=== PATIENT | female | born 1965 | race American Indian/Alaskan Native ===

== ENCOUNTER → 2018-03-12 12:39 | Outpatient (CLI) | payer MEDICAID, OTHER, SELFPAY | PROVIDERS: Family Provider Family Medicine; PCP Family Medicine; Visit Provider Family Medicine | DX: M79.601 Pain in right arm (principal) | CPT/HCPCS: 95886; 95910 ==

== ENCOUNTER 2018-04-14 19:53 | Emergency (ER) | payer MEDICAID, OTHER, SELFPAY ==
[2018-04-14 19:56] VITALS: BP 153/107; PULSE 95; RESP 18; TEMP 36.3; O2SAT 94
--- NOTE | 2018-04-14 20:50 | DI.US.S_ITS ---
PROCEDURE: US PELVIC COMPLETE INDICATIONS: PAIN TECHNIQUE: Real-time scanning was performed of the pelvic organs, with image documentation. Additional endovaginal scanning was necessary due to incomplete visualization of the adnexal and endometrial structures by transabdominal scanning. COMPARISON: [facility], , PELVIC COMPLETE, 03/16/2012, 12:46. FINDINGS: Transabdominal scanning: Limited scanning through the kidneys shows no hydronephrosis. No pathologic free abdominal or pelvic fluid. Endovaginal scanning: Uterus: Surgically absent Ovaries: Surgically absent. No adnexal mass or cyst sonographically identified. IMPRESSION: Negative examination. Status post hysterectomy and bilateral oophorectomy. No hydronephrosis. Dictated by: Ramos Blue M.D. on 04/15/2018 at 8:20 Approved by: Ramos Blue M.D. on 04/15/2018 at 8:27
--- NOTE | 2018-04-14 20:56 | ED.ABDPAIN ---
HPI - Abdominal Pain General Chief Complaint: Abdominal Pain Stated Complaint: LOWER ABDOMINAL PAINS Time Seen by Provider: 04/14/18 20:28 Source: patient Mode of arrival: ambulatory Limitations: no limitations History of Present Illness HPI narrative: 52-year-old female presents with 2 days of gradually worsening pelvic discomfort and the mention of some mild vaginal discharge. She denies any vaginal bleeding. She has had no fever or chills and denies nausea or vomiting. She is not dizzy nor weak or lightheaded. She mentions that her significant other has been unfaithful MD complaint: abdominal pain Onset (ago): day(s) Pain Consistency: constant Location: suprapubic Severity: moderate Quality: cramping Radiation: none Migration to: no migration Relieving factors: nothing Exacerbating factors: nothing Associated symptoms: denies other symptoms Related Data Previous Rx's Medication Instructions Recorded fluticasone 2 spray INTRANASAL BID #16 gm 06/20/16 sumatriptan succinate [Imitrex] 50 mg PO SEE INSTRUCTIONS #10 tab 09/12/16 ipratropium-albuterol [Combivent 0 INH QID #2 inh 10/17/16 Respimat] promethazine 25 mg PO TIDP PRN #20 tab 03/27/17 venlafaxine 75 mg PO BID #60 tab 05/26/17 dicyclomine 20 mg PO TID #90 tab 06/24/17 levothyroxine 0 PO SEE INSTRUCTIONS #15 tab 07/22/17 levothyroxine [Synthroid] 0 PO SEE INSTRUCTIONS #15 tab 07/22/17 diltiazem HCl 240 mg PO QDAY #30 cap 08/25/17 lansoprazole 30 mg PO BID #60 cap 11/04/17 gabapentin [Neurontin] 900 mg PO QID #360 cap 11/20/17 loratadine 10 mg PO QDAYP PRN #30 tab 12/03/17 propranolol 20 mg PO BID #60 tab 12/03/17 citalopram 0 PO SEE INSTRUCTIONS #60 tab 01/01/18 doxycycline monohydrate 100 mg PO BID 14 Days #28 cap 04/14/18 Allergies Allergy/AdvReac Type Severity Reaction Status Date / Time amoxicillin [AMOXICILLIN] Allergy Unknown Unverified 01/14/18 12:20 clindamycin [CLINDAMYCIN] Allergy Unknown Unverified 01/14/18 12:20 doxycycline [DOXYCYCLINE] Allergy Unknown Unverified 01/14/18 12:20 metronidazole [METRONIDAZOLE] Allergy Unknown rash Unverified 01/14/18 12:20 Penicillins [PENICILLINS] Allergy Unknown Unverified 01/14/18 12:20 trimethoprim [TRIMETHOPRIM] Allergy Unknown Unverified 01/14/18 12:20 erythromycin base AdvReac Unknown Unverified 01/14/18 12:20 [ERYTHROMYCIN BASE] IN CONTRAST Allergy Unknown iv contrast Uncoded 01/14/18 12:20 Review of Systems Review of Systems All systems reviewed & are unremarkable except as noted in HPI and below Constitutional Denies chills, Denies fever(s), Denies lethargy and Denies weakness Eyes Denies change in vision, Denies eye discharge, Denies irritation and Denies loss of vision ENT Ears, Nose, Mouth, and Throat: Denies change in voice, Denies neck pain and Denies sore throat Cardiovascular Denies chest pain, Denies irregular heart rhythm, Denies lightheadedness, Denies palpitations, Denies dyspnea, Denies dyspnea on exertion and Denies orthopnea Respiratory Denies cough, Denies dyspnea, Denies dyspnea on exertion and Denies wheezing Gastrointestinal Gastrointestinal: Denies abdominal pain, Denies change in bowel habits, Denies diarrhea, Denies nausea and Denies vomiting Genitourinary Denies hematuria, Reports pelvic pain, Denies flank pain, Denies urinary incontinence, Denies urinary urgency, Reports vaginal discharge and Reports vaginal odor Musculoskeletal Denies neck pain Integumentary/Breasts Denies pruritus, Denies erythema, Denies rash and Denies wounds Neurologic Denies confusion, Denies loss of vision and Denies weakness Psychiatric Denies anxiety, Denies confusion, Denies depression, Denies homicidal ideation and Denies suicidal ideation Endocrine Denies palpitations Hematologic/Lymphatic Denies easy bruising Allergic/Immunologic Denies wheezing Exam Narrative Exam Narrative: 52-year-old female is upset, tearful and uncomfortable Initial Vital Signs Initial Vital Signs: Vital Signs Temperature 97.4 F L 04/14/18 19:56 Pulse Rate 95 H 04/14/18 19:56 Respiratory Rate 18 04/14/18 19:56 Blood Pressure 153/107 H 04/14/18 19:56 Pulse Oximetry 94 04/14/18 19:56 Const General: cooperative, well developed and in distress Nutritional Appearance: well nourished Orientation: alert, awake, oriented x3 and not confused [facility] Head: normocephalic and atraumatic Ears: external ears normal and TM's normal bilaterally Nose: external nose normal and No nasal discharge Face and sinus: sinuses nontender, face symmetric, no sinus tenderness and No dry mucous membranes Mouth: oral mucosae normal and moist mucous membranes Teeth and gingiva: dentition normal Throat: tonsils normal and uvula midline Resp Effort & Inspection: normal respiratory effort, able to speak in complete sentences, no respiratory distress and no use of accessory muscles Auscultation: clear to auscultation bilaterally, no rales, no rhonchi and no wheezes GI Inspection: non-distended Palpation: soft, no hepatosplenomegaly, No guarding, No pulsatile mass and No tender (Suprapubic tenderness) Auscultation: normal bowel sounds General: bimanual renal exam normal bilaterally External Female Exam: external appearance normal Speculum Exam - Vagina: abnormal vaginal discharge, no foreign bodies, no lacerations, no lesions and No vaginal bleeding Speculum Exam - Cervix: cervical tenderness Bimanual Exam- Vagina & Uterus: cervical tenderness OB/External & Speculum: no foreign bodies and No vaginal bleeding Back/Spine/Pelvis Back: No CVA tenderness Cervical Spine: cervical ROM normal and No pain with cervical ROM Thoracic/Lumbar Spine: thoracic and lumbar spine normal to inspection Extrem General: full ROM, no clubbing, cyanosis or edema, no pedal edema and no calf tenderness Course Orders Ordered: ED Orders 04/14/18 20:20 Complete Blood Count AUTO DIFF Stat Comprehensive Metabolic Panel Stat 04/14/18 20:50 US pelvic complete Stat 04/14/18 21:15 Urine Chlamydia Gonorrhea PCR Stat Urine Culture Stat 04/14/18 22:08 Genital Culture Stat Wet Prep Tric BV Eva Stat Discontinued Medications Doxycycline Hyclate (Vibramycin) 100 mg PO NOW ONE Stop: 04/14/18 20:48 Last Admin: 04/14/18 21:18 Dose: 100 mg Sodium Chloride (Normal Saline 0.9%) 1,000 mls @ 1,000 mls/hr IV BOLUS PRN PRN Reason: Fluid replacement Last Infusion: 04/14/18 22:25 Dose: 0 mls/hr Admin: 07/10/18 21:18 Dose: 1,000 mls/hr Ceftriaxone Sodium 250 mg/ (Sodium Chloride) 100 mls @ 200 mls/hr IV NOW ONE Stop: 04/14/18 21:44 Ceftriaxone Sodium 250 mg/ (Sodium Chloride) 50 mls @ 100 mls/hr IV NOW ONE Stop: 04/14/18 21:44 Last Infusion: 04/14/18 21:52 Dose: 0 mls/hr Admin: 04/14/18 21:18 Dose: 100 mls/hr Ondansetron HCl (Zofran) 4 mg IV NOW ONE Stop: 04/14/18 21:51 Last Admin: 04/14/18 21:51 Dose: 4 mg Reevaluation(s) Reevaluation #1: Went through the with discussion with patient about her long list of antibiotic allergies. She states that most of them are incorrect. Specifically we talked about the penicillins and she states she thinks maybe she used to have an allergy but she has had them in the past and has had no problems such as rash, hives or trouble breathing. Additionally we talked about doxycycline and she states she has had that without any difficulty and is unsure how it and up on her list Time: 20:59 Vital Signs - 8 hr 04/14/18 19:56 04/14/18 21:32 04/14/18 22:58 Temperature 97.4 F L Pulse Rate 95 H 87 90 Respiratory Rate 18 18 Blood Pressure 153/107 H Blood Pressure [Left Arm] 138/74 H 110/65 Pulse Oximetry 94 99 99 MDM - Abdominal Pain Differential Diagnosis Differential diagnosis: Likely abdominal pain, acute appendicitis, endometriosis and other (PID vs. other) Medical Records Attestation: I reviewed the patient's medical records. Lab Data Attestation: I reviewed the patient's lab results. Result diagrams: 04/14/18 20:20 04/14/18 20:20 Lab Results 04/14/18 04/14/18 04/14/18 Range/Units 20:20 20:20 21:15 WBC 8.7 (4.5-11.0) X10^3/uL RBC 4.87 (4.0-5.2) X10^6/uL Hgb 13.4 (12.0-16.0) g/dL Hct 39.9 (36-46) % MCV 82.0 (80-100) fL MCH 27.6 (26-34) PG MCHC 33.6 (30-36) % RDW 15.2 H (11.6-14.8) % Plt Count 384 (150-400) X10^3/uL Neut % (Auto) 55.9 (50-75) % Lymph % (Auto) 37.2 (25-40) % Robertson % (Auto) 5.5 (3-14) % Eos % (Auto) 0.4 L (2-4) % Baso % (Auto) 1.0 (0-2) % Neut # (Auto) 4900 (2422-0046) /uL Sodium 140 (137-145) mmol/L Potassium 4.2 (3.4-5.1) mmol/L Chloride 100 (98-107) mmol/L Carbon Dioxide 30 (22-32) mmol/L BUN 11 (7-17) mg/dL Creatinine 0.70 (0.52-1.04) mg/dL Estimated GFR > 60.0 (>60) mL/min BUN/Creatinine Ratio 15.7 (6-22) Glucose 101 H (70-100) mg/dL Calcium 8.9 (8.4-10.2) mg/dL Total Bilirubin 0.3 (0.2-1.3) mg/dL AST 59 H (14-36) IU/L ALT 17 (9-52) IU/L Alkaline Phosphatase 92 (38-126) U/L Total Protein 7.7 (6.3-8.2) g/dL Albumin 4.4 (3.5-5.0) g/dL Globulin 3.3 (1.7-4.1) g/dL Albumin/Globulin Ratio 1.3 (1.0-2.8) Ur Chlamydia DNA (PCR) Not detected N gonorrhoeae DNA (PCR) Not detected Point of care testing: Point of Care Testing Test Results Negative Urine Dip Bedside Urine Glucose Negative Bedside Urine Bilirubin - Negative Bedside Urine Ketone - Negative Urine Specific [place] 1.010 Bedside Urine Occult Blood - Negative Bedside Urine pH 6.0 Bedside Urine Protein - Negative Bedside Urine Urobilinogen - Negative Bedside Urine Nitrite - Negative Bedside Urine Leukocytes - Negative Esterase Imaging Data US - abdomen: Radiologist's impression: NAP Discharge Plan Departure Patient Disposition: Home, Self-Care Clinical Impression: Acute pelvic inflammatory disease (PID) Discharge Date/Time: 04/14/18 23:02 Interventions: ED Discharge Assessment Last Done: 04/14/18 23:01 Instructions: DI for Pelvic Inflammatory Disease Activity Restrictions/Additional Instructions: *You have been diagnosed with [ acute pelvic inflammatory disease ] *What to do: *Take medications as directed *Follow up with your primary care provider in 2-3 days *Return to ER if you should have any new, worsening or concerning symptoms such as worsening pain, fever over 101 F, persistent vomiting, or other bothersome symptoms Prescriptions: New doxycycline monohydrate 100 mg capsule 100 mg PO BID 14 Days Qty: 28 RF: 0 No Action fluticasone 16 GM spray,suspension 2 spray Intranasal BID Qty: 16 RF: 2 sumatriptan succinate [Imitrex] 50 MG tablet 50 mg PO SEE INSTRUCTIONS Qty: 10 RF: 3 ipratropium-albuterol [Combivent Respimat] 4 GM mist INH QID Qty: 2 RF: 11 promethazine 25 MG tablet 25 mg PO TIDP PRNQty: 20 RF: 2 venlafaxine 75 MG tablet 75 mg PO BID Qty: 60 RF: 11 dicyclomine 20 MG tablet 20 mg PO TID Qty: 90 RF: 11 levothyroxine 25 MCG tablet PO SEE INSTRUCTIONS Qty: 15 RF: 5 levothyroxine [Synthroid] 50 MCG tablet PO SEE INSTRUCTIONS Qty: 15 RF: 5 diltiazem HCl 240 MG capsule,extended release 24hr 240 mg PO QDAY Qty: 30 RF: 11 lansoprazole 30 MG capsule,delayed release(DR/EC) 30 mg PO BID Qty: 60 RF: 2 gabapentin [Neurontin] 300 MG capsule 900 mg PO QID Qty: 360 RF: 5 propranolol 20 MG tablet 20 mg PO BID Qty: 60 RF: 5 loratadine 10 MG tablet 10 mg PO QDAYP PRNQty: 30 RF: 11 citalopram 10 MG tablet PO SEE INSTRUCTIONS Qty: 60 RF: 0
[2018-04-14 21:00] LABS: Add Manual Diff / Slide Review NO; Eosinophils Percent Auto 0.4 % (2-4); Hematocrit 39.9 % (36-46); Hemoglobin 13.4 g/dL (12.0-16.0); Lymphocytes Percent Auto 37.2 % (25-40); Mean Corpuscular HGB Conc 33.6 % (30-36); Mean Corpuscular Hemoglobin 27.6 PG (26-34); Monocytes Percent Auto 5.5 % (3-14); Neutrophils Absolute Auto 4900 /uL (3000-5900); Neutrophils Percent Auto 55.9 % (50-75); Platelet Count 384 X10^3/uL (150-400); Red Blood Cell Count 4.87 X10^6/uL (4.0-5.2); Red Cell Distribution Width 15.2 % (11.6-14.8); White Blood Cell Count 8.7 X10^3/uL (4.5-11.0)
[2018-04-14 21:07] LABS: Alanine Aminotransferase 17 IU/L (9-52); Albumin 4.4 g/dL (3.5-5.0); Albumin Globulin Ratio 1.3 (1.0-2.8); Alkaline Phosphatase 92 U/L (38-126); Aspartate Aminotransferase 59 IU/L (14-36); BUN Creatinine Ratio 15.7 (6-22); Bilirubin Total 0.3 mg/dL (0.2-1.3); Blood Urea Nitrogen 11 mg/dL (7-17); Calcium 8.9 mg/dL (8.4-10.2); Carbon Dioxide 30 mmol/L (22-32); Chloride 100 mmol/L (98-107); Estimated Glomerular Filt Rate > 60.0 mL/min (>60); Globulin 3.3 g/dL (1.7-4.1); Glucose 101 mg/dL (70-100); HEMOLYSIS 37 (0-50); Potassium 4.2 mmol/L (3.4-5.1); Sodium 140 mmol/L (137-145); Total Protein 7.7 g/dL (6.3-8.2)
[2018-04-14] MEDS: SODIUM CHLORIDE 0.9% 1,000 ML 1000 ML IV (21:18)
[2018-04-14] MEDS: DOXYCYCLINE HYCLATE 100 MG TABLET PO (21:18)
[2018-04-14 21:32] VITALS: BP 138/74; PULSE 87; O2SAT 99
[2018-04-14] MEDS: ONDANSETRON 4 MG/2 ML INJ IV (21:51)
[2018-04-14 22:58] VITALS: BP 110/65; PULSE 90; RESP 18; O2SAT 99
[2018-04-14 23:05] LABS: Urine N gonorrhoeae NOT DETECTED
[2018-04-14 23:07] LABS: Urine Chlamydia NOT DETECTED
--- NOTE | 2018-04-15 11:36 | PC.NURSE ---
Pt called stating prescription was not at [facility]. Prescription confirmed in Dr. Navarrete's notes. Doxycycline 100 mg po bid x 14 days called into [facility] per pt request.
== END 2018-04-14 23:02 | disposition home or self-care (01) ==
PROVIDERS: Emergency Provider Emergency Medicine
DX: N73.0 Acute parametritis and pelvic cellulitis (principal)
CPT/HCPCS: 36591; 76830; 76856; 80053; 81003; 81025; 85025; 87070; 87086; 87205; 87210; 87491; 87591; 96361; 96365; 96375; 99283; 99284; J0696; J2405

== ENCOUNTER 2018-04-16 14:56 | Emergency (ER) | payer MEDICAID, OTHER, SELFPAY ==
[2018-04-16 15:18] VITALS: BP 145/92; PULSE 88; RESP 17; TEMP 37.1; O2SAT 99; BMI 36.8
--- NOTE | 2018-04-16 15:27 | ED_ITS ---
HPI - Abdominal Pain General Chief Complaint: Abdominal Pain Stated Complaint: PELIVIS AND ABD PAIN Time Seen by Provider: 04/16/18 14:59 Source: patient Mode of arrival: ambulatory Limitations: no limitations History of Present Illness HPI narrative: 52-year-old female seen here in the emergency department a couple days ago for lower abdominal/ pelvic pain. Was diagnosed with PID. Was sent home with antibiotics. She states she started his antibiotics yesterday. She states that since being discharged here she has had continued lower abdominal pain. Describing it as bilateral but left greater than right. Does have some vaginal discharge. No urinary symptoms. No bowel changes. Related Data Previous Rx's Medication Instructions Recorded fluticasone 2 spray INTRANASAL BID #16 gm 06/20/16 sumatriptan succinate [Imitrex] 50 mg PO SEE INSTRUCTIONS #10 tab 09/12/16 ipratropium-albuterol [Combivent 0 INH QID #2 inh 10/17/16 Respimat] promethazine 25 mg PO TIDP PRN #20 tab 03/27/17 venlafaxine 75 mg PO BID #60 tab 05/26/17 dicyclomine 20 mg PO TID #90 tab 06/24/17 levothyroxine 0 PO SEE INSTRUCTIONS #15 tab 07/22/17 levothyroxine [Synthroid] 0 PO SEE INSTRUCTIONS #15 tab 07/22/17 diltiazem HCl 240 mg PO QDAY #30 cap 08/25/17 lansoprazole 30 mg PO BID #60 cap 11/04/17 gabapentin [Neurontin] 900 mg PO QID #360 cap 11/20/17 loratadine 10 mg PO QDAYP PRN #30 tab 12/03/17 propranolol 20 mg PO BID #60 tab 12/03/17 citalopram 0 PO SEE INSTRUCTIONS #60 tab 01/01/18 doxycycline monohydrate 100 mg PO BID 14 Days #28 cap 04/14/18 Allergies Allergy/AdvReac Type Severity Reaction Status Date / Time amoxicillin [AMOXICILLIN] Allergy Unknown Verified 04/16/18 15:17 clindamycin [CLINDAMYCIN] Allergy Unknown Verified 04/16/18 15:17 doxycycline [DOXYCYCLINE] Allergy Unknown Verified 04/16/18 15:17 metronidazole [METRONIDAZOLE] Allergy Unknown rash Verified 04/16/18 15:17 Penicillins [PENICILLINS] Allergy Unknown Verified 04/16/18 15:17 trimethoprim [TRIMETHOPRIM] Allergy Unknown Verified 04/16/18 15:17 erythromycin base AdvReac Unknown Verified 04/16/18 15:17 [ERYTHROMYCIN BASE] IN CONTRAST Allergy Unknown iv contrast Uncoded 01/14/18 12:20 Review of Systems Constitutional Denies chills, Denies fatigue and Denies fever(s) Cardiovascular Denies chest pain and Denies dyspnea Respiratory Denies dyspnea Gastrointestinal Gastrointestinal: Reports abdominal pain, Denies cramping, Denies diarrhea, Reports nausea and Denies vomiting Genitourinary Denies genital lesions, Denies dysuria, Reports pelvic pain, Denies flank pain, Denies urinary hesitancy, Denies urinary urgency and Reports vaginal discharge Musculoskeletal Denies back pain, Denies myalgias and Denies arthralgias Integumentary/Breasts Denies lesions and Denies rash Endocrine Denies fatigue Hematologic/Lymphatic Denies easy bleeding and Denies easy bruising PFSH Social History Smoking Status: Former smoker Exam Initial Vital Signs Initial Vital Signs: Vital Signs Temperature 98.7 F 04/16/18 15:18 Pulse Rate 88 04/16/18 15:18 Respiratory Rate 17 04/16/18 15:18 Blood Pressure 145/92 H 04/16/18 15:18 Pulse Oximetry 99 04/16/18 15:18 Const General: cooperative, healthy appearing, well developed, well groomed and No acute distress Orientation: alert, awake and oriented x3 HENMT Head: normal to inspection Resp Effort & Inspection: normal respiratory effort Auscultation: clear to auscultation bilaterally Cardio Rate: regular rate Pulses: radial pulses present GI Inspection: non-distended Palpation: soft, No firm and tender ( Bilateral left greater than right lower abdominal pain without rebound or guarding) Skin Lesions: no lesions Rashes: no rashes Neuro General: alert, awake and oriented x3 Cognition: normal cognition Speech: speech normal Extrem General: normal to inspection and capillary refill normal Course Orders Ordered: ED Orders 04/16/18 15:29 pelvic complete Stat 04/16/18 16:00 Complete Blood Count AUTO DIFF Stat Comprehensive Metabolic Panel Stat Lipase Stat 04/16/18 16:07 CT abdomen pelvis w con Stat 04/16/18 17:13 Urinalysis and Microscopic Stat Urine Culture Stat Discontinued Medications Diphenhydramine HCl (Benadryl) 50 mg IV NOW ONE Stop: 04/16/18 16:51 Last Admin: 04/16/18 17:06 Dose: 50 mg Methylprednisolone (Solu-Medrol) 40 mg IV NOW ONE Stop: 04/16/18 16:51 Last Admin: 04/16/18 17:06 Dose: 40 mg Morphine Sulfate (Morphine) 4 mg IV NOW ONE Stop: 04/16/18 15:28 Last Admin: 04/16/18 16:06 Dose: 4 mg Ondansetron HCl (Zofran) 4 mg IV NOW ONE Stop: 04/16/18 15:28 Last Admin: 04/16/18 16:06 Dose: 4 mg Vital Signs - 8 hr 04/16/18 15:18 04/16/18 16:34 04/16/18 17:39 Temperature 98.7 F Pulse Rate 88 85 87 Respiratory Rate 17 16 16 Blood Pressure 145/92 H Blood Pressure [Right Arm] 120/82 H 117/90 H Pulse Oximetry 99 95 97 04/16/18 19:10 Temperature Pulse Rate 84 Respiratory Rate 16 Blood Pressure Blood Pressure [Right Arm] 119/89 H Pulse Oximetry 96 MDM - Abdominal Pain Medical Records Attestation: I reviewed the patient's medical records. Lab Data Attestation: I reviewed the patient's lab results. Result diagrams: 04/16/18 16:00 04/16/18 16:00 Lab Results 04/16/18 04/16/18 04/16/18 Range/Units 16:00 16:00 17:13 WBC 7.6 (4.5-11.0) X10^3/uL RBC 5.07 (4.0-5.2) X10^6/uL Hgb 14.0 (12.0-16.0) g/dL Hct 41.8 (36-46) % MCV 82.5 (80-100) fL MCH 27.6 (26-34) PG MCHC 33.4 (30-36) % RDW 14.7 (11.6-14.8) % Plt Count 341 (150-400) X10^3/uL Neut % (Auto) 65.7 (50-75) % Lymph % (Auto) 27.5 (25-40) % [place] % (Auto) 5.4 (3-14) % Eos % (Auto) 0.3 L (2-4) % Baso % (Auto) 1.1 (0-2) % Neut # (Auto) 5000 (4349-5226) /uL Sodium 141 (137-145) mmol/L Potassium 4.4 (3.4-5.1) mmol/L Chloride 100 (98-107) mmol/L Carbon Dioxide 31 (22-32) mmol/L BUN 7 (7-17) mg/dL Creatinine 0.80 (0.52-1.04) mg/dL Estimated GFR > 60.0 (>60) mL/min BUN/Creatinine Ratio 8.8 (6-22) Glucose 91 (70-100) mg/dL Calcium 9.2 (8.4-10.2) mg/dL Total Bilirubin 0.4 (0.2-1.3) mg/dL AST 32 (14-36) IU/L ALT 26 (9-52) IU/L Alkaline Phosphatase 91 (38-126) U/L Total Protein 7.8 (6.3-8.2) g/dL Albumin 4.6 (3.5-5.0) g/dL Globulin 3.2 (1.7-4.1) g/dL Albumin/Globulin Ratio 1.4 (1.0-2.8) Lipase 49 (23-300) U/L Urine Color Yellow Urine Appearance Clear Urine pH 5.5 (4.5-8.0) Ur Specific [place] 1.010 (1.000-1.035) Urine Protein Negative (Negative) Urine Glucose (UA) Negative (Normal) g/dL Urine Ketones Negative (NEGATIVE) Urine Occult Blood Negative (Negative) Urine Nitrate Negative (Negative) Urine Bilirubin Negative (NEGATIVE) Urine Urobilinogen 0.2 (0.2) E.U./dL Ur Leukocyte Esterase Negative (NEGATIVE) Urine RBC None seen (0-5/HPF) Urine WBC None seen (0-5/HPF) Ur Squamous Epith Cells 0-1 /hpf Urine Bacteria None seen (None) Ur Culture Indicated? Not Reportable Micro UA Comment Not Reportable Point of care testing: Urine Dip Bedside Urine Glucose Negative Bedside Urine Bilirubin - Negative Bedside Urine Ketone - Negative Urine Specific [place] 1.020 Bedside Urine Occult Blood - Negative Bedside Urine pH 6.0 Bedside Urine Protein - Negative Bedside Urine Urobilinogen - Negative Bedside Urine Nitrite - Negative Bedside Urine Leukocytes - Negative Esterase Imaging Data ultrasound pelvis: Radiologist's impression: ROCEDURE: US PELVIC COMPLETE INDICATIONS: PAIN; POSSIBLE TOA TECHNIQUE: Real-time scanning was performed of the pelvic organs, with image documentation. Additional endovaginal scanning was necessary due to incomplete visualization of the adnexal and endometrial structures by transabdominal scanning. COMPARISON: [facility], CT, ABDOMEN/PELVIS WITHOUT CONTRAS, 01/19/2016, 16: 02. [facility], , US PELVIC COMPLETE, 04/14/2018, 22:31. FINDINGS: Transabdominal scanning: Limited scanning through the kidneys shows no hydronephrosis. No pathologic free abdominal or pelvic fluid. Endovaginal scanning: Uterus: Uterus is surgically absent. Ovaries: Ovaries are not visualize, presumably secondary to bilateral oophorectomy. No mass or free fluid in the adnexa or cul-de-sac. IMPRESSION: 1. No ultrasound findings to explain pelvic pain. 2. Hysterectomy and bilateral oophorectomy. 3. No free fluid. Dictated by: Venice Xie M.D. on 04/16/2018 at 16:25 CT scan - abdomen: Radiologist's impression: PROCEDURE: CT ABDOMEN PELVIS W CON INDICATIONS: Bilateral lower abdominal pain left greater than right TECHNIQUE: After the administration of intravenous contrast, 5 mm thick sections acquired from the diaphragm to the symphysis. 5 mm coronal and sagittal reformats were acquired. For radiation dose reduction, the following was used: automated exposure control, adjustment of mA and/or kV according to patient size. COMPARISON: [facility], CT, ABDOMEN/PELVIS WITH CONTRAST, 03/08/2013, 4: 22. [facility], CT, ABDOMEN/PELVIS WITHOUT CONTRAS, 01/19/2016, 16:02. [facility] , , US PELVIC COMPLETE, 04/16/2018, 15:55. [facility], , US PELVIC COMPLETE, 07/2018, 22:31. [facility], CT, ABDOMEN/PELVIS WITH CONTRAST, 07/07/2014, 20:16. FINDINGS: Image quality: Excellent. ABDOMEN: Lung bases: Lung bases are clear. Heart size is normal. Solid organs: Liver is normal in size and enhancement. Gallbladder has been removed. Biliary system is non dilated for a post cholecystectomy patient. Pancreas enhances normally. Spleen is normal in size and enhancement. No adrenal nodules. Kidneys demonstrate normal size and enhancement, without hydronephrosis. Peritoneum and bowel: Bowel loops demonstrate normal wall thickness and caliber. No free fluid or air. Incidental note is made of a normal-appearing appendix. Nodes and vessels: No retroperitoneal or mesenteric adenopathy by size criteria. Aorta and inferior vena cava are normal in size. Miscellaneous: No ventral hernias. Postoperative change from prior umbilical hernia repair can be seen. PELVIS: Genitourinary: Bladder wall thickness is normal. This patient is status post hysterectomy. No adnexal masses are seen. Miscellaneous: No enlarged inguinal or pelvic lymph nodes are seen. There is a fat-containing left inguinal hernia seen. Bones: No suspicious bony lesions. No vertebral body compression fractures. Degenerative changes are seen throughout. Fusion of the sacroiliac joints can be seen, left worse than right. Mild levoconvex scoliotic curvature is noted. IMPRESSION: No imaging explanation is found for this patient's presenting history of bilateral lower abdominal pain. Negative for diverticulitis. Normal appendix. Incidental note is made of: Hysterectomy Cholecystectomy Prior periumbilical hernia repair Mild fat containing left inguinal hernia Dictated by: Cristobal Hill M.D. on 04/16/2018 at 17:00 Approved by: Cristobal Hill M.D. on 04/16/2018 at 17:04 [facility] Narrative Medical decision making narrative: patient is currently being treated for PID. Pelvic ultrasound is negative for any abscess. CT scan of her abdomen shows no acute pathology. No indication to switch antibiotics. No indication for further workup. No indication for admission the hospital. Informed patient of the results of her scans. We discussed the importance of her continuing with the antibiotics. She expressed understanding and agreement with plan. Discharge Plan Departure Patient Disposition: Home, Self-Care Clinical Impression: Abdominal pain Discharge Date/Time: 04/16/18 19:54 Interventions: ED Discharge Assessment Last Done: 04/16/18 19:52 Instructions: DI for Abdominal Pain-Adult Activity Restrictions/Additional Instructions: continue to take the antibiotics that she were given on her last ER visit as directed. You can take Tylenol or Motrin for any discomfort. Call your primary care doctor for a follow-up. Return to the emergency department for any new or worsening symptoms Prescriptions: No Action fluticasone 16 GM spray,suspension 2 spray Intranasal BID Qty: 16 RF: 2 sumatriptan succinate [Imitrex] 50 MG tablet 50 mg PO SEE INSTRUCTIONS Qty: 10 RF: 3 ipratropium-albuterol [Combivent Respimat] 4 GM mist INH QID Qty: 2 RF: 11 promethazine 25 MG tablet 25 mg PO TIDP PRNQty: 20 RF: 2 venlafaxine 75 MG tablet 75 mg PO BID Qty: 60 RF: 11 dicyclomine 20 MG tablet 20 mg PO TID Qty: 90 RF: 11 levothyroxine 25 MCG tablet PO SEE INSTRUCTIONS Qty: 15 RF: 5 levothyroxine [Synthroid] 50 MCG tablet PO SEE INSTRUCTIONS Qty: 15 RF: 5 diltiazem HCl 240 MG capsule,extended release 24hr 240 mg PO QDAY Qty: 30 RF: 11 lansoprazole 30 MG capsule,delayed release(DR/EC) 30 mg PO BID Qty: 60 RF: 2 gabapentin [Neurontin] 300 MG capsule 900 mg PO QID Qty: 360 RF: 5 propranolol 20 MG tablet 20 mg PO BID Qty: 60 RF: 5 loratadine 10 MG tablet 10 mg PO QDAYP PRNQty: 30 RF: 11 citalopram 10 MG tablet PO SEE INSTRUCTIONS Qty: 60 RF: 0 doxycycline monohydrate 100 mg capsule 100 mg PO BID 14 Days Qty: 28 RF: 0
[2018-04-16] MEDS: ONDANSETRON 4 MG/2 ML INJ IV (16:06)
[2018-04-16] MEDS: MORPHINE 4 MG/ML INJ IV (16:06)
--- NOTE | 2018-04-16 16:07 | DI.CT.S_ITS ---
PROCEDURE: CT ABDOMEN PELVIS W CON INDICATIONS: Bilateral lower abdominal pain left greater than right TECHNIQUE: After the administration of intravenous contrast, 5 mm thick sections acquired from the diaphragm to the symphysis. 5 mm coronal and sagittal reformats were acquired. For radiation dose reduction, the following was used: automated exposure control, adjustment of mA and/or kV according to patient size. COMPARISON: [facility], CT, ABDOMEN/PELVIS WITH CONTRAST, 03/08/2013, 4:22. [facility], CT, ABDOMEN/PELVIS WITHOUT CONTRAS, 01/19/2016, 16:02. [facility], [place], US PELVIC COMPLETE, 04/16/2018, 15:55. [facility], [place], US PELVIC COMPLETE, 04/14/2018, 22:31. [facility], CT, ABDOMEN/PELVIS WITH CONTRAST, 07/07/2014, 20:16. FINDINGS: Image quality: Excellent. ABDOMEN: Lung bases: Lung bases are clear. Heart size is normal. Solid organs: Liver is normal in size and enhancement. Gallbladder has been removed. Biliary system is non dilated for a post cholecystectomy patient. Pancreas enhances normally. Spleen is normal in size and enhancement. No adrenal nodules. Kidneys demonstrate normal size and enhancement, without hydronephrosis. Peritoneum and bowel: Bowel loops demonstrate normal wall thickness and caliber. No free fluid or air. Incidental note is made of a normal-appearing appendix. Nodes and vessels: No retroperitoneal or mesenteric adenopathy by size criteria. Aorta and inferior vena cava are normal in size. Miscellaneous: No ventral hernias. Postoperative change from prior umbilical hernia repair can be seen. PELVIS: Genitourinary: Bladder wall thickness is normal. This patient is status post hysterectomy. No adnexal masses are seen. Miscellaneous: No enlarged inguinal or pelvic lymph nodes are seen. There is a fat-containing left inguinal hernia seen. Bones: No suspicious bony lesions. No vertebral body compression fractures. Degenerative changes are seen throughout. Fusion of the sacroiliac joints can be seen, left worse than right. Mild levoconvex scoliotic curvature is noted. IMPRESSION: No imaging explanation is found for this patient's presenting history of bilateral lower abdominal pain. Negative for diverticulitis. Normal appendix. Incidental note is made of: Hysterectomy Cholecystectomy Prior periumbilical hernia repair Mild fat containing left inguinal hernia Dictated by: Cristobal Hill M.D. on 04/16/2018 at 17:00 Approved by: Cristobal Hill M.D. on 04/16/2018 at 17:04
[2018-04-16 16:12] LABS: Add Manual Diff / Slide Review NO; Basophils Percent Auto 1.1 % (0-2); Eosinophils Percent Auto 0.3 % (2-4); Hematocrit 41.8 % (36-46); Lymphocytes Percent Auto 27.5 % (25-40); Mean Corpuscular HGB Conc 33.4 % (30-36); Mean Corpuscular Hemoglobin 27.6 PG (26-34); Mean Corpuscular Volume 82.5 fL (80-100); Monocytes Percent Auto 5.4 % (3-14); Neutrophils Absolute Auto 5000 /uL (3000-5900); Neutrophils Percent Auto 65.7 % (50-75); Platelet Count 341 X10^3/uL (150-400); Red Blood Cell Count 5.07 X10^6/uL (4.0-5.2); Red Cell Distribution Width 14.7 % (11.6-14.8); White Blood Cell Count 7.6 X10^3/uL (4.5-11.0)
[2018-04-16 16:22] LABS: Alanine Aminotransferase 26 IU/L (9-52); Albumin 4.6 g/dL (3.5-5.0); Albumin Globulin Ratio 1.4 (1.0-2.8); Alkaline Phosphatase 91 U/L (38-126); Aspartate Aminotransferase 32 IU/L (14-36); BUN Creatinine Ratio 8.8 (6-22); Bilirubin Total 0.4 mg/dL (0.2-1.3); Blood Urea Nitrogen 7 mg/dL (7-17); Calcium 9.2 mg/dL (8.4-10.2); Carbon Dioxide 31 mmol/L (22-32); Chloride 100 mmol/L (98-107); Estimated Glomerular Filt Rate > 60.0 mL/min (>60); Globulin 3.2 g/dL (1.7-4.1); Glucose 91 mg/dL (70-100); HEMOLYSIS < 15 (0-50); Lipase 49 U/L (23-300); Potassium 4.4 mmol/L (3.4-5.1); Sodium 141 mmol/L (137-145); Total Protein 7.8 g/dL (6.3-8.2)
[2018-04-16 16:34] VITALS: BP 120/82; PULSE 85; RESP 16; O2SAT 95
[2018-04-16] MEDS: diphenhydrAMINE 50 MG/ML VIAL IV (17:06)
[2018-04-16 17:23] LABS: Bacteria Urine None Seen; RBC Urine None Seen (0-5/HPF); WBC Urine None Seen (0-5/HPF)
[2018-04-16 17:24] LABS: Appearance Urine UA CLEAR; Bilirubin Urine UA NEGATIVE (NEGATIVE); Color Urine UA YELLOW; Glucose Urine UA NEGATIVE (Normal); Ketones Urine UA NEGATIVE (NEGATIVE); Leukocyte Esterase Urine UA NEGATIVE (NEGATIVE); Nitrite Urine UA Negative (Negative); Occult Blood Urine UA NEGATIVE (Negative); Protein Urine UA NEGATIVE (Negative); Urobilinogen Urine UA 0.2 E.U./dL (0.2); pH Urine UA 5.5 (4.5-8.0)
[2018-04-16 17:32] LABS: Squamous Epithelial Cell Urine 0-1 /HPF
[2018-04-16 17:39] VITALS: BP 117/90; PULSE 87; RESP 16; O2SAT 97
[2018-04-16 19:10] VITALS: BP 119/89; PULSE 84; RESP 16; O2SAT 96
== END 2018-04-16 19:54 | disposition home or self-care (01) ==
PROVIDERS: Emergency Provider Emergency Medicine
DX: R10.9 Unspecified abdominal pain (principal)
CPT/HCPCS: 36591; 74177; 76830; 76856; 80053; 81001; 81003; 83690; 85025; 87086; 96374; 96375; 99283; 99284; J1200; J2270; J2405; J2920; Q9967

== ENCOUNTER 2018-05-20 16:33 | Emergency (ER) | payer MEDICAID, OTHER, SELFPAY ==
[2018-05-20 16:43] VITALS: BP 128/80; PULSE 71; RESP 14; TEMP 36.5; O2SAT 97; BMI 35.1
--- NOTE | 2018-05-20 17:23 | ED_ITS ---
HPI - Extremity Problem <DAYRON Santo - Last Filed: 05/20/18 21:53> General Chief complaint: Extremity Problem,Nontraumatic Stated complaint: states hang nail left foot big toe Time Seen by Provider: 05/20/18 17:13 Source: patient Mode of arrival: ambulatory Limitations: no limitations History of Present Illness HPI Narrative: 52-year-old female here for complaint of having ingrown toenail to her left great toe over the past 3 days. She denies any trauma to the area. She states that she has had some purulent drainage from the area. She reports increasing pain over the past day and half. She is ambulatory to the emergency room. No fevers no chills. No other concerns or complaints at this time. MD Complaint: extremity pain Related Data Home Medications Medication Instructions Recorded Confirmed citalopram 10 mg PO BID 05/20/18 05/20/18 ipratropium-albuterol [Combivent 1 puff INH BID 05/20/18 05/20/18 Respimat] levothyroxine 25 mcg PO DAILY 05/20/18 05/20/18 loratadine 10 mg PO QDAYP PRN 05/20/18 05/20/18 promethazine 25 mg PO TIDP PRN 05/20/18 05/20/18 sumatriptan succinate [Imitrex] 50 mg PO SEE INSTRUCTIONS PRN 05/20/18 05/20/18 Previous Rx's Medication Instructions Recorded venlafaxine 75 mg PO BID #60 tab 05/26/17 dicyclomine 20 mg PO TID #90 tab 06/24/17 diltiazem HCl 240 mg PO QDAY #30 cap 08/25/17 lansoprazole 30 mg PO BID #60 cap 11/04/17 gabapentin [Neurontin] 900 mg PO QID #360 cap 11/20/17 propranolol 20 mg PO BID #60 tab 12/03/17 Allergies Allergy/AdvReac Type Severity Reaction Status Date / Time amoxicillin [AMOXICILLIN] Allergy Unknown Verified 05/20/18 16:43 clindamycin [CLINDAMYCIN] Allergy Unknown Verified 05/20/18 16:43 doxycycline [DOXYCYCLINE] Allergy Unknown Verified 05/20/18 16:43 metronidazole [METRONIDAZOLE] Allergy Unknown rash Verified 05/20/18 16:43 Penicillins [PENICILLINS] Allergy Unknown Verified 05/20/18 16:43 trimethoprim [TRIMETHOPRIM] Allergy Unknown Verified 05/20/18 16:43 erythromycin base AdvReac Unknown Verified 05/20/18 16:43 [ERYTHROMYCIN BASE] IN CONTRAST Allergy Unknown iv contrast Uncoded 01/14/18 12:20 Review of Systems <DAYRON Santo - Last Filed: 05/20/18 21:53> Constitutional Denies chills, Denies fever(s), Denies lethargy and Denies weakness Eyes Denies change in vision, Denies eye discharge, Denies irritation and Denies loss of vision ENT Ears, Nose, Mouth, and Throat: Denies change in voice, Denies neck pain and Denies sore throat Cardiovascular Denies chest pain, Denies irregular heart rhythm, Denies lightheadedness, Denies palpitations, Denies dyspnea, Denies dyspnea on exertion and Denies orthopnea Respiratory Denies cough, Denies dyspnea, Denies dyspnea on exertion and Denies wheezing Gastrointestinal Gastrointestinal: Denies abdominal pain, Denies change in bowel habits, Denies diarrhea, Denies nausea and Denies vomiting Genitourinary Denies hematuria, Denies flank pain, Denies urinary incontinence and Denies urinary urgency Musculoskeletal Denies neck pain Comments: Ingrown left great toenail Integumentary/Breasts Denies pruritus, Denies erythema, Denies rash and Denies wounds Neurologic Denies confusion, Denies loss of vision and Denies weakness Psychiatric Denies anxiety, Denies confusion, Denies depression, Denies homicidal ideation and Denies suicidal ideation Endocrine Denies palpitations Hematologic/Lymphatic Denies easy bruising Allergic/Immunologic Denies wheezing Exam <DAYRON Santo - Last Filed: 05/20/18 21:53> Initial Vital Signs Initial Vital Signs: Vital Signs Temperature 97.7 F 05/20/18 16:43 Pulse Rate 71 05/20/18 16:43 Respiratory Rate 14 05/20/18 16:43 Blood Pressure 128/80 H 05/20/18 16:43 Pulse Oximetry 97 05/20/18 16:43 Const General: cooperative and well developed Nutritional Appearance: well nourished Orientation: alert, awake, oriented x3 and not confused HENMT Mouth: oral mucosae normal and moist mucous membranes Eyes Conjunctivae: conjunctivae normal Sclera: sclerae normal Pupils: PERRL EOM: EOM intact bilaterally Chest Chest: normal inspection of the chest Resp Effort & Inspection: normal respiratory effort, able to speak in complete sentences, no respiratory distress and no use of accessory muscles Auscultation: clear to auscultation bilaterally, no rales, no rhonchi and no wheezes Cardio Rate: regular rate Rhythm: regular rhythm Heart Sounds: no click, no gallops, no murmurs and no rubs Pulses: normal peripheral pulses Skin General: no rashes or lesions noted, No jaundice and No petechiae Neuro General: alert, oriented x3, gait normal and no focal motor deficits Speech: speech normal Extrem Other: Erythema and tenderness to the left lateral nail fold. No purulent drainage observed. Distal sensation is intact. Distal cap refill less than 2 sec. Full range of motion of the left toe. <Suleman Navarrete DO - Last Filed: 05/21/18 14:58> Initial Vital Signs Initial Vital Signs: Vital Signs Temperature 97.7 F 05/20/18 16:43 Pulse Rate 71 05/20/18 16:43 Respiratory Rate 14 05/20/18 16:43 Blood Pressure 128/80 H 05/20/18 16:43 Pulse Oximetry 97 05/20/18 16:43 Procedures <DAYRON Santo - Last Filed: 05/20/18 21:53> [facility] Procedure Name of Procedure: Left great toenail wedge resection Side (if applicable): left Location: Left great toenail lateral aspect Technique/Description of procedure performed: Left great toe local anesthesia provided with digital block using 4 mL 1% lidocaine. Lateral left great toenail wedge excision completed with no complications. Patient tolerated well. Wound dressed with bacitracin and a dressing. Patient tolerated procedure: Well Complications: none Course <DAYRON Santo - Last Filed: 05/20/18 21:53> Vital Signs - 8 hr 05/20/18 16:43 05/20/18 17:54 Temperature 97.7 F Pulse Rate 71 72 Respiratory Rate 14 18 Blood Pressure 128/80 H 116/82 H Pulse Oximetry 97 100 <Suleman Navarrete DO - Last Filed: 05/21/18 14:58> Vital Signs - 8 hr 05/20/18 16:43 05/20/18 17:54 Temperature 97.7 F Pulse Rate 71 72 Respiratory Rate 14 18 Blood Pressure 128/80 H 116/82 H Pulse Oximetry 97 100 MDM - Extremity (Nontraumatic) <DAYRON Santo - Last Filed: 05/20/18 21:53> [facility] Narrative Medical decision making narrative: Discussed with patient options for treatment patient would like to have wedge excision of left great toenail which was completed in the emergency room with no complications. Patient with multiple antibiotic allergies will treat with topical antibiotics only at this point. [id number] Tylenol Motrin as needed for any discomfort. Dress wound daily with bacitracin and dressing until healed. Recommended patient obtained primary care provider and follow up with primary care provider. Return emergency room for any worsening symptoms. Discharge Plan Departure Patient Disposition: Home Clinical Impression: Ingrowing left great toenail Discharge Date/Time: 05/20/18 18:04 Interventions: ED Discharge Assessment Last Done: 05/20/18 17:54 Instructions: DI for Ingrown Toenail Activity Restrictions/Additional Instructions: Left ingrown toenail was treated by doing a wedge excision to remove portion of the toenail that was ingrown. Wound dressed with bacitracin and a dressing and use [id number] Tylenol or Motrin as needed for any discomfort. Dress wound daily with bacitracin and dressing until healed. Obtain primary care and Follow up with primary care provider next week. For any worsening symptoms return to the emergency room. Prescriptions: No Action venlafaxine 75 MG tablet 75 mg PO BID Qty: 60 RF: 11 dicyclomine 20 MG tablet 20 mg PO TID Qty: 90 RF: 11 diltiazem HCl 240 MG capsule,extended release 24hr 240 mg PO QDAY Qty: 30 RF: 11 lansoprazole 30 MG capsule,delayed release(DR/EC) 30 mg PO BID Qty: 60 RF: 2 gabapentin [Neurontin] 300 MG capsule 900 mg PO QID Qty: 360 RF: 5 propranolol 20 MG tablet 20 mg PO BID Qty: 60 RF: 5 citalopram 10 MG tablet 10 mg PO BID RF: 0 levothyroxine 25 MCG tablet 25 mcg PO DAILY RF: 0 sumatriptan succinate [Imitrex] 50 MG tablet 50 mg PO SEE INSTRUCTIONS PRN (Reason: Migraine Headache) RF: 0 promethazine 25 MG tablet 25 mg PO TIDP PRN (Reason: Nausea And Vomiting) RF: 0 loratadine 10 MG tablet 10 mg PO QDAYP PRN (Reason: Allergy Symptoms) RF: 0 ipratropium-albuterol [Combivent Respimat] 4 GM mist 1 puff INH BID RF: 0 Referrals: [facility] [Provider Group] <Suleman Navarrete, - Last Filed: 05/21/18 14:58> Cosign ED Attending Gutierrez Attestation: I was immediately available in the department for consultation. Documentation has been reviewed. I agree with assessment and plan.
[2018-05-20 17:54] VITALS: BP 116/82; PULSE 72; RESP 18; O2SAT 100
== END 2018-05-20 18:04 | disposition home or self-care (01) ==
PROVIDERS: Emergency Provider Nurse Practitioner Family
DX: L60.0 Ingrowing nail (principal)
CPT/HCPCS: 11730; 99282; 99283

== ENCOUNTER → 2018-07-23 14:51 | Outpatient (CLI) | payer MEDICAID, OTHER, SELFPAY ==
--- NOTE | 2018-07-23 | DI.RAD.S_ITS ---
PROCEDURE: XR CHEST 2V INDICATIONS: ELEVATED WBC COUNT AND COUGH TECHNIQUE: 2 views of the chest were acquired. COMPARISON: [facility], , CHEST 1 VIEW, 11/06/2016, 1:28. FINDINGS: Surgical changes and devices: None. Lungs and pleura: No pleural effusions or pneumothorax. Lungs are clear. Mediastinum: Mediastinal contours are normal. Heart size is normal. Bones and chest wall: No suspicious bony abnormalities. Soft tissues appear unremarkable. IMPRESSION: No acute disease. Dictated by: Ramos Blue M.D. on 07/23/2018 at 16:07 Approved by: Ramos Blue M.D. on 07/23/2018 at 16:08
[2018-07-23 15:28] LABS: Add Manual Diff / Slide Review NO; Basophils Percent Auto 0.2 % (0-2); Eosinophils Percent Auto 0.6 % (2-4); Hemoglobin 13.9 g/dL (12.0-16.0); Lymphocytes Percent Auto 25.9 % (25-40); Mean Corpuscular HGB Conc 33.2 % (30-36); Mean Corpuscular Hemoglobin 27.7 PG (26-34); Mean Corpuscular Volume 83.4 fL (80-100); Monocytes Percent Auto 5.2 % (3-14); Neutrophils Absolute Auto 8900 /uL (3000-5900); Neutrophils Percent Auto 68.1 % (50-75); Platelet Count 387 X10^3/uL (150-400); Red Blood Cell Count 5.03 X10^6/uL (4.0-5.2); White Blood Cell Count 13.1 X10^3/uL (4.5-11.0)
[2018-07-23 15:47] LABS: Alanine Aminotransferase 20 IU/L (9-52); Albumin 4.3 g/dL (3.5-5.0); Albumin Globulin Ratio 1.3 (1.0-2.8); Alkaline Phosphatase 96 U/L (38-126); Aspartate Aminotransferase 21 IU/L (14-36); BUN Creatinine Ratio 14.4 (6-22); Bilirubin Total 0.5 mg/dL (0.2-1.3); Blood Urea Nitrogen 13 mg/dL (7-17); Calcium 8.6 mg/dL (8.4-10.2); Carbon Dioxide 27 mmol/L (22-32); Chloride 106 mmol/L (98-107); Estimated Glomerular Filt Rate > 60.0 mL/min (>60); Globulin 3.2 g/dL (1.7-4.1); Glucose 88 mg/dL (70-100); HEMOLYSIS < 15 (0-50); Potassium 4.3 mmol/L (3.4-5.1); Sodium 145 mmol/L (137-145); Total Protein 7.5 g/dL (6.3-8.2)
== END ==
PROVIDERS: Visit Provider Family Medicine
DX: D72.829 Elevated white blood cell count, unspecified (principal)
CPT/HCPCS: 36415; 71046; 80053; 85025

== ENCOUNTER → 2018-07-30 13:00 | Outpatient (CLI) | payer MEDICAID, OTHER, SELFPAY ==
--- NOTE | 2018-07-31 16:05 | PM.PFT.1 ---
Pulmonary Function Test Referral & Results Date Patient Seen: 07/30/18 Requesting provider: Joleen Garnett Indication: Cough Results: The spirometry demonstrates an FVC of 3.40 L which is 180% of predicted. The FEV1 was measured at 2.85 L which is 115% of predicted. The FEV1/FVC ratio was 80 for which is 104% of predicted. Following the administration of bronchodilator there was no appreciable change to above normal numbers. Lung volumes show an SVC of 3.23 L which is 111% of predicted. The diffusing capacity was measured at 18.8 for which is 93% of predicted. The maximum voluntary ventilation was slightly reduced Interpretation: This study demonstrates normal pulmonary function
== END ==
PROVIDERS: Visit Provider Physician Assistant
DX: R05 Cough (principal)
CPT/HCPCS: 94010; 94060; 94726; 94729

== ENCOUNTER 2022-09-13 | Emergency (ER) | payer MEDICAID, OTHER, SELFPAY ==
[2022-09-13] VITALS (19 sets, daily range): BP systolic 131–158; BP diastolic 77–93; PULSE 105–133; RESP 18–42; TEMP 36.7; O2SAT 95–97; BMI 16.2
--- NOTE | 2022-09-13 00:11 | DI.RAD.S_ITS ---
PROCEDURE: XR CHEST 1V INDICATIONS: SOB TECHNIQUE: One view of the chest was acquired. COMPARISON: [facility], CR, XR CHEST 2V, 07/23/2018, 14:42. FINDINGS: Surgical changes and devices: None. Lungs and pleura: Lungs are clear. No pleural effusions or pneumothorax. Mediastinum: Mediastinal contours appear normal. Heart size is normal. Bones and chest wall: No suspicious bony lesions. Overlying soft tissues appear unremarkable. IMPRESSION: 1. No acute cardiopulmonary disease. Dictated by: Berny Shafer M.D. on 09/13/2022 at 1:22 Approved by: Berny Shafer M.D. on 09/13/2022 at 1:22
[2022-09-13] MEDS: ONDANSETRON 4 MG/2 ML INJ IV (00:19)
[2022-09-13] MEDS: PANTOPRAZOLE 40 MG VIAL IV (00:19)
[2022-09-13] MEDS: SODIUM CHLORIDE 0.9% 1,000 ML 1000 ML IV (00:20)
[2022-09-13 01:00] LABS: Add Manual Diff / Slide Review NO; Basophils Absolute Auto 0 /uL (0-100); Basophils Percent Auto 0.1 % (0-2); Eosinophils Absolute Auto 0 /uL (0-450); Hematocrit 36.7 % (36-46); Hemoglobin 12.2 g/dL (12.0-16.0); Lymphocytes Absolute Auto 300 /uL (1100-4500); Mean Corpuscular HGB Conc 33.3 % (30-36); Mean Corpuscular Volume 81.3 fL (80-100); Monocytes Absolute Auto 500 /uL (0-900); Monocytes Percent Auto 9.7 % (3-14); Neutrophils Absolute Auto 3900 /uL (1500-7000); Neutrophils Percent Auto 84.2 % (50-75); Platelet Count 230 X10^3/uL (150-400); Red Blood Cell Count 4.51 X10^6/uL (4.0-5.2); Red Cell Distribution Width 14.1 % (11.6-14.8); White Blood Cell Count 4.7 X10^3/uL (4.5-11.0)
[2022-09-13 01:02] LABS: Alanine Aminotransferase 17 IU/L (<35); Albumin 3.6 g/dL (3.5-5.0); Albumin Globulin Ratio 1.2 (1.0-2.8); Alkaline Phosphatase 116 U/L (38-126); Aspartate Aminotransferase 23 IU/L (14-36); BUN Creatinine Ratio 9.3 (6-22); Bilirubin Total 0.4 mg/dL (0.2-1.3); Blood Urea Nitrogen 5 mg/dL (7-17); Calcium 7.8 mg/dL (8.4-10.2); Carbon Dioxide 23 mmol/L (22-32); Chloride 106 mmol/L (98-107); Estimated Glomerular Filt Rate > 60 mL/min (>60); Globulin 3.1 g/dL (1.7-4.1); Glucose 126 mg/dL (70-100); HEMOLYSIS < 15 (0-50); Potassium 2.9 mmol/L (3.4-5.1); Sodium 141 mmol/L (137-145); Total Protein 6.7 g/dL (6.3-8.2)
[2022-09-13 01:10] LABS: NT-proBNP (BNP-Adult 18+) 1390 pg/mL (<125)
[2022-09-13 01:35] LABS: Influenza A - CEPHEID Flu A POSITIVE (NEGATIVE); Influenza B - CEPHEID Flu B NEGATIVE (NEGATIVE); Respiratory Syncytial Virus Negative (Negative)
[2022-09-13 01:36] LABS: COVID-19 CEPHEID 4-PLEX PCR Negative (Negative)
[2022-09-13] MEDS: POTASSIUM CHLORIDE 20 MEQ TAB 40 MEQ PO (01:39)
[2022-09-13 01:50] LABS: UR Morphine/Opiate cutoff 300 Negative (Negative); Ur Creatinine Normal (Normal); Ur Specific Gravity Normal (Normal); Urine Amphetamines Negative (Negative); Urine Cocaine Negative (Negative); Urine Tetrahydrocannabinol Negative (Negative); Urine pH Normal (Normal)
[2022-09-13 01:51] LABS: Urine Barbiturates Negative (Negative); Urine Benzodiazepines Negative (Negative); Urine MDMA Negative (Negative); Urine Methadone Negative (Negative); Urine Methamphetamines Positive (Negative); Urine Oxycodone Negative (Negative); Urine Phencyclidine Negative (Negative); Urine Tricyclic Antidepressant Negative (Negative)
--- NOTE | 2022-09-13 02:12 | ED_ITS ---
HPI - Anxiety General Chief Complaint: Anxiety Stated Complaint: SOB Time Seen by Provider: 09/13/22 00:10 Source: patient and EMS Mode of arrival: EMS History of Present Illness HPI narrative: 56-year-old female smoker, opioid abuse with history of chronic pain, migraines, prior overdoses, hypothyroid, depression and fibromyalgia presents by EMS with a chief complaint of shortness of breath, anxiety and trouble breathing in the near immediate aftermath of smoking fentanyl just prior to arrival. She states she is feeling a bit anxious and nauseated but denies much in the way of other symptoms. She has no headache, runny nose or sore throat. She has had dry hacking cough but denies chest pain. She denies vomiting or diarrhea nor abdominal pain. She has no dysuria, frequency or urgency. She denies recent travel, prior blood clot, trauma or known cancer. Related Data Home Medications Medication Instructions Recorded Confirmed ipratropium 20 mcg-albuterol 100 1 puff INH BID 05/20/18 05/20/18 mcg/actuation mist for inhalation (Combivent Respimat) levothyroxine 25 mcg tablet 25 mcg PO DAILY 05/20/18 05/20/18 loratadine 10 mg tablet 10 mg PO QDAYP PRN Allergy Symptoms 05/20/18 05/20/18 promethazine 25 mg tablet 25 mg PO TIDP PRN Nausea And 05/20/18 05/20/18 Vomiting sumatriptan succinate 50 mg tablet 50 mg PO SEE INSTRUCTIONS PRN 05/20/18 05/20/18 (Imitrex) Migraine Headache Previous Rx's Medication Instructions Recorded gabapentin 300 mg capsule 900 mg PO QID #360 caps 11/20/17 (Neurontin) diltiazem HCl 240 mg 240 mg PO QDAY #30 caps 09/15/18 capsule,extended release 24 hr propranolol 20 mg tablet 20 mg PO BID #60 tabs 09/15/18 venlafaxine 75 mg tablet 75 mg PO BID #1 tab 10/12/18 citalopram 10 mg tablet 10 mg PO BID #60 tabs 12/15/18 dicyclomine 20 mg tablet 20 mg PO TID #90 tabs 12/15/18 lansoprazole 30 mg capsule,delayed 30 mg PO BID #60 caps 12/15/18 release levofloxacin 750 mg tablet 750 mg PO DAILY 7 days #7 tabs 09/13/22 ondansetron 4 mg disintegrating 4 mg PO QID PRN nausea and 09/13/22 tablet vomiting #20 tabs oseltamivir 75 mg capsule (Tamiflu) 75 mg PO BID 5 days #10 caps 09/13/22 Allergies Allergy/AdvReac Type Severity Reaction Status Date / Time amoxicillin [AMOXICILLIN] Allergy Unknown Verified 05/20/18 16:43 clindamycin [CLINDAMYCIN] Allergy Unknown Verified 05/20/18 16:43 doxycycline [DOXYCYCLINE] Allergy Unknown Verified 05/20/18 16:43 metronidazole [METRONIDAZOLE] Allergy Unknown rash Verified 05/20/18 16:43 Penicillins [PENICILLINS] Allergy Unknown Verified 05/20/18 16:43 trimethoprim [TRIMETHOPRIM] Allergy Unknown Verified 05/20/18 16:43 erythromycin base AdvReac Unknown Verified 05/20/18 16:43 [ERYTHROMYCIN BASE] IN CONTRAST Allergy Unknown iv contrast Uncoded 01/14/18 12:20 Review of Systems Review of Systems Narrative: GENERAL: See HPI HEENT: Denies sinus pain, ear pain, sore throat, difficulty swallowing, dizziness. RESPIRATORY: See HPI CARDIOVASCULAR: See HPI GASTROINTESTINAL: Denies nausea, vomiting, abdominal pain, diarrhea, constipation, melena. : Denies dysuria, frequency, incontinence, hematuria, urinary retention. MUSCULOSKELETAL: denies weakness, joint pain, or bony pain SKIN: Denies rash, skin lesions, or other NEUROLOGIC: Denies weakness, headache, numbness, change in speech, confusion, seizures, incoordination. PSYCHIATRIC: No concerning psychosocial issues. 12 point review of systems is negative except for those stated above Patient History Medical History (Updated 09/13/22 @ 05:15 by Suleman Navarrete DO) Abdominal wall pain Acquired hypothyroidism (05/15/11) Asthma (05/15/11) Chronic abdominal pain Chronic pain Chronic pain disorder Fibromyalgia Foot pain, left Migraine Overdose Postoperative pain of extremity Social History Smoking Status: Former smoker Smoking Status: Former smoker alcohol intake frequency: 0-2 drinks per day Substance Use Type: former substance user and painkillers Exam Narrative Exam Narrative: GENERAL: [56] year old patient appears stated age. Well-developed patient, in mild distress. HEAD: Atraumatic. Normocephalic. EYES: Pupils equal round and reactive. Extraocular motions intact. No scleral icterus. No injection or drainage. ENT: Nose without bleeding, purulent drainage. Throat without erythema, tonsillar hypertrophy or exudate. Airway patent. NECK: Trachea midline. Non tender CARDIOVASCULAR: Tachycardic but regular rhythm without murmurs, gallops, or rubs. RESPIRATORY: Clear to auscultation. Breath sounds equal bilaterally. No wheezes, rales, or rhonchi. GASTROINTESTINAL: Abdomen soft, non-tender, nondistended. EXTREMITIES: No edema or joint tenderness. BACK: Nontender without deformity or crepitance. No flank tenderness. NEURO: AOx3. SKIN: No rash or erythema of visible areas Initial Vital Signs Initial Vital Signs: Vital Signs Pulse Rate 125 H 09/13/22 00:07 Pulse Oximetry 96 09/13/22 00:07 Course Orders Ordered: ED Orders 09/13/22 00:04 Urine Drug Screen, Rapid Stat 09/13/22 00:11 Chest [XR chest 1V] Stat 09/13/22 00:24 Consult to [employer] - Electrotype Molder Stat 09/13/22 00:25 Covid-19 + FLU A/B + RSV - PCR Stat 09/13/22 00:42 Complete Blood Count AUTO DIFF Stat Comprehensive Metabolic Panel Stat D Dimer Stat NT-proBNP (BNP-Adult 18+) Stat 09/13/22 03:13 CT angio chest PE protocol Stat Famotidine (Famotidine 20 Mg/2 Ml Vial) 20 mg IV NOW THIAGO Last Admin: 09/13/22 02:32 Dose: 20 mg Documented By: BOLA Discontinued Medications Acetaminophen (Acetaminophen 325 Mg Tablet) 650 mg PO NOW ONE Stop: 09/13/22 01:56 Last Admin: 09/13/22 02:15 Dose: 650 mg Documented By: BOLA Diphenhydramine HCl (Diphenhydramine 50 Mg/Ml Vial) 25 mg IV NOW ONE Stop: 09/13/22 02:18 Last Admin: 09/13/22 02:32 Dose: 25 mg Documented By: BOLA Sodium Chloride (Normal Saline 0.9%) 1,000 mls @ 1,000 mls/hr IV BOLUS ONE Stop: 09/13/22 01:09 Last Infusion: 09/13/22 01:39 Dose: 0 mls/hr Documented By: Admin: 09/13/22 00:20 Dose: 1,000 mls/hr Documented By: BOLA Methylprednisolone (Methylprednisolone 125 Mg/2 Ml Vial) 125 mg IV NOW ONE Stop: 09/13/22 02:18 Last Admin: 09/13/22 02:32 Dose: 125 mg Documented By: BOLA Ondansetron HCl (Ondansetron 4 Mg/2 Ml Inj) 4 mg IV NOW ONE Stop: 09/13/22 00:11 Last Admin: 09/13/22 00:19 Dose: 4 mg Documented By: BOLA Pantoprazole Sodium (Pantoprazole 40 Mg Vial) 40 mg IV NOW ONE Stop: 09/13/22 00:11 Last Admin: 09/13/22 00:19 Dose: 40 mg Documented By: BOLA Potassium Chloride (Potassium Chloride 20 Meq Tab) 40 meq PO NOW ONE Stop: 09/13/22 01:33 Last Admin: 09/13/22 01:39 Dose: 40 meq Documented By: BOLA Vital Signs Vital signs: Vital Signs - 8 hr 09/13/22 00:15 09/13/22 00:07 09/13/22 00:09 Temperature 98.1 F Pulse Rate 124 H 125 H 127 H Respiratory Rate 18 Blood Pressure 134/77 Pulse Oximetry 97 96 96 Oxygen Delivery Method Room Air 09/13/22 00:09 09/13/22 00:30 09/13/22 00:44 Temperature Pulse Rate 124 H Respiratory Rate Blood Pressure 134/77 154/85 H Pulse Oximetry 95 Oxygen Delivery Method 09/13/22 00:44 09/13/22 00:45 09/13/22 01:00 Temperature Pulse Rate 133 H 123 H 126 H Respiratory Rate 24 Blood Pressure Pulse Oximetry 96 96 95 Oxygen Delivery Method 09/13/22 01:08 09/13/22 01:08 09/13/22 01:15 Temperature Pulse Rate 123 H 126 H Respiratory Rate 22 21 Blood Pressure 137/93 H Pulse Oximetry 96 96 Oxygen Delivery Method 09/13/22 01:30 09/13/22 01:45 09/13/22 02:02 Temperature Pulse Rate 125 H 125 H 121 H Respiratory Rate 28 H Blood Pressure Pulse Oximetry 95 96 Oxygen Delivery Method 09/13/22 02:15 09/13/22 02:21 09/13/22 02:21 Temperature Pulse Rate 124 H 116 H Respiratory Rate 27 H 42 H Blood Pressure 136/80 Pulse Oximetry Oxygen Delivery Method 09/13/22 02:30 09/13/22 02:45 09/13/22 03:00 Temperature Pulse Rate 118 H 120 H 120 H Respiratory Rate 28 H 27 H 26 H Blood Pressure Pulse Oximetry 96 Oxygen Delivery Method 09/13/22 03:15 09/13/22 05:13 09/13/22 05:13 Temperature Pulse Rate 116 H 105 H Respiratory Rate 28 H 24 Blood Pressure 131/78 158/90 H Pulse Oximetry 95 96 Oxygen Delivery Method MDM - Anxiety Lab Data Result diagrams: 09/13/22 00:42 09/13/22 00:42 Labs: Lab Results 09/13/22 09/13/22 09/13/22 Range/Units 00:04 00:25 00:42 WBC 4.7 (4.5-11.0) X10^3/uL RBC 4.51 (4.0-5.2) X10^6/uL Hgb 12.2 (12.0-16.0) g/dL Hct 36.7 (36-46) % MCV 81.3 (80-100) fL MCH 27.0 (26-34) PG MCHC 33.3 (30-36) % RDW 14.1 (11.6-14.8) % Plt Count 230 (150-400) X10^3/uL Neut % (Auto) 84.2 H (50-75) % Lymph % (Auto) 6.0 L (25-40) % [place] % (Auto) 9.7 (3-14) % Eos % (Auto) 0.0 L (2-4) % Baso % (Auto) 0.1 (0-2) % Neut # (Auto) 3900 (1206-1646) /uL Lymph # (Auto) 300 L (3043-5356) /uL [place] # (Auto) 500 (0-900) /uL Eos # (Auto) 0 (0-450) /uL Baso # (Auto) 0 (0-100) /uL D-Dimer (<500) ng/ml Sodium (137-145) mmol/L Potassium (3.4-5.1) mmol/L Chloride (98-107) mmol/L Carbon Dioxide (22-32) mmol/L BUN (7-17) mg/dL Creatinine (0.52-1.04) mg/dL Estimated GFR (>60) mL/min BUN/Creatinine Ratio (6-22) Glucose (70-100) mg/dL Calcium (8.4-10.2) mg/dL Total Bilirubin (0.2-1.3) mg/dL AST (14-36) IU/L ALT (<35) IU/L Alkaline Phosphatase (38-126) U/L NT-Pro-B Natriuret Pep (<125) pg/mL Total Protein (6.3-8.2) g/dL Albumin (3.5-5.0) g/dL Globulin (1.7-4.1) g/dL Albumin/Globulin Ratio (1.0-2.8) U Opiates 300ng/mL cut Negative (Negative) Ur Oxycodone Screen Negative (Negative) Urine Methadone Screen Negative (Negative) Ur Barbiturates Screen Negative (Negative) U Tricyclic Antidepress Negative (Negative) Ur Phencyclidine Scrn Negative (Negative) Ur Amphetamines Screen Negative (Negative) U Methamphetamines Scrn Positive H (Negative) Ur MDMA Scrn (Ecstasy) Negative (Negative) U Benzodiazepines Scrn Negative (Negative) Urine Cocaine Screen Negative (Negative) U Marijuana (THC) Screen Negative (Negative) SARS-CoV-2 (PCR) Negative (Negative) Influenza A (RT-PCR) Flu a positive H (NEGATIVE) Influenza B (RT-PCR) Flu b negative (NEGATIVE) RSV (PCR) Negative (Negative) 09/13/22 09/13/22 Range/Units 00:42 00:42 WBC (4.5-11.0) X10^3/uL RBC (4.0-5.2) X10^6/uL Hgb (12.0-16.0) g/dL Hct (36-46) % MCV (80-100) fL MCH (26-34) PG MCHC (30-36) % RDW (11.6-14.8) % Plt Count (150-400) X10^3/uL Neut % (Auto) (50-75) % Lymph % (Auto) (25-40) % [place] % (Auto) (3-14) % Eos % (Auto) (2-4) % Baso % (Auto) (0-2) % Neut # (Auto) (1429-9377) /uL Lymph # (Auto) (8029-8468) /uL [place] # (Auto) (0-900) /uL Eos # (Auto) (0-450) /uL Baso # (Auto) (0-100) /uL D-Dimer 1000 H (<500) ng/ml Sodium 141 (137-145) mmol/L Potassium 2.9 L (3.4-5.1) mmol/L Chloride 106 (98-107) mmol/L Carbon Dioxide 23 (22-32) mmol/L BUN 5 L (7-17) mg/dL Creatinine 0.54 (0.52-1.04) mg/dL Estimated GFR > 60 (>60) mL/min BUN/Creatinine Ratio 9.3 (6-22) Glucose 126 H (70-100) mg/dL Calcium 7.8 L (8.4-10.2) mg/dL Total Bilirubin 0.4 (0.2-1.3) mg/dL AST 23 (14-36) IU/L ALT 17 (<35) IU/L Alkaline Phosphatase 116 (38-126) U/L NT-Pro-B Natriuret Pep 1390 H (<125) pg/mL Total Protein 6.7 (6.3-8.2) g/dL Albumin 3.6 (3.5-5.0) g/dL Globulin 3.1 (1.7-4.1) g/dL Albumin/Globulin Ratio 1.2 (1.0-2.8) U Opiates 300ng/mL cut (Negative) Ur Oxycodone Screen (Negative) Urine Methadone Screen (Negative) Ur Barbiturates Screen (Negative) U Tricyclic Antidepress (Negative) Ur Phencyclidine Scrn (Negative) Ur Amphetamines Screen (Negative) U Methamphetamines Scrn (Negative) Ur MDMA Scrn (Ecstasy) (Negative) U Benzodiazepines Scrn (Negative) Urine Cocaine Screen (Negative) U Marijuana (THC) Screen (Negative) SARS-CoV-2 (PCR) (Negative) Influenza A (RT-PCR) (NEGATIVE) Influenza B (RT-PCR) (NEGATIVE) RSV (PCR) (Negative) Urine Dip Bedside Urine Glucose Negative Bedside Urine Bilirubin - Negative Bedside Urine Ketone - Negative Urine Specific [place] 1.000 Bedside Urine Occult Blood +/- Bedside Urine pH 6.5 Bedside Urine Protein - Negative Bedside Urine Urobilinogen - Negative Bedside Urine Nitrite - Negative Bedside Urine Leukocytes - Negative Esterase MDM Narrative Medical decision making narrative: 56-year-old female smoker, opioid abuse with history of chronic pain, migraines, prior overdoses, hypothyroid, depression and fibromyalgia presents by EMS with a chief complaint of shortness of breath Multiple etiologies for patient's symptoms considered including: [flu, COVID, PE, pneumonitis] Patient's symptoms improved over duration of stay with above-stated therapies. Findings and discharge diagnosis discussed with patient/family followed by verbalization of understanding Return precautions discussed with patient/family whom verbalize understanding. Discharge Plan Departure Patient Disposition: Home Clinical Impression: Flu, Pneumonia Activity Restrictions/Additional Instructions: *You have been diagnosed with [flu and pneumonia] *What to do: *Please continue to take your regular medications as directed. [x ] New medication prescriptions sent to your pharmacy: [ [facility]] [ ] New medication written as a paper prescription [ ] No new medications given *Please follow up with your primary care provider in 2-3 days, call for an appointment. Let them know you were seen in the Emergency Department and that we ask that you be seen in follow up. We will electronically transmit a record of today's note if your PCP is in our system *If you do not have a primary care provider please contact the [facility] Resource line at [phone]. They will ask some questions about your medical history and help get you set up with a doctor in the community. *Return to Emergency Department if you should have any new, worsening or concerning symptoms, such as [fever greater than 101 F, shaking chills, worsening pain, persistent vomiting or other bothersome symptoms] Prescriptions: New levofloxacin 750 mg tablet 750 mg PO DAILY 7 Days Qty: 7 0RF ondansetron 4 mg tablet,disintegrating 4 mg PO QID PRN (Reason: nausea and vomiting) Qty: 20 0RF oseltamivir [Tamiflu] 75 mg capsule 75 mg PO BID 5 Days Qty: 10 0RF No Action gabapentin [Neurontin] 300 MG capsule 900 mg PO QID Qty: 360 5RF propranolol 20 mg tablet 20 mg PO BID Qty: 60 0RF Rx Instructions: PT NEEDS TO EST CARE WITH NEW PCP BEFORE ANY MORE FILLS diltiazem HCl 240 mg capsule,extended release 24hr 240 mg PO QDAY Qty: 30 0RF Rx Instructions: PT NEEDS TO EST CARE WTIH NEW PCP BEFORE ANY MORE FILLS venlafaxine 75 mg tablet 75 mg PO BID Qty: 1 0RF Rx Instructions: DENIED. Needs to establish care citalopram 10 mg tablet 10 mg PO BID Qty: 60 0RF Rx Instructions: PATIENT NEEDS TO ESTABLISH WITH NEW PROVIDER lansoprazole 30 mg capsule,delayed release(DR/EC) 30 mg PO BID Qty: 60 0RF Rx Instructions: PATIENT NEEDS TO ESTABLISH CARE WITH NEW PROVIDER dicyclomine 20 mg tablet 20 mg PO TID Qty: 90 0RF levothyroxine 25 MCG tablet 25 mcg PO DAILY sumatriptan succinate [Imitrex] 50 MG tablet 50 mg PO SEE INSTRUCTIONS PRN (Reason: Migraine Headache) promethazine 25 MG tablet 25 mg PO TIDP PRN (Reason: Nausea And Vomiting) loratadine 10 MG tablet 10 mg PO QDAYP PRN (Reason: Allergy Symptoms) ipratropium-albuterol [Combivent Respimat] 4 GM mist 1 puff INH BID
[2022-09-13] MEDS: ACETAMINOPHEN 325 MG TABLET 650 MG PO (02:15)
[2022-09-13 02:27] LABS: D Dimer 1000 ng/ml (<500)
[2022-09-13] MEDS: FAMOTIDINE 20 MG/2 ML VIAL IV (02:32)
[2022-09-13] MEDS: methylPREDNISolone 125 MG/2 ML VIAL IV (02:32)
[2022-09-13] MEDS: diphenhydrAMINE 50 MG/ML VIAL 25 MG IV (02:32)
--- NOTE | 2022-09-13 03:13 | DI.CT.S_ITS ---
PROCEDURE: CT ANGIO CHEST PE PROTOCOL INDICATIONS: cough, tachycardia, SOB, critical Dimer TECHNIQUE: After the administration of intravenous contrast, 2 mm thick sections acquired from the pulmonary apices to the posterior costophrenic angles. 3-dimensional maximum intensity projection (MIP) coronal and sagittal reformats were then acquired through the thorax. For radiation dose reduction, the following was used: automated exposure control, adjustment of mA and/or kV according to patient size. COMPARISON: [facility], CT, CT ABDOMEN PELVIS WITH CONTRAST, 06/02/2020, 0:38. FINDINGS: Image quality: Excellent. Pulmonary arteries: Pulmonary arteries are normal in size, and demonstrate no intraluminal filling defects to suggest central pulmonary embolism. Lungs and pleura: Scattered small infiltrates are seen in bilateral lung cope with associated mild bronchiectasis most prominent in bilateral lower lung cope. No pleural effusions or pneumothorax. Central and peripheral airways are patent. Mediastinum: Heart size is normal, without pericardial effusion. Enlarged mediastinal lymph nodes are seen measures up to 1.2 cm in right paratracheal space and subcarinal space. No gross hilar lymphadenopathy by size criteria. Thoracic aorta is normal in caliber and enhancement. Esophagus is normal in caliber, without hiatal hernia. Bones and chest wall: No suspicious bony lesions. Ribs and thoracic spine appear intact throughout. Thyroid gland is within normal limits. No axillary or supraclavicular adenopathy. Abdomen: Visualized upper abdominal solid organs appear normal in the early arterial phase of enhancement. IMPRESSION: 1. No evidence of pulmonary emboli. No thoracic aortic aneurysm or dissection. 2. Small infiltrate/atelectasis scattered in bilateral mid to lower lung cope with associated mild bronchiectasis concerning for bronchopneumonia. Clinical and CT follow-up is recommended. No pleural effusion or pneumothorax. Airway is patent. 3. Enlarged lymph nodes seen in mediastinum concerning for reactive inflammatory nodes. No discrepancies. Dictated by: Eloy Almanzar M.D. on 09/13/2022 at 8:10 Approved by: Eloy Almanzar M.D. on 09/13/2022 at 8:19
[2022-09-13] MEDS: ONDANSETRON 4 MG ODT PREPACK 1 BOTTLE MISC (05:51)
== END 2022-09-13 05:35 | disposition home or self-care (01) ==
PROVIDERS: Emergency Provider Emergency Medicine
DX: J10.1 Influenza due to other identified influenza virus with other respiratory manifestations (principal); J18.9 Pneumonia, unspecified organism; Z87.891 Personal history of nicotine dependence
CPT/HCPCS: 0241U; 36415; 71045; 71275; 80053; 80305; 81003; 83880; 85025; 85379; 96374; 96375; 99284; C9113; J1200; J2405; J2930; Q9967

== ENCOUNTER → 2025-03-29 10:14 | Outpatient (CLI) | payer MEDICAID, SELFPAY ==
--- NOTE | 2025-03-29 10:37 | DI.CT.S_ITS ---
PROCEDURE: CT CHEST W CON INDICATIONS: PULMONARY NODULE TECHNIQUE: After the administration of intravenous contrast, 5 mm thick sections acquired from the pulmonary apices to the posterior costophrenic angles. 1 mm axial lung, 5 mm thick coronal and sagittal reformats and 7 mm axial MIP were acquired. For radiation dose reduction, the following was used: automated exposure control, adjustment of mA and/or kV according to patient size. COMPARISON: [facility], CT, CT ANGIO CHEST PE PROTOCOL, 09/13/2022, 3:19. FINDINGS: Image quality: Diagnostic. Lower Neck: No enlarged lymph nodes. Thyroid: No thyroid nodules which require sonographic follow up, per consensus guidelines. Axillae: No enlarged lymph nodes. Chest Wall: Unremarkable. Bones: Unremarkable. Lungs and Pleura: No pneumothorax or pleural effusions. There are small airway densities as well as centrilobular nodules seen in the right middle lobe and right lower lobe, also with mild bronchial wall thickening. No dominant focal lesion or consolidation seen. Heart: Heart size is normal. No pericardial effusion. Thoracic Vessels: The aorta and pulmonary arteries demonstrate normal size. Mediastinum and Naz: Stable appearance of ovoid soft tissue density in the right tracheoesophageal groove superiorly measuring 1.8 x 1.25 cm. Small nodes seen in the paratracheal region bilaterally, pericarinal and hilar regions appear improved compared to prior study. . Esophagus: No wall thickening. No hiatal hernia. Upper Abdomen: Visualized upper abdomen solid organs and bowel loops appear normal. IMPRESSION: 1. Airway and centrilobular densities in the right middle lobe and right lower lobe, are significantly improved compared to prior study. This may represent sequela of bronchopneumonia if there is no active symptomatology. 2. There has been also improvement of mediastinal apathy. There is a persistent soft tissue density in the tracheoesophageal groove superiorly which may represent also a parathyroid lesion. Dictated by: Jose Montes De Oca M.D. on 03/29/2025 at 15:08 Approved by: Jose Montes De Oca M.D. on 03/29/2025 at 15:15
== END ==
PROVIDERS: PCP Family Medicine; Referring Provider Family Medicine; Visit Provider Family Medicine
DX: R91.1 Solitary pulmonary nodule (principal)
CPT/HCPCS: 71260; Q9967

== ENCOUNTER 2025-07-24 07:22 | Inpatient (IN) | payer MEDICAID, SELFPAY ==
[2025-07-24] VITALS (92 sets, daily range): BP systolic 56–131; BP diastolic 37–84; PULSE 52–123; RESP 11–43; TEMP 36.6–37.3; O2SAT 89–100; BMI 24.4
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
--- NOTE | 2025-07-24 07:32 | ED_ITS ---
HPI - General Adult General Chief complaint: Fall Stated complaint: R Hand injury Time Seen by Provider: 07/24/25 07:24 Source: patient, EMS, RN notes reviewed and old records reviewed Mode of arrival: EMS Limitations: no limitations History of Present Illness HPI narrative: 59-year-old female smoker, history of opioid use uses fentanyl intermittently, migraines, hypothyroid, depression and fibromyalgia comes with complaint of injury to her right hand knee and ankle. Patient states she was washing some clothes and a large bowl pushed her hand into the bowl too hard injuring her hand and then fell backwards injuring her knee and ankle. Patient states she did not hit her head she denies any loss of consciousness, she denies headache neck or back pain, she denies chest pain or shortness of breath. No nausea or vomiting. She denies any GI or urinary symptoms. Main complaint is pain in her right hand she finds it painful to flex and extend. Patient notes some discomfort at her knee and ankle as well. Patient home medications include diltiazem dicyclomine, omeprazole. Multiple allergies to antibiotics. Does use tobacco daily denies regular alcohol use, notes intermittent fentanyl use denies any other recreational drugs. EMS noted blood pressure was low en route. Related Data Home Medications ?Medication ?Instructions ?Recorded ?Confirmed ipratropium 20 mcg-albuterol 100 1 puff INH BID 07/24/25 mcg/actuation mist for inhalation (Combivent Respimat) levothyroxine 25 mcg tablet 25 mcg PO DAILY 05/20/18 1 loratadine 10 mg tablet 10 mg PO QDAYP PRN Allergy S ymptoms 05/20/18 07/24/25 budesonide-formoterol HFA 160 2 puff inhalation BID 07/24/25 mcg-4.5 mcg/actuation aerosol inhaler montelukast 10 mg tablet 10 mg PO DAILY 07/24/2507/06 omeprazole 20 mg capsule,delayed 20 mg PO QAM 07/24/25 07/24/25 release Previous Rx's ?Medication ?Instructions ?Recorded gabapentin 300 mg capsule 900 mg (3 x 300 mg) PO QID # 360 11/20/17 (Neurontin) caps diltiazem HCl 240 mg 240 mg PO QDAY #30 caps 09/05 10/23 capsule,extended release 24 hr venlafaxine 75 mg tablet 75 mg PO BID #1 tab 10/12/18 dicyclomine 20 mg tablet 20 mg PO TID #90 tabs ondansetron 4 mg disintegrating 4 mg PO QID PRN nausea and 09/13/22 tablet vomiting #20 tabs Allergies Allergy/AdvReac Type Severity Reaction Status Date / Time amoxicillin (AMOXICILLIN) Allergy Unknown Verified 05/20/18 16:43 clindamycin (CLINDAMYCIN) Allergy Unknown Verified 05/20/18 16:43 doxycycline (DOXYCYCLINE) Allergy Unknown Verified 05/20/18 16:43 metronidazole (METRONIDAZOLE) Allergy Unknown rash Verified 05/20/18 16:43 Penicillins (PENICILLINS) Allergy Unknown Verified 05/20/18 16:43 trimethoprim (TRIMETHOPRIM) Allergy Unknown Verified 05/20/18 16:43 erythromycin base AdvReac Unknown Verified 05/20/18 16:43 (ERYTHROMYCIN BASE) IN CONTRAST Allergy Unknown iv contrast Uncoded 01/14/18 12:20 Review of Systems Review of Systems ROS Unobtainable: All systems reviewed & are unremarkable except as noted in HPI and below Patient History Medical History Acquired hypothyroidism (05/15/11) Asthma (05/15/11) Foot pain, left Postoperative pain of extremity Overdose Migraine Abdominal wall pain Chronic abdominal pain Fibromyalgia Chronic pain disorder Chronic pain Social History Smoking Status: Former smoker alcohol intake: former alcohol intake frequency: 0-2 drinks per day Exam Narrative Exam Narrative: GEN: Patient appears in mild distress. HEAD: No evidence of trauma, no raccoon/Ryan sign. NECK: Nontender, painless range of motion, trachea midline Negative Nexus criteria, no midline line tenderness, distracting injury, altered mental status, neuro deficit, recent EtOH. EYES: PERRLA, EOMI ENT: External inspection normal, trachea is midline, TM's are normal no hemotypanum, Nares are clear, no septal hematoma, no dental or oral injury, airway is normal and with normal occlusion, No bony tenderness RESP: Chest is nontender and has symmetric movement, no ecchymosis, breath sounds are normal no crackles, wheezes or rales CVS: Heart sounds are normal, no murmur noted, No JVD. ABG/GI: Nontender, soft, normal bowel sounds, no distention, no organomegaly, pelvic rock is negative NEURO: Oriented AOx3, neuro is grossly intact, sensation and motor is normal all 4 extremities moving, cranial nerves II through XII are intact, GCS is 15 PSYCH: Normal mood and affect SKIN: Intact, warm and dry, no crepitus and without decubitus BACK: No CVA tenderness, no vertebral tenderness, no step-off's, no crepitus EXT: Patient has swelling some erythema over the dorsum of her right hand she is tender over the 2nd and 3rd metacarpals. She can flex in it statin 3 majority of range of motion but is unsure comfortable with fully flexing or extending. She does have pain with any movement. Sensation is intact to light touch cap refills less than 2 seconds in all 5 fingers with 2+ radial pulse. Patient does have some tenderness over her right knee and ankle but no swelling warmth erythema or deformity, no ecchymosis. She has full range of motion. 2+ dorsalis pedis. Hips are nontender, no pedal edema, normal color and temperature, normal range of motion of extremities with normal tendon exam, 2+ pulses in all four extremities Initial Vital Signs Initial Vital Signs: Vital Signs Pulse Rate 52 L 07/24/25 07:26 Course Orders Ordered: ED Orders 07/24/25 10:57 Consult to Orthopedic Surgery Stat Acetaminophen (Acetaminophen 325 Mg Tablet) 650 mg PO Q6H PRN PRN Reason: Fever/Mild Pain (1-3) Last Admin: 07/24/25 16:37 Dose: 650 mg Documented By: ESV Citalopram Hydrobromide (Citalopram 10 Mg Tablet) 10 mg PO BID THIAGO Dicyclomine HCl (Dicyclomine 10 Mg Capsule) 20 mg PO TID THIAGO Diltiazem HCl (Diltiazem Cd 120 Mg Cap) 240 mg PO DAILY THIAGO Gabapentin (Gabapentin 300 Mg Capsule) 300 mg PO QID THIAGO Last Admin: 07/24/25 18:29 Dose: 300 mg Documented By: NIDIA Hydromorphone HCl (Hydromorphone Hcl 0.5 Mg/0.5 Ml Syringe) 0.5 mg IV Q2H PRN PRN Reason: Pain, Severe (7-10) Last Admin: 07/24/25 16:32 Dose: 0.5 mg Documented By: ESV Sodium Chloride (Normal Saline 0.9%) 1,000 mls @ 1,000 mls/hr IV BOLUS PRN PRN Reason: Fluid replacement Last Infusion: 07/24/25 08:08 Dose: Infused Documented By: Admin: 07/24/25 07:41 Dose: 1,000 mls/hr Documented By: SGF Sodium Chloride (Normal Saline 0.9%) 1,000 mls @ 250 mls/hr IV CONT THIAGO Last Infusion: 07/24/25 14:12 Dose: Infused Documented By: Admin: 07/24/25 09:20 Dose: 250 mls/hr Documented By: SGF Sodium Chloride (Normal Saline 0.9%) 1,000 mls @ 150 mls/hr IV CONT THIAGO Last Admin: 07/24/25 14:12 Dose: 150 mls/hr Documented By: SGF Sodium Chloride (Normal Saline 0.45%) 1,000 mls @ 100 mls/hr IV CONT THIAGO Last Admin: 07/24/25 16:35 Dose: 100 mls/hr Documented By: ESV Vancomycin HCl (Vancomycin) 1,000 mg in 200 mls @ 200 mls/hr IV Q24H [facility] Levothyroxine Sodium (Levothyroxine 25 Mcg Tablet) 25 mcg PO DAILY@0600 [facility] Naloxone HCl (Naloxone 0.4 Mg/Ml Vial) 0.2 mg IV Q2MIN PRN PRN Reason: Opiate Reversal Pantoprazole Sodium (Pantoprazole Dr 40 Mg Tablet) 40 mg PO BID [facility] Propranolol HCl (Propranolol 10 Mg Tablet) 20 mg PO BID [facility] Vancomycin HCl (Vancomycin Per Pharmacy) 1 request MISC NOW PRN PRN Reason: cellulitis Vancomycin HCl (Vancomycin Trough) 1 request [facility] [place]30 ONE Stop: 07/27/25 09:31 Venlafaxine HCl (Venlafaxine 37.5 Mg Tablet) 75 mg PO BID [facility] Discontinued Medications Hydrocodone Bitart/Acetaminophen (Hydrocodone/Acet 5/325 Tablet) 1 tab PO NOW ONE Stop: 07/24/25 07:40 Last Admin: 07/24/25 08:40 Dose: 1 tab Documented By: SGF Sodium Chloride (Normal Saline 0.9%) 1,000 mls @ 1,000 mls/hr IV BOLUS ONE Stop: 07/24/25 09:07 Last Infusion: 07/24/25 08:55 Dose: Infused Documented By: Admin: 07/24/25 08:13 Dose: 1,000 mls/hr Documented By: LASHAWNF Acetaminophen (Ofirmev) 1,000 mg in 100 mls @ 400 mls/hr IV NOW ONE Stop: 07/24/25 08:38 Last Infusion: 07/24/25 08:55 Dose: Infused Documented By: Admin: 07/24/25 08:28 Dose: 400 mls/hr Documented By: SGF Ceftriaxone Sodium 2,000 mg/ (Sodium Chloride) 100 mls @ 200 mls/hr IV NOW ONE Stop: 07/24/25 09:15 Last Infusion: 07/24/25 09:51 Dose: Infused Documented By: Admin: 07/24/25 09:21 Dose: 200 mls/hr Documented By: LASHAWNF Vancomycin HCl/Dextrose (Vancomycin) 1,500 mg in 300 mls @ 200 mls/hr IV NOW ONE Stop: 07/24/25 10:59 Last Infusion: 07/24/25 11:48 Dose: Infused Documented By: Admin: 07/24/25 10:02 Dose: 200 mls/hr Documented By: SHANELL Lorazepam (Lorazepam 2 Mg/Ml Inj) 1 mg IV NOW ONE Stop: 07/24/25 12:49 Last Admin: 07/24/25 12:56 Dose: 1 mg Documented By: SGF Ondansetron HCl (Ondansetron 4 Mg/2 Ml Inj) 4 mg IV NOW ONE Stop: 07/24/25 09:00 Last Admin: 07/24/25 09:03 Dose: 4 mg Documented By: SGF Pantoprazole Sodium (Pantoprazole 40 Mg Vial) 40 mg IV NOW ONE Stop: 07/24/25 09:00 Last Admin: 07/24/25 09:02 Dose: 40 mg Documented By: SGF Potassium Chloride (Potassium Chloride 20 Meq Tab) 40 meq PO NOW ONE Stop: 07/24/25 08:21 Last Admin: 07/24/25 08:28 Dose: 40 meq Documented By: SGF Potassium Chloride (Potassium Chloride 20 Meq Tab) 40 meq PO NOW ONE Stop: 07/24/25 16:00 Last Admin: 07/24/25 16:43 Dose: 40 meq Documented By: ESV Vital Signs Vital signs: Vital Signs - 8 hr 07/24/25 10:35 07/24/25 10:35 07/24/25 10:40 Pulse Rate 114 H 112 H Respiratory Rate 21 25 H Blood Pressure 93/63 Pulse Oximetry 100 99 07/24/25 10:40 07/24/25 10:45 07/24/25 10:45 Pulse Rate 106 H Respiratory Rate 26 H Blood Pressure 97/66 85/58 L Pulse Oximetry 98 07/24/25 10:50 07/24/25 10:50 07/24/25 10:55 Pulse Rate 109 H 106 H Respiratory Rate 23 23 Blood Pressure 83/59 L Pulse Oximetry 99 99 07/24/25 10:55 07/24/25 11:00 07/24/25 11:00 Pulse Rate 107 H Respiratory Rate 25 H Blood Pressure 82/59 L 88/61 L Pulse Oximetry 99 07/24/25 11:05 07/24/25 11:05 07/24/25 11:10 Pulse Rate 113 H 108 H Respiratory Rate 38 H 25 H Blood Pressure 82/55 L Pulse Oximetry 98 100 07/24/25 11:10 Pulse Rate Respiratory Rate Blood Pressure 95/60 Pulse Oximetry Medical Decision Making Lab Data 07/24/25 07:40 07/24/25 07:40 Labs: Lab Results 07/24/25 07/24/25 Range/Units 07:40 09:35 WBC 12.1 H (4.5-11.0) X10^3/uL RBC 3.95 L (4.0-5.2) X10^6/uL Hgb 10.5 L (12.0-16.0) g/dL Hct 31.8 L (36-46) % MCV 80.4 (80-100) fL MCH 26.6 (26-34) PG MCHC 33.1 (30-36) % RDW 14.7 (11.6-14.8) % Plt Count 200 (150-400) X10^3/uL Neut % (Auto) 87.9 H (50-75) % Lymph % (Auto) 7.2 L (25-40) % Webster % (Auto) 4.7 (3-14) % Eos % (Auto) 0.1 L (2-4) % Baso % (Auto) 0.1 (0-2) % Neut # (Auto) 50543 H (4803-9733) /uL Lymph # (Auto) 900 L (0191-8952) /uL Webster # (Auto) 600 (0-900) /uL Eos # (Auto) 0 (0-450) /uL Baso # (Auto) 0 (0-100) /uL Sodium 137 (137-145) mmol/L Potassium 3.1 L (3.4-5.1) mmol/L Chloride 103 (98-107) mmol/L Carbon Dioxide 25 (22-32) mmol/L BUN 25 H (7-17) mg/dL Creatinine 1.28 H (0.52-1.04) mg/dL Estimated GFR 48 L (>60) mL/min BUN/Creatinine Ratio 19.5 (6-22) Glucose 101 H (70-99) mg/dL Lactate 2.8 H 2.1 (0.7-2.1) mmol/L Calcium 8.0 L (8.4-10.2) mg/dL Total Bilirubin 1.1 (0.2-1.3) mg/dL AST 45 H (14-36) IU/L ALT 35 H (<35) IU/L Alkaline Phosphatase 154 H (38-126) U/L Total Creatine Kinase 66 (30-135) U/L Troponin I < 0.012 (0.01-0.034) ng/mL Total Protein 6.3 (6.3-8.2) g/dL Albumin 3.4 L (3.5-5.0) g/dL Globulin 2.9 (1.7-4.1) g/dL Albumin/Globulin Ratio 1.2 (1.0-2.8) Procalcitonin 2.39 H (<0.5) ng/mL Ethyl Alcohol < 10 (<10) mg/dL ECG Data Attestation: I personally reviewed and interpreted this ECG as follows: Interpretation: Sinus rhythm rate of 100 RI 118 QRS is 76 QTC 443, no acute ST-elevation or depression. No prior for comparison. MDM Narrative Medical decision making narrative: 59-year-old female with a complaint of right hand pain she does not appear to have injured it she reports a traumatic injury but is noted to be afebrile, tachycardic hypotensive here in the department. Patient had x-rays of her hand, ankle and knee because of her hypotension has a line placed, chest x-ray labs and fluids. Labs, white count of 12 hemoglobin of 10 priors were 12-13, platelets are 200. She has a 3.1 was replaced orally BUN 25 creatinine is 1.28, glucose is 101 lactate is 2.8, calcium is 8, AST is 45 ALT is 35 alk-phos is 154 bilirubin is 1.1 procalcitonin is 2.39, troponins less than 0.012. Sinus rhythm no acute ST-elevation or depression. Chest xray shows no acute cardiopulmonary abnormality Hand x-ray no acute osseous abnormality. Knee x-ray no acute bony abnormality or significant effusion. Patient does have swelling and erythema over the area she reports a traumatic injury but do have concern for potential infection she is tachycardic she has been hypotensive initially, no obvious cuts or lacerations but was started on IV antibiotics. Orthopedic surgery paged. Spoke with orthopedic surgery, Dr. Carcamo. He request MR if available, if not CT with contrast. Dr. Carcamo in the department and evaluated patient. Hospitalist, Dr. Fagan @ [phone] accepts for observation MR is currently planned for noon. MR unsuccessful due to patient movement despite having Ativan. Dr. Fagan asks for CT hand w/ contrast to be ordered. Discharge Plan Departure Patient Disposition: Admitted as Observation Clinical Impression: Cellulitis of hand, right, Sepsis, Opiate abuse, continuous Admit Date/Time: 07/24/25 11:11 Admit Provider: Chris Fagan V
--- NOTE | 2025-07-24 07:32 | DI.RAD.S_ITS ---
PROCEDURE: XR CHEST 1V INDICATIONS: injury hand/ankle/foot TECHNIQUE: One view of the chest was acquired. COMPARISON: [facility], CR, XR CHEST 1V, 09/13/2022, 0:20. FINDINGS: Surgical changes and devices: None. Lungs and pleura: Lungs are clear. No pleural effusions or pneumothorax. Mediastinum: Mediastinal contours appear normal. Heart size is normal. Bones and chest wall: No suspicious bony lesions. Overlying soft tissues appear unremarkable. IMPRESSION: No acute cardiopulmonary abnormality is seen. Approved by: Gwen Carrillo M.D.,Ph.D. on 07/24/2025 at 8:57
--- NOTE | 2025-07-24 07:33 | EKG_ITS ---
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
[2025-07-24] MEDS: SODIUM CHLORIDE 0.9% 1,000 ML 1000 ML IV ×2 (07:41→08:13)
[2025-07-24 07:52] LABS: Add Manual Diff / Slide Review NO; Hematocrit 31.8 % (36-46); Hemoglobin 10.5 g/dL (12.0-16.0); Lymphocytes Absolute Auto 900 /uL (1100-4500); Mean Corpuscular HGB Conc 33.1 % (30-36); Mean Corpuscular Hemoglobin 26.6 PG (26-34); Mean Corpuscular Volume 80.4 fL (80-100); Platelet Count 200 X10^3/uL (150-400)
[2025-07-24 08:03] LABS: Alanine Aminotransferase 35 IU/L (<35); Albumin 3.4 g/dL (3.5-5.0); Albumin Globulin Ratio 1.2 (1.0-2.8); Alkaline Phosphatase 154 U/L (38-126); Blood Urea Nitrogen 25 mg/dL (7-17); Calcium 8.0 mg/dL (8.4-10.2); Carbon Dioxide 25 mmol/L (22-32); Chloride 103 mmol/L (98-107); Creatine Kinase 66 U/L (30-135); Estimated Glomerular Filt Rate 48 mL/min (>60); Globulin 2.9 g/dL (1.7-4.1); Glucose 101 mg/dL (70-99); HEMOLYSIS < 15 (0-50); Potassium 3.1 mmol/L (3.4-5.1); Sodium 137 mmol/L (137-145); Total Protein 6.3 g/dL (6.3-8.2)
[2025-07-24 08:04] LABS: Ethanol (ETOH) < 10 mg/dL (<10); Lactate (Lactic Acid) 2.8 mmol/L (0.7-2.1)
[2025-07-24 08:16] LABS: Troponin I < 0.012 ng/mL (0.01-0.034)
[2025-07-24 08:20] LABS: Procalcitonin 2.39 ng/mL (<0.5)
[2025-07-24] MEDS: POTASSIUM CHLORIDE 20 MEQ TAB 40 MEQ PO ×2 (08:28→16:43)
[2025-07-24] MEDS: ACETAMINOPHEN IV 1,000 MG/100 ML VIAL 400 MG IV (08:28)
[2025-07-24] MEDS: PANTOPRAZOLE 40 MG VIAL IV (09:02)
[2025-07-24] MEDS: ONDANSETRON 4 MG/2 ML INJ IV ×2 (09:03→22:14)
[2025-07-24] MEDS: SODIUM CHLORIDE 0.9% 1,000 ML 250 ML IV (09:20)
[2025-07-24] MEDS: cefTRIAXone 2,000 MG in SODIUM CHLORIDE 0.9% 100 ML 200 MG IV (09:21)
[2025-07-24 09:23] LABS: Reflexed Lactate in 2 Hours Y
[2025-07-24 09:54] LABS: Lactate 2HR (Lactic Acid Rflx) 2.1 mmol/L (0.7-2.1)
[2025-07-24] MEDS: VANCOMYCIN 1,500 MG/300 ML PIGGYBACK 200 MG IV (10:02)
--- NOTE | 2025-07-24 12:34 | PC.NURSE ---
pt complaining of R ankle pain. States her pain feel like she broke her ankle. Provider aware. Pt informed that her BP is very low so we are trying to help her while keeping her safe as well
--- NOTE | 2025-07-24 13:29 | PC.NURSE ---
On phone with Dr. Fagan about patient not tolerating MRI. Reports he will come down to reassess during rounds
[2025-07-24] MEDS: SODIUM CHLORIDE 0.9% 1,000 ML 150 ML IV (14:12)
--- NOTE | 2025-07-24 14:41 | PM.CN.IH.1 ---
History of Present Illness Consult details Date Patient Seen: 07/24/25 Time Patient Seen: 09:55 Chief complaint: R Hand injury Reason for consult: Right hand swelling Requesting provider: Leslie Thompson Narrative: 59 year old female with right hand pain for about 24 hours since injury while doing some laundry. Reports some pain in the hand and limited finger motion. Also complaining of some right ankle pain as she had a fall. Meds Home Medications and Allergies Home Medications ?Medication ?Instructions ?Recorded ?Confirmed ?Type gabapentin 300 mg capsule 900 mg (3 x 300 mg) PO QID #360 11/20/17 07/24/25 Rx (Neurontin) caps ipratropium 20 mcg-albuterol 100 1 puff INH BID 05/20/18 07/24/25 History mcg/actuation mist for inhalation (Combivent Respimat) levothyroxine 25 mcg tablet 25 mcg PO DAILY 05/20/18 07/24/25 History loratadine 10 mg tablet 10 mg PO QDAYP PRN Allergy Symptoms 05/20/18 07/24/25 History diltiazem HCl 240 mg 240 mg PO QDAY #30 caps 09/15/18 07/24/25 Rx capsule,extended release 24 hr venlafaxine 75 mg tablet 75 mg PO BID #1 tab 10/12/18 07/24/25 Rx dicyclomine 20 mg tablet 20 mg PO TID #90 tabs 12/15/18 07/24/25 Rx ondansetron 4 mg disintegrating 4 mg PO QID PRN nausea and 09/13/22 07/24/25 Rx tablet vomiting #20 tabs budesonide-formoterol HFA 160 2 puff inhalation BID 07/24/25 07/24/25 History mcg-4.5 mcg/actuation aerosol inhaler montelukast 10 mg tablet 10 mg PO DAILY 07/24/25 07/24/25 History omeprazole 20 mg capsule,delayed 20 mg PO QAM 07/24/25 07/24/25 History release Allergies Allergy/AdvReac Type Severity Reaction Status Date / Time amoxicillin (AMOXICILLIN) Allergy Unknown Verified 05/20/18 16:43 clindamycin (CLINDAMYCIN) Allergy Unknown Verified 05/20/18 16:43 doxycycline (DOXYCYCLINE) Allergy Unknown Verified 05/20/18 16:43 metronidazole (METRONIDAZOLE) Allergy Unknown rash Verified 05/20/18 16:43 Penicillins (PENICILLINS) Allergy Unknown Verified 05/20/18 16:43 trimethoprim (TRIMETHOPRIM) Allergy Unknown Verified 05/20/18 16:43 erythromycin base AdvReac Unknown Verified 05/20/18 16:43 (ERYTHROMYCIN BASE) IN CONTRAST Allergy Unknown iv contrast Uncoded 01/14/18 12:20 Exam Vital Signs (past 8 hours): - 07/24/25 07:26 07/24/25 07:28 07/24/25 07:28 Temperature Pulse Rate 52 L 103 H Respiratory Rate Blood Pressure 76/49 L Pulse Oximetry 100 Oxygen Delivery Method 07/24/25 07:29 07/24/25 07:29 07/24/25 07:29 Temperature 97.8 F Pulse Rate 100 H 104 H Respiratory Rate 18 Blood Pressure 75/47 L 75/47 L Pulse Oximetry 99 100 Oxygen Delivery Method Room Air 07/24/25 07:30 07/24/25 07:30 07/24/25 07:38 Temperature Pulse Rate 102 H 103 H Respiratory Rate 19 Blood Pressure 67/44 L Pulse Oximetry 100 91 Oxygen Delivery Method 07/24/25 07:38 07/24/25 07:40 07/24/25 07:40 Temperature Pulse Rate 102 H Respiratory Rate 23 Blood Pressure 74/51 L 68/50 L Pulse Oximetry 99 Oxygen Delivery Method 07/24/25 07:45 07/24/25 07:45 07/24/25 07:47 Temperature Pulse Rate 99 H 101 H Respiratory Rate 23 29 H Blood Pressure 56/37 L Pulse Oximetry 99 100 Oxygen Delivery Method 07/24/25 07:47 07/24/25 07:51 07/24/25 07:51 Temperature Pulse Rate 99 H Respiratory Rate 32 H Blood Pressure 67/51 L 65/40 L Pulse Oximetry 98 Oxygen Delivery Method 07/24/25 07:55 07/24/25 07:55 07/24/25 08:00 Temperature Pulse Rate 97 H Respiratory Rate 24 Blood Pressure 66/46 L 78/51 L Pulse Oximetry 99 Oxygen Delivery Method 07/24/25 08:00 07/24/25 08:05 07/24/25 08:05 Temperature Pulse Rate 102 H 102 H Respiratory Rate 26 H 20 Blood Pressure 71/48 L Pulse Oximetry 100 99 Oxygen Delivery Method 07/24/25 08:06 07/24/25 08:06 07/24/25 08:10 Temperature Pulse Rate 101 H 101 H Respiratory Rate 23 23 Blood Pressure 71/51 L Pulse Oximetry 100 100 Oxygen Delivery Method 07/24/25 08:10 07/24/25 08:15 07/24/25 08:15 Temperature Pulse Rate 106 H Respiratory Rate 18 Blood Pressure 73/47 L 79/49 L Pulse Oximetry 100 Oxygen Delivery Method 07/24/25 08:20 07/24/25 08:20 07/24/25 08:25 Temperature Pulse Rate 107 H 102 H Respiratory Rate 22 23 Blood Pressure 74/51 L Pulse Oximetry 100 97 Oxygen Delivery Method 07/24/25 08:25 07/24/25 08:30 07/24/25 08:30 Temperature Pulse Rate 105 H Respiratory Rate 25 H Blood Pressure 76/50 L 83/57 L Pulse Oximetry 100 Oxygen Delivery Method 07/24/25 08:35 07/24/25 08:35 07/24/25 08:41 Temperature Pulse Rate 108 H 106 H Respiratory Rate 19 35 H Blood Pressure 92/66 Pulse Oximetry 100 100 Oxygen Delivery Method 07/24/25 08:41 07/24/25 08:45 07/24/25 08:45 Temperature Pulse Rate 105 H Respiratory Rate 23 Blood Pressure 93/51 L 66/45 L Pulse Oximetry 100 Oxygen Delivery Method 07/24/25 08:52 07/24/25 08:52 07/24/25 08:55 Temperature Pulse Rate 112 H 110 H Respiratory Rate 24 34 H Blood Pressure 89/63 L Pulse Oximetry 100 100 Oxygen Delivery Method 07/24/25 08:55 07/24/25 09:00 07/24/25 09:00 Temperature Pulse Rate 109 H Respiratory Rate 24 Blood Pressure 80/59 L 81/56 L Pulse Oximetry 98 Oxygen Delivery Method 07/24/25 09:06 07/24/25 09:06 07/24/25 09:10 Temperature Pulse Rate 115 H 119 H Respiratory Rate 28 H 21 Blood Pressure 87/64 L Pulse Oximetry 100 99 Oxygen Delivery Method 07/24/25 09:10 07/24/25 09:15 07/24/25 09:15 Temperature Pulse Rate 112 H Respiratory Rate 27 H Blood Pressure 102/66 81/61 L Pulse Oximetry 99 Oxygen Delivery Method 07/24/25 09:25 07/24/25 09:25 07/24/25 09:30 Temperature Pulse Rate 115 H 118 H Respiratory Rate 27 H 28 H Blood Pressure 90/63 Pulse Oximetry 99 97 Oxygen Delivery Method 07/24/25 09:42 07/24/25 09:42 07/24/25 09:45 Temperature Pulse Rate 116 H 114 H Respiratory Rate 16 11 L Blood Pressure 105/67 Pulse Oximetry 100 Oxygen Delivery Method 07/24/25 09:45 07/24/25 09:55 07/24/25 09:55 Temperature Pulse Rate 122 H Respiratory Rate 12 Blood Pressure 100/71 72/57 L Pulse Oximetry Oxygen Delivery Method 07/24/25 09:58 07/24/25 09:58 07/24/25 10:00 Temperature Pulse Rate 122 H 123 H Respiratory Rate 30 H 28 H Blood Pressure 92/69 Pulse Oximetry 98 100 Oxygen Delivery Method 07/24/25 10:02 07/24/25 10:02 07/24/25 10:10 Temperature Pulse Rate 120 H Respiratory Rate 28 H Blood Pressure 119/68 86/52 L Pulse Oximetry 100 Oxygen Delivery Method 07/24/25 10:10 07/24/25 10:15 07/24/25 10:15 Temperature Pulse Rate 116 H 115 H Respiratory Rate 24 27 H Blood Pressure 85/56 L Pulse Oximetry 99 100 Oxygen Delivery Method 07/24/25 10:20 07/24/25 10:20 07/24/25 10:25 Temperature Pulse Rate 111 H Respiratory Rate 25 H Blood Pressure 87/57 L 84/65 L Pulse Oximetry 100 Oxygen Delivery Method 07/24/25 10:25 07/24/25 10:30 07/24/25 10:30 Temperature Pulse Rate 114 H 115 H Respiratory Rate 34 H 27 H Blood Pressure 89/64 L Pulse Oximetry 100 100 Oxygen Delivery Method 07/24/25 10:35 07/24/25 10:35 07/24/25 10:40 Temperature Pulse Rate 114 H 112 H Respiratory Rate 21 25 H Blood Pressure 93/63 Pulse Oximetry 100 99 Oxygen Delivery Method 07/24/25 10:40 07/24/25 10:45 07/24/25 10:45 Temperature Pulse Rate 106 H Respiratory Rate 26 H Blood Pressure 97/66 85/58 L Pulse Oximetry 98 Oxygen Delivery Method 07/24/25 10:50 07/24/25 10:50 07/24/25 10:55 Temperature Pulse Rate 109 H 106 H Respiratory Rate 23 23 Blood Pressure 83/59 L Pulse Oximetry 99 99 Oxygen Delivery Method 07/24/25 10:55 07/24/25 11:00 07/24/25 11:00 Temperature Pulse Rate 107 H Respiratory Rate 25 H Blood Pressure 82/59 L 88/61 L Pulse Oximetry 99 Oxygen Delivery Method 07/24/25 11:05 07/24/25 11:05 07/24/25 11:10 Temperature Pulse Rate 113 H 108 H Respiratory Rate 38 H 25 H Blood Pressure 82/55 L Pulse Oximetry 98 100 Oxygen Delivery Method 07/24/25 11:10 07/24/25 11:15 07/24/25 11:15 Temperature Pulse Rate 108 H Respiratory Rate 24 Blood Pressure 95/60 86/57 L Pulse Oximetry 100 Oxygen Delivery Method 07/24/25 11:20 07/24/25 11:20 07/24/25 11:25 Temperature Pulse Rate 110 H 104 H Respiratory Rate 26 H 25 H Blood Pressure 78/58 L Pulse Oximetry 91 100 Oxygen Delivery Method 07/24/25 11:25 07/24/25 11:30 07/24/25 11:30 Temperature Pulse Rate 102 H Respiratory Rate 23 Blood Pressure 92/63 86/58 L Pulse Oximetry 99 Oxygen Delivery Method 07/24/25 11:35 07/24/25 11:35 07/24/25 11:40 Temperature Pulse Rate 107 H 108 H Respiratory Rate 24 26 H Blood Pressure 89/66 L Pulse Oximetry 99 100 Oxygen Delivery Method 07/24/25 11:40 07/24/25 11:45 07/24/25 11:45 Temperature Pulse Rate 108 H Respiratory Rate 41 H Blood Pressure 97/66 77/56 L Pulse Oximetry 96 Oxygen Delivery Method 07/24/25 11:50 07/24/25 11:50 07/24/25 11:51 Temperature Pulse Rate 108 H Respiratory Rate 24 Blood Pressure 77/51 L 84/51 L Pulse Oximetry 99 Oxygen Delivery Method 07/24/25 11:51 07/24/25 11:55 07/24/25 11:55 Temperature Pulse Rate 109 H 113 H Respiratory Rate 28 H 30 H Blood Pressure 87/62 L Pulse Oximetry 99 100 Oxygen Delivery Method 07/24/25 12:00 07/24/25 12:00 07/24/25 12:05 Temperature Pulse Rate 104 H Respiratory Rate 26 H Blood Pressure 83/54 L 85/53 L Pulse Oximetry 99 Oxygen Delivery Method 07/24/25 12:05 07/24/25 12:10 07/24/25 12:10 Temperature Pulse Rate 107 H 108 H Respiratory Rate 15 36 H Blood Pressure 83/55 L Pulse Oximetry 98 99 Oxygen Delivery Method 07/24/25 12:15 07/24/25 12:15 07/24/25 12:20 Temperature Pulse Rate 108 H 105 H Respiratory Rate 18 24 Blood Pressure 93/62 Pulse Oximetry 98 99 Oxygen Delivery Method 07/24/25 12:20 07/24/25 12:25 07/24/25 12:25 Temperature Pulse Rate 110 H Respiratory Rate 26 H Blood Pressure 90/66 92/64 Pulse Oximetry 99 Oxygen Delivery Method 07/24/25 12:30 07/24/25 12:30 07/24/25 12:35 Temperature 99.1 F Pulse Rate 118 H Respiratory Rate 23 Blood Pressure 91/67 95/66 Pulse Oximetry 99 Oxygen Delivery Method 07/24/25 12:35 07/24/25 12:40 07/24/25 12:40 Temperature Pulse Rate 116 H 109 H Respiratory Rate 15 19 Blood Pressure 87/60 L Pulse Oximetry 99 100 Oxygen Delivery Method 07/24/25 12:45 07/24/25 12:45 07/24/25 12:50 Temperature Pulse Rate 111 H Respiratory Rate 18 Blood Pressure 90/59 L 94/61 Pulse Oximetry 100 Oxygen Delivery Method 07/24/25 12:50 07/24/25 12:56 07/24/25 12:56 Temperature Pulse Rate 111 H 114 H Respiratory Rate 23 43 H Blood Pressure 91/64 Pulse Oximetry 99 99 Oxygen Delivery Method 07/24/25 13:00 07/24/25 13:00 07/24/25 13:05 Temperature Pulse Rate 110 H 110 H Respiratory Rate Blood Pressure 93/58 L Pulse Oximetry 99 99 Oxygen Delivery Method 07/24/25 13:05 07/24/25 13:07 07/24/25 13:07 Temperature Pulse Rate 109 H Respiratory Rate Blood Pressure 84/53 L 88/57 L Pulse Oximetry 98 Oxygen Delivery Method 07/24/25 13:24 07/24/25 13:24 07/24/25 13:25 Temperature Pulse Rate 106 H Respiratory Rate Blood Pressure 83/60 L 99/66 Pulse Oximetry 98 Oxygen Delivery Method 07/24/25 13:25 Temperature Pulse Rate 105 H Respiratory Rate Blood Pressure Pulse Oximetry 97 Oxygen Delivery Method Oxygen Delivery Method Room Air Narrative Exam Narrative: Right hand shows diffuse soft tissue swelling over the dorsum of the hand without focal fluctuance or wound. There is some mild tenderness. She has some limitation in range of motion of the digits as result of the swelling and pain. Distal sensation is intact to light touch throughout. Right ankle could not be adequately examined due to patient discomfort hand noncompliance with the exam. Objective Imaging Right hand films: My impression: Three views of the right hand performed July 24 2025 were personally assessed. There are no acute fractures, dislocations, or bony lytic or blastic lesions. Joint spaces are well-preserved. Right ankle films: My impression: Three views of the right ankle performed July 24, 2025 were personally assessed. There are no acute fractures, dislocations, or bony lytic or blastic lesions. Joint spaces are well preserved. There is evidence of some sequela from prior ankle sprains as they are couple ossicle seen at the medial malleolus on the AP view. CT scan hand: My impression: CT scan of the right hand performed July 24, 2025 is personally assessed. There are no acute fractures, dislocations, or bony lytic or blastic lesions. There is some diffuse soft tissue swelling of the dorsum of the hand without obvious abscess, fluid collection, or subcutaneous gas. Labs 07/24/25 07:40 07/24/25 07:40 Labs: Laboratory Results - last 24 hr 07/24/25 07/24/25 07:40 09:35 WBC 12.1 H RBC 3.95 L Hgb 10.5 L Hct 31.8 L MCV 80.4 MCH 26.6 MCHC 33.1 RDW 14.7 Plt Count 200 Neut % (Auto) 87.9 H Lymph % (Auto) 7.2 L [place] % (Auto) 4.7 Eos % (Auto) 0.1 L Baso % (Auto) 0.1 Neut # (Auto) 62199 H Lymph # (Auto) 900 L [place] # (Auto) 600 Eos # (Auto) 0 Baso # (Auto) 0 Sodium 137 Potassium 3.1 L Chloride 103 Carbon Dioxide 25 BUN 25 H Creatinine 1.28 H Estimated GFR 48 L BUN/Creatinine Ratio 19.5 Glucose 101 H Lactate 2.8 H 2.1 Calcium 8.0 L Total Bilirubin 1.1 AST 45 H ALT 35 H Alkaline Phosphatase 154 H Total Creatine Kinase 66 Troponin I < 0.012 Total Protein 6.3 Albumin 3.4 L Globulin 2.9 Albumin/Globulin Ratio 1.2 Procalcitonin 2.39 H Ethyl Alcohol < 10 PFSH Medical History Acquired hypothyroidism (05/15/11) Asthma (05/15/11) Foot pain, left Postoperative pain of extremity Overdose Migraine Abdominal wall pain Chronic abdominal pain Fibromyalgia Chronic pain disorder Chronic pain Tobacco & Substance Use Smoking Status: Current some day smoker Assessment & Plan Assessment & Plan narrative: 59-year-old female with soft tissue swelling over the right hand with trauma from yesterday without obvious evidence of fracture or convincing evidence of infection or abscess. Recommend conservative treat with analgesics, ice, and possibly consider antibiotic coverage just in the event that this may be cellulitis. We will continue to observe. As for the right ankle, x-rays do not show any clear evidence of a fracture. It is likely that she has sustained an ankle sprain. Recommend ambulation as tolerated with analgesics and possible therapy. May also consider cam walker boot if she is unable to tolerate weight-bearing without support once pain is under better control. Time-Based Coding :: [TOTAL MINUTES] spent with patient and on the chart (including review of chart, obtaining history, exam, reviewing outside data, placing orders, documenting exam and treatment plan, and counseling patient) on [DATE]. PROFEE Charge Codes Inpatient or Observation consultation: [id number]
--- NOTE | 2025-07-24 14:51 | DI.CT.S_ITS ---
PROCEDURE: CT UE RT W CON INDICATIONS: infection swelling TECHNIQUE: Helical axial CT of the wrist and distal forearm was obtained after intravenous contrast injection and reformatted in several planes COMPARISON: None. FINDINGS: Diffuse subcutaneous edema and soft tissue swelling is noted particularly over the dorsum of the wrist. No organized in capsulated fluid collection present to suggest focal abscess. Underlying osseous structures are appropriately mineralized without lytic lesion. Joint spaces are maintained. No marginal erosions IMPRESSION: Diffuse cellulitis without evidence of organized abscess or osseous erosion Approved by: Ciro Farrar M.D. on 07/24/2025 at 14:51
--- NOTE | 2025-07-24 15:40 | PM.HP.IH.1 ---
History of Present Illness History of Present Illness Date Patient Seen: 07/24/25 Time Patient Seen: 15:10 Chief complaint: R Hand injury Narrative: 59-year-old woman with chronic tobacco and active fentanyl use presented reporting an injury to her right hand, knee and ankle today. She states she was washing clothes in a basin hit her right hand against the back of level, falling backwards in hurting her knee and ankle. There was no head injury or loss of consciousness. She had been on Suboxone for opioid use disorder but stopped recently and started using inhaled fentanyl again. She denies IV drug use. Her last dose was at 1:00 a.m. this morning. She notes her right hand is swollen and painful with motion, as well as right knee and ankle, noting a right ankle is also swollen and hurts with movement and walking. She was noted to have a low blood pressure on route and was administered 2 L of normal saline. She is seen in the emergency department reporting ongoing pain. [facility] Medical History Abdominal wall pain Acquired hypothyroidism (05/15/11) Asthma (05/15/11) Chronic abdominal pain Chronic pain Chronic pain disorder Fibromyalgia Foot pain, left Migraine Overdose Postoperative pain of extremity Social History Smoking Status: Current some day smoker Meds Home Medications and Allergies Home Medications ?Medication ?Instructions ?Recorded ?Confirmed ?Type gabapentin 300 mg capsule 900 mg (3 x 300 mg) PO QID #360 11/20/17 05/20/18 Rx (Neurontin) caps ipratropium 20 mcg-albuterol 100 1 puff INH BID 05/20/18 05/20/18 History mcg/actuation mist for inhalation (Combivent Respimat) levothyroxine 25 mcg tablet 25 mcg PO DAILY 05/20/18 05/20/18 History loratadine 10 mg tablet 10 mg PO QDAYP PRN Allergy Symptoms 05/20/18 05/20/18 History promethazine 25 mg tablet 25 mg PO TIDP PRN Nausea And 05/20/18 05/20/18 History Vomiting sumatriptan succinate 50 mg tablet 50 mg PO SEE INSTRUCTIONS PRN 05/20/18 05/20/18 History (Imitrex) Migraine Headache diltiazem HCl 240 mg 240 mg PO QDAY #30 caps 09/15/18 Rx capsule,extended release 24 hr propranolol 20 mg tablet 20 mg PO BID #60 tabs 09/15/18 Rx venlafaxine 75 mg tablet 75 mg PO BID #1 tab 10/12/18 Rx citalopram 10 mg tablet 10 mg PO BID #60 tabs 12/15/18 Rx dicyclomine 20 mg tablet 20 mg PO TID #90 tabs 12/15/18 Rx lansoprazole 30 mg capsule,delayed 30 mg PO BID #60 caps 12/15/18 Rx release ondansetron 4 mg disintegrating 4 mg PO QID PRN nausea and 09/13/22 Rx tablet vomiting #20 tabs Allergies Allergy/AdvReac Type Severity Reaction Status Date / Time amoxicillin (AMOXICILLIN) Allergy Unknown Verified 05/20/18 16:43 clindamycin (CLINDAMYCIN) Allergy Unknown Verified 05/20/18 16:43 doxycycline (DOXYCYCLINE) Allergy Unknown Verified 05/20/18 16:43 metronidazole (METRONIDAZOLE) Allergy Unknown rash Verified 05/20/18 16:43 Penicillins (PENICILLINS) Allergy Unknown Verified 05/20/18 16:43 trimethoprim (TRIMETHOPRIM) Allergy Unknown Verified 05/20/18 16:43 erythromycin base AdvReac Unknown Verified 05/20/18 16:43 (ERYTHROMYCIN BASE) IN CONTRAST Allergy Unknown iv contrast Uncoded 01/14/18 12:20 Review of Systems Review of Systems ROS: Yes All systems reviewed with the patient and are negative except as otherwise documented Exam Vital Signs (past 8 hours): - 07/24/25 07:45 07/24/25 07:45 07/24/25 07:47 Temperature Pulse Rate 99 H 101 H Respiratory Rate 23 29 H Blood Pressure 56/37 L Pulse Oximetry 99 100 07/24/25 07:47 07/24/25 07:51 07/24/25 07:51 Temperature Pulse Rate 99 H Respiratory Rate 32 H Blood Pressure 67/51 L 65/40 L Pulse Oximetry 98 07/24/25 07:55 07/24/25 07:55 07/24/25 08:00 Temperature Pulse Rate 97 H Respiratory Rate 24 Blood Pressure 66/46 L 78/51 L Pulse Oximetry 99 07/24/25 08:00 07/24/25 08:05 07/24/25 08:05 Temperature Pulse Rate 102 H 102 H Respiratory Rate 26 H 20 Blood Pressure 71/48 L Pulse Oximetry 100 99 07/24/25 08:06 07/24/25 08:06 07/24/25 08:10 Temperature Pulse Rate 101 H 101 H Respiratory Rate 23 23 Blood Pressure 71/51 L Pulse Oximetry 100 100 07/24/25 08:10 07/24/25 08:15 07/24/25 08:15 Temperature Pulse Rate 106 H Respiratory Rate 18 Blood Pressure 73/47 L 79/49 L Pulse Oximetry 100 07/24/25 08:20 07/24/25 08:20 07/24/25 08:25 Temperature Pulse Rate 107 H 102 H Respiratory Rate 22 23 Blood Pressure 74/51 L Pulse Oximetry 100 97 07/24/25 08:25 07/24/25 08:30 07/24/25 08:30 Temperature Pulse Rate 105 H Respiratory Rate 25 H Blood Pressure 76/50 L 83/57 L Pulse Oximetry 100 07/24/25 08:35 07/24/25 08:35 07/24/25 08:41 Temperature Pulse Rate 108 H 106 H Respiratory Rate 19 35 H Blood Pressure 92/66 Pulse Oximetry 100 100 07/24/25 08:41 07/24/25 08:45 07/24/25 08:45 Temperature Pulse Rate 105 H Respiratory Rate 23 Blood Pressure 93/51 L 66/45 L Pulse Oximetry 100 07/24/25 08:52 07/24/25 08:52 07/24/25 08:55 Temperature Pulse Rate 112 H 110 H Respiratory Rate 24 34 H Blood Pressure 89/63 L Pulse Oximetry 100 100 07/24/25 08:55 07/24/25 09:00 07/24/25 09:00 Temperature Pulse Rate 109 H Respiratory Rate 24 Blood Pressure 80/59 L 81/56 L Pulse Oximetry 98 07/24/25 09:06 07/24/25 09:06 07/24/25 09:10 Temperature Pulse Rate 115 H 119 H Respiratory Rate 28 H 21 Blood Pressure 87/64 L Pulse Oximetry 100 99 07/24/25 09:10 07/24/25 09:15 07/24/25 09:15 Temperature Pulse Rate 112 H Respiratory Rate 27 H Blood Pressure 102/66 81/61 L Pulse Oximetry 99 07/24/25 09:25 07/24/25 09:25 07/24/25 09:30 Temperature Pulse Rate 115 H 118 H Respiratory Rate 27 H 28 H Blood Pressure 90/63 Pulse Oximetry 99 97 07/24/25 09:42 07/24/25 09:42 07/24/25 09:45 Temperature Pulse Rate 116 H 114 H Respiratory Rate 16 11 L Blood Pressure 105/67 Pulse Oximetry 100 07/24/25 09:45 07/24/25 09:55 07/24/25 09:55 Temperature Pulse Rate 122 H Respiratory Rate 12 Blood Pressure 100/71 72/57 L Pulse Oximetry 07/24/25 09:58 07/24/25 09:58 07/24/25 10:00 Temperature Pulse Rate 122 H 123 H Respiratory Rate 30 H 28 H Blood Pressure 92/69 Pulse Oximetry 98 100 07/24/25 10:02 07/24/25 10:02 07/24/25 10:10 Temperature Pulse Rate 120 H Respiratory Rate 28 H Blood Pressure 119/68 86/52 L Pulse Oximetry 100 07/24/25 10:10 07/24/25 10:15 07/24/25 10:15 Temperature Pulse Rate 116 H 115 H Respiratory Rate 24 27 H Blood Pressure 85/56 L Pulse Oximetry 99 100 07/24/25 10:20 07/24/25 10:20 07/24/25 10:25 Temperature Pulse Rate 111 H Respiratory Rate 25 H Blood Pressure 87/57 L 84/65 L Pulse Oximetry 100 07/24/25 10:25 07/24/25 10:30 07/24/25 10:30 Temperature Pulse Rate 114 H 115 H Respiratory Rate 34 H 27 H Blood Pressure 89/64 L Pulse Oximetry 100 100 07/24/25 10:35 07/24/25 10:35 07/24/25 10:40 Temperature Pulse Rate 114 H 112 H Respiratory Rate 21 25 H Blood Pressure 93/63 Pulse Oximetry 100 99 07/24/25 10:40 07/24/25 10:45 07/24/25 10:45 Temperature Pulse Rate 106 H Respiratory Rate 26 H Blood Pressure 97/66 85/58 L Pulse Oximetry 98 07/24/25 10:50 07/24/25 10:50 07/24/25 10:55 Temperature Pulse Rate 109 H 106 H Respiratory Rate 23 23 Blood Pressure 83/59 L Pulse Oximetry 99 99 07/24/25 10:55 07/24/25 11:00 07/24/25 11:00 Temperature Pulse Rate 107 H Respiratory Rate 25 H Blood Pressure 82/59 L 88/61 L Pulse Oximetry 99 07/24/25 11:05 07/24/25 11:05 07/24/25 11:10 Temperature Pulse Rate 113 H 108 H Respiratory Rate 38 H 25 H Blood Pressure 82/55 L Pulse Oximetry 98 100 07/24/25 11:10 07/24/25 11:15 07/24/25 11:15 Temperature Pulse Rate 108 H Respiratory Rate 24 Blood Pressure 95/60 86/57 L Pulse Oximetry 100 07/24/25 11:20 07/24/25 11:20 07/24/25 11:25 Temperature Pulse Rate 110 H 104 H Respiratory Rate 26 H 25 H Blood Pressure 78/58 L Pulse Oximetry 91 100 07/24/25 11:25 07/24/25 11:30 07/24/25 11:30 Temperature Pulse Rate 102 H Respiratory Rate 23 Blood Pressure 92/63 86/58 L Pulse Oximetry 99 07/24/25 11:35 07/24/25 11:35 07/24/25 11:40 Temperature Pulse Rate 107 H 108 H Respiratory Rate 24 26 H Blood Pressure 89/66 L Pulse Oximetry 99 100 07/24/25 11:40 07/24/25 11:45 07/24/25 11:45 Temperature Pulse Rate 108 H Respiratory Rate 41 H Blood Pressure 97/66 77/56 L Pulse Oximetry 96 07/24/25 11:50 07/24/25 11:50 07/24/25 11:51 Temperature Pulse Rate 108 H Respiratory Rate 24 Blood Pressure 77/51 L 84/51 L Pulse Oximetry 99 07/24/25 11:51 07/24/25 11:55 07/24/25 11:55 Temperature Pulse Rate 109 H 113 H Respiratory Rate 28 H 30 H Blood Pressure 87/62 L Pulse Oximetry 99 100 07/24/25 12:00 07/24/25 12:00 07/24/25 12:05 Temperature Pulse Rate 104 H Respiratory Rate 26 H Blood Pressure 83/54 L 85/53 L Pulse Oximetry 99 07/24/25 12:05 07/24/25 12:10 07/24/25 12:10 Temperature Pulse Rate 107 H 108 H Respiratory Rate 15 36 H Blood Pressure 83/55 L Pulse Oximetry 98 99 10/19/25 12:15 07/24/25 12:15 07/24/25 12:20 Temperature Pulse Rate 108 H 105 H Respiratory Rate 18 24 Blood Pressure 93/62 Pulse Oximetry 98 99 07/24/25 12:20 07/24/25 12:25 07/24/25 12:25 Temperature Pulse Rate 110 H Respiratory Rate 26 H Blood Pressure 90/66 92/64 Pulse Oximetry 99 07/24/25 12:30 07/24/25 12:30 07/24/25 12:35 Temperature 99.1 F Pulse Rate 118 H Respiratory Rate 23 Blood Pressure 91/67 95/66 Pulse Oximetry 99 07/24/25 12:35 07/24/25 12:40 07/24/25 12:40 Temperature Pulse Rate 116 H 109 H Respiratory Rate 15 19 Blood Pressure 87/60 L Pulse Oximetry 99 100 07/24/25 12:45 07/24/25 12:45 07/24/25 12:50 Temperature Pulse Rate 111 H Respiratory Rate 18 Blood Pressure 90/59 L 94/61 Pulse Oximetry 100 07/24/25 12:50 07/24/25 12:56 07/24/25 12:56 Temperature Pulse Rate 111 H 114 H Respiratory Rate 23 43 H Blood Pressure 91/64 Pulse Oximetry 99 99 07/24/25 13:00 07/24/25 13:00 07/24/25 13:05 Temperature Pulse Rate 110 H 110 H Respiratory Rate Blood Pressure 93/58 L Pulse Oximetry 99 99 07/24/25 13:05 07/24/25 13:07 07/24/25 13:07 Temperature Pulse Rate 109 H Respiratory Rate Blood Pressure 84/53 L 88/57 L Pulse Oximetry 98 07/24/25 13:24 07/24/25 13:24 07/24/25 13:25 Temperature Pulse Rate 106 H Respiratory Rate Blood Pressure 83/60 L 99/66 Pulse Oximetry 98 07/24/25 13:25 07/24/25 13:30 07/24/25 13:30 Temperature Pulse Rate 105 H 105 H Respiratory Rate Blood Pressure 93/63 Pulse Oximetry 97 98 07/24/25 13:35 07/24/25 13:35 07/24/25 13:52 Temperature Pulse Rate 108 H Respiratory Rate Blood Pressure 97/68 110/65 Pulse Oximetry 97 07/24/25 13:52 07/24/25 13:56 07/24/25 13:56 Temperature Pulse Rate 109 H 107 H Respiratory Rate Blood Pressure 95/70 Pulse Oximetry 96 97 07/24/25 14:00 07/24/25 14:01 07/24/25 14:01 Temperature Pulse Rate 111 H 112 H Respiratory Rate Blood Pressure 111/61 Pulse Oximetry 96 96 07/24/25 14:05 07/24/25 14:05 07/24/25 14:18 Temperature Pulse Rate 108 H Respiratory Rate Blood Pressure 104/56 L 97/54 L Pulse Oximetry 97 07/24/25 14:18 07/24/25 14:30 07/24/25 14:31 Temperature Pulse Rate 108 H 109 H Respiratory Rate Blood Pressure 94/62 Pulse Oximetry 97 97 07/24/25 14:31 07/24/25 14:45 07/24/25 14:45 Temperature Pulse Rate 108 H 110 H Respiratory Rate Blood Pressure 93/64 Pulse Oximetry 96 97 07/24/25 15:10 Temperature Pulse Rate 109 H Respiratory Rate Blood Pressure Pulse Oximetry 100 Oxygen Delivery Method Room Air Narrative Exam Narrative: GENERAL: This is a well-nourished, well-developed patient, appears fatigued, tearful. HEAD: Atraumatic. Normocephalic. No temporal or scalp tenderness. EYES: Pupils equal round and reactive. Extraocular motions intact. No scleral icterus. No injection or drainage. ENT: Mucous membranes pink and moist. NECK: Trachea midline. No JVD, bruits or lymphadenopathy. Supple, nontender, no meningeal signs. CARDIOVASCULAR: Regular rate and rhythm without murmurs, gallops, or rubs. RESPIRATORY: Clear to auscultation. GASTROINTESTINAL: Abdomen soft, non-tender, nondistended. EXTREMITIES: No clubbing, cyanosis, or edema. MUSCULOSKELETAL: Right hand is swollen, erythematous and tender, particularly over the thumb, index and middle fingers with swelling of the 1st through 3rd MTP joints; left ankle is also moderately warm, swollen and tender without erythema. NEUROLOGIC: Alert, oriented, speech fluent, full upper and lower motor strength, no focal deficits evident. DERMATOLOGIC: No rashes or skin lesions. Objective ECG Impression: Normal sinus rhythm at 100 beats per minute. Normal EKG. Imaging *: Radiologist's impression: 1. Right ankle x-ray: No acute bony abnormality or significant effusion. 2. Right hand x-ray: No acute osseous abnormality. 3. Right knee x-ray: No acute bony abnormality or significant effusion. 4. Chest x-ray: No acute cardiopulmonary abnormality is seen. 5. Right upper extremity CT: Diffuse cellulitis without evidence of organized abscess or osseous erosion Labs 07/24/25 07:40 07/24/25 07:40 Labs: Laboratory Results - last 24 hr 07/24/25 07/24/25 07:40 09:35 WBC 12.1 H RBC 3.95 L Hgb 10.5 L Hct 31.8 L MCV 80.4 MCH 26.6 MCHC 33.1 RDW 14.7 Plt Count 200 Neut % (Auto) 87.9 H Lymph % (Auto) 7.2 L Caswell % (Auto) 4.7 Eos % (Auto) 0.1 L Baso % (Auto) 0.1 Neut # (Auto) 03039 H Lymph # (Auto) 900 L Caswell # (Auto) 600 Eos # (Auto) 0 Baso # (Auto) 0 Sodium 137 Potassium 3.1 L Chloride 103 Carbon Dioxide 25 BUN 25 H Creatinine 1.28 H Estimated GFR 48 L BUN/Creatinine Ratio 19.5 Glucose 101 H Lactate 2.8 H 2.1 Calcium 8.0 L Total Bilirubin 1.1 AST 45 H ALT 35 H Alkaline Phosphatase 154 H Total Creatine Kinase 66 Troponin I < 0.012 Total Protein 6.3 Albumin 3.4 L Globulin 2.9 Albumin/Globulin Ratio 1.2 Procalcitonin 2.39 H Ethyl Alcohol < 10 Assessment & Plan Assessment & Plan narrative: 1. Right hand pain and swelling, likely due to cellulitis. Elevated procalcitonin noted consistent with infection. 2. Right ankle pain and swelling. Likely due to contusion. Check uric acid for possible gout possibility. 3. Opioid use disorder, with active use of inhaled fentanyl on the morning of admission. 4. Leukocytosis likely due to infection. 5. Volume depletion with acute kidney injury. 6. Elevated transaminases, likely reactive. 7. Hypokalemia. 8. Hypothyroidism. 9. Fibromyalgia. 10. GERD. 11. Depression. Plan: -admit to inpatient -IV antibiotics -follow cultures -follow serial exams -orthopedic consultation appreciated -hydrate intravenously, replete potassium -monitor renal function and electrolytes -continue routine home medications DVT prophylaxis: Low risk, SCDs Code status: Full code. Quality MIPS - Admit I confirm the patient?s Advance Care Plan is present, Code status is documented, Surrogate decision maker is in patient?s record [If Yes, STOP here]: Yes MIPS - Meds 'Current medications' to include all prescriptions, [id number] products, herbals, cannabis/cannabidiol products, and vitamin/mineral/dietary (nutritional) supplements. I have utilized all available resources to obtain, update, or review the patient?s current medications. [If Yes, STOP here]: Yes PROFEE Admissions Specialist Document charge(s): No Charge Codes Initial inpatient/observation care: 47178
[2025-07-24] MEDS: SODIUM CHLORIDE 0.45% 1,000 ML 100 ML IV (16:35)
[2025-07-24] MEDS: ACETAMINOPHEN 325 MG TABLET 650 MG PO ×2 (16:37→22:34)
[2025-07-24] MEDS: GABAPENTIN 300 MG CAPSULE PO ×2 (18:29→20:18)
--- NOTE | 2025-07-24 19:38 | PC.NURSE ---
Patient arrived to floor from ED at approximately 1600. She is A&OX4, BP slightly low, IVF 1/2 NS running at 100 ml/hr. Admission assessment completed. Patient medicated for pain. She is tearful c/o severe pain to R hand and R ankle.Both swollen with +3 edema. Bruising starting to form to R ankle. Patient sleeping this evening upon reassessment. Needing UA/UTOX still, endorsed to oncoming shift.
[2025-07-24] MEDS: PANTOPRAZOLE DR 40 MG TABLET PO (20:18)
[2025-07-24] MEDS: CITALOPRAM 10 MG TABLET PO (20:18)
[2025-07-24] MEDS: DICYCLOMINE 10 MG CAPSULE 20 MG PO (20:18)
[2025-07-24] MEDS: VENLAFAXINE 37.5 MG TABLET 75 MG PO (20:28)
[2025-07-24 21:44] LABS: Acinetobacter calcoa-baumannii Not Detected (Not Detect); Bacteroides fragilis Not Detected (Not Detect); Candida auris Not Detected (Not Detect); Candida glabrata Not Detected (Not Detect); Cryptococcus neoformans/gatti Not Detected (Not Detect); Enterobacterales Not Detected (Not Detect); Enterococcus faecalis Not Detected (Not Detect); Enterococcus faecium Not Detected (Not Detect); Klebsiella aerogenes Not Detected (Not Detect); Proteus species Not Detected (Not Detect); Serratia marcescens Not Detected (Not Detect); Staphylococcus epidermidis Not Detected (Not Detect); Staphylococcus lugdunensis Not Detected (Not Detect); Staphylococcus species Not Detected (Not Detect); Stenotrophomonas maltophilia Not Detected (Not Detect); Streptococcus agalactiae (Gr B Not Detected (Not Detect); Streptococcus pneumonia Not Detected (Not Detect); Streptococcus species Detected (Not Detect)
[2025-07-25] VITALS (13 sets, daily range): BP systolic 86–117; BP diastolic 50–78; PULSE 98–108; RESP 14–22; TEMP 35.9–37.1; O2SAT 90–107
[2025-07-25] MEDS: SODIUM CHLORIDE 0.45% 1,000 ML 100 ML IV ×2 (01:42→20:38)
[2025-07-25] MEDS: ACETAMINOPHEN 325 MG TABLET 650 MG PO ×2 (04:31→10:24)
[2025-07-25 05:45] LABS: Add Manual Diff / Slide Review NO; Hematocrit 30.8 % (36-46); Hemoglobin 10.2 g/dL (12.0-16.0); Lymphocytes Absolute Auto 600 /uL (1100-4500); Mean Corpuscular HGB Conc 33.1 % (30-36); Mean Corpuscular Hemoglobin 26.6 PG (26-34); Mean Corpuscular Volume 80.5 fL (80-100); Platelet Count 205 X10^3/uL (150-400)
[2025-07-25 06:12] LABS: Alanine Aminotransferase 30 IU/L (<35); Albumin 2.8 g/dL (3.5-5.0); Albumin Globulin Ratio 1.0 (1.0-2.8); Alkaline Phosphatase 124 U/L (38-126); Blood Urea Nitrogen 20 mg/dL (7-17); Calcium 7.7 mg/dL (8.4-10.2); Carbon Dioxide 18 mmol/L (22-32); Chloride 109 mmol/L (98-107); Estimated Glomerular Filt Rate > 60 mL/min (>60); Globulin 2.8 g/dL (1.7-4.1); Glucose 71 mg/dL (70-99); HEMOLYSIS < 15 (0-50); Potassium 4.0 mmol/L (3.4-5.1); Sodium 135 mmol/L (137-145); Total Protein 5.6 g/dL (6.3-8.2); Uric Acid 4.1 mg/dL (2.5-6.2)
[2025-07-25 06:41] LABS: Thyroid Stimulating Hormone 0.166 uIU/mL (0.47-4.68)
[2025-07-25 06:43] LABS: Appearance Urine UA CLEAR; Bilirubin Urine UA 1+ (NEGATIVE); Color Urine UA YELLOW; Glucose Urine UA NEGATIVE (Negative); Ketones Urine UA NEGATIVE (NEGATIVE); Leukocyte Esterase Urine UA NEGATIVE (NEGATIVE); Nitrite Urine UA NEGATIVE (Negative); Occult Blood Urine UA NEGATIVE (Negative); Protein Urine UA 2+ (Negative); Specific Gravity Urine UA 1.015 (1.000-1.035); Urobilinogen Urine UA 2.0 E.U./dL (0.2)
[2025-07-25 06:46] LABS: pH Urine UA 6.0 (4.5-8.0)
[2025-07-25 06:49] LABS: Ur Specific Gravity Normal (Normal)
[2025-07-25 06:50] LABS: Culture Indicated Urine Cult Not Indicated; Ictotest Urine Negative (Negative); UR Morphine/Opiate cutoff 300 Positive (Negative); Urine MDMA Negative (Negative); Urine Methamphetamines Positive (Negative); Urine Tetrahydrocannabinol Negative (Negative)
[2025-07-25 06:51] LABS: Urine Tricyclic Antidepressant Negative (Negative)
[2025-07-25] MEDS: CITALOPRAM 10 MG TABLET PO (08:10)
[2025-07-25] MEDS: LEVOTHYROXINE 25 MCG TABLET PO (08:10)
[2025-07-25] MEDS: GABAPENTIN 300 MG CAPSULE PO ×2 (08:11→12:58)
[2025-07-25] MEDS: DICYCLOMINE 10 MG CAPSULE 20 MG PO (08:11)
[2025-07-25] MEDS: PANTOPRAZOLE DR 40 MG TABLET PO (08:11)
--- NOTE | 2025-07-25 09:01 | DI.ECHO.S_ITS ---
[facility]---------+ [facility] : : [address] : : [place] : : [id number] : : Phone: [phone] Echocardiogram Report + + :Name: MONTRELL CARLTON Study Date: 07/26/2025 Height: 61 in : :Hospital ReadingLocation: Weight: 132 lb : : Gender: Female BSA: 1.6 m2 : :: 1965 Age: 59 yrs BP: 100/61 mmHg: :Reason For Study: INFECTIVE ENDOCARDITIS, SEPSIS : :Ordering Physician: SURI : :CALIN Performed By: Chemo Persaud : :Referring: CALIN MCCORD : + + Interpretation Summary The ejection fraction is estimated to be 50-55%. There are no focal wall motion abnormalities. There is a mild dyssynchronous contraction pattern, consistent with a conduction abnormality. Diastolic parameters suggest a relaxation abnormality of the left ventricle, consistent with probable normal filling pressures. The right ventricle is normal in size and function. The left atrium is mildly dilated. There is mild to moderate mitral regurgitation. There is no other significant valvular heart disease. The aortic root is normal size. Procedure: A two-dimensional transthoracic echocardiogram with color flow and Doppler was performed. The study quality was technically good. There is no prior echocardiogram noted for this patient. The patient was in normal sinus rhythm during the exam. Left Ventricle: The left ventricle is normal in size. There is normal left ventricular wall thickness. There is no ventricular septal defect visualized. The ejection fraction is estimated to be 50-55%. There are no focal wall motion abnormalities. There is a mild dyssynchronous contraction pattern, consistent with a conduction abnormality. Diastolic parameters suggest a relaxation abnormality of the left ventricle, consistent with probable normal filling pressures. Right Ventricle: The right ventricle is normal in size and function. Atria: The left atrium is mildly dilated. Right atrial size is normal. A prominent eustachian valve is noted. There is no Doppler evidence for an atrial septal defect. Mitral Valve: The mitral valve leaflets appear mildly thickened. There is mild to moderate mitral regurgitation. Aortic Valve: The aortic valve is trileaflet. The aortic valve is mildly calcified. The aortic valve opens well. No aortic regurgitation is present. Tricuspid Valve: The tricuspid valve leaflets are thin and pliable. There is trace tricuspid regurgitation. Pulmonic Valve: The pulmonic valve is not well visualized. There is no pulmonic valvular regurgitation. There is no other significant valvular heart disease. Great Vessels: The aortic root is normal size. The dimensions of the ascending aorta are normal. The pulmonary artery is normal size. The IVC is of normal diameter and collapses less than 50% with a sniff. This suggests a right atrial pressure of 8 mm Hg. Pericardium/ Pleura There is no pericardial effusion. There is no pleural effusion. MMode/2D Measurements & Calculations LVIDd: 5.5 cm LVOT diam: 2.1 cm LVIDs: 3.7 cm Ao root diam: 3.0 cm FS: 32.9 % asc Aorta Diam: 3.3 cm EPSS: 0.81 cm IVSd: 0.89 cm LVPWd: 1.1 cm LV guerrier. diameter/BSA (cm/m^2): 3.5 LV sys. diameter/BSA (cm/m^2): 2.3 LA A2 area: 18.1 cm2 RA long axis: 5.2 cm LA A4 area: 17.1 cm2 RA area: 13.4 cm2 LA length (vol): 5.0 cm RA vol: 29.6 ml LA vol: 52.4 ml RA : 18.7 ml/m2 LA vol index: 33.0 ml/m2 IVC diam: 1.8 cm RVD1 (basal): 3.0 cm RVD2 (mid): 2.5 cm TAPSE: 1.9 cm Doppler Measurements & Calculations Ao V2 max: 146.2 cm/sec LVOT Max Pasha: 73.1 cm/sec Ao V2 mean: 115.2 cm/sec LV V1 max P.1 mmHg Ao max P.5 mmHg LV V1 VTI: 19.8 cm Ao mean P.6 mmHg ARI(I,D): 2.1 cm2 Ao V2 VTI: 31.6 cm ARI(V,D): 1.7 cm2 sev ratio: 0.63 ARI indexed to BSA (cm^2/m^2): 1.3 MV E max pasha: 86.7 cm/sec TR max pasha: 230.4 cm/sec MV A max pasha: 111.6 cm/sec TR max P.2 mmHg MV E/A: 0.78 PA V2 max: 97.5 cm/sec Med Peak E' Pasha: 5.9 cm/sec PA V2 mean: 73.7 cm/sec E/E' med: 14.8 PA mean P.3 mmHg Lat Peak E' Pasha: 10.6 cm/sec PA pr(Accel): 43.0 mmHg E/E' lat: 8.2 E/e' average: 11.5 MV dec time: 0.18 sec SV(LVOT): 65.6 ml Reading Physician:08:50 AM
--- NOTE | 2025-07-25 09:36 | PM.PN.IH.1 ---
Subjective Subjective Date Patient Seen: 07/25/25 Time Patient Seen: 09:37 Interval history: Hospital day 2. For right hand infection. Continues to complain of pain in the right hand which seems to be worsening. She is also continuing to complain of pain in the right ankle. Exam Vital Signs (past 8 hours): - 07/25/25 03:00 07/25/25 07:00 Temperature 98.8 F 96.6 F L Pulse Rate 104 H 105 H Respiratory Rate 22 18 Blood Pressure 113/66 86/57 L Pulse Oximetry 96 98 Oxygen Flow Rate 0 Oxygen Delivery Method Room Air Oxygen Flow Rate 0 Narrative Exam Narrative: Right hand has diffuse swelling of the soft tissues of the hand more general now. She has limited flexion and extension of all digits, but primarily of the index finger. She has substantial pain with passive extension of the index finger along with tenderness along the volar aspect into the palm of the hand concerning for flexor tenosynovitis. Distal motor and sensory exam is intact. Right ankle demonstrates significant soft tissue swelling laterally along with tenderness. Distal motor and sensory exam is intact. Objective Labs 07/25/25 04:55 07/25/25 04:55 Labs: Laboratory Results - last 24 hr 07/24/25 07/24/25 07/25/25 08:37 09:35 04:55 WBC 22.6 H D RBC 3.82 L Hgb 10.2 L Hct 30.8 L MCV 80.5 MCH 26.6 MCHC 33.1 RDW 15.2 H Plt Count 205 Neut % (Auto) 95.4 H Lymph % (Auto) 2.4 L [place] % (Auto) 1.9 L Eos % (Auto) 0.1 L Baso % (Auto) 0.2 Neut # (Auto) 26332 H Lymph # (Auto) 600 L [place] # (Auto) 400 Eos # (Auto) 0 Baso # (Auto) 0 Sodium 135 L Potassium 4.0 Chloride 109 H Carbon Dioxide 18 L BUN 20 H Creatinine 0.94 Estimated GFR > 60 BUN/Creatinine Ratio 21.3 Glucose 71 Lactate 2.1 Uric Acid 4.1 Calcium 7.7 L Total Bilirubin 0.7 AST 38 H ALT 30 Alkaline Phosphatase 124 Total Protein 5.6 L Albumin 2.8 L Globulin 2.8 Albumin/Globulin Ratio 1.0 TSH 0.166 L Urine Color Urine Appearance Urine pH Ur Specific [place] Urine Protein Urine Glucose (UA) Urine Ketones Urine Occult Blood Urine Nitrate Urine Bilirubin Ur Bilirubin Confirm Urine Urobilinogen Ur Leukocyte Esterase Urine RBC Urine WBC Ur Squamous Epith Cells Urine Bacteria Ur Culture Indicated? Vol Urine Centrifuged U Opiates 300ng/mL cut Ur Oxycodone Screen Urine Methadone Screen Ur Barbiturates Screen U Tricyclic Antidepress Ur Phencyclidine Scrn Ur Amphetamines Screen U Methamphetamines Scrn Ur MDMA Scrn (Ecstasy) U Benzodiazepines Scrn Urine Cocaine Screen U Marijuana (THC) Screen Urine Specific [place] Ur Creatinine A.calcoaceticus-baumannii cmplx PCR Not detected Bacteroides fragilis Not detected Eva albicans (PCR) Not detected Eva auris (PCR) Not detected C. glabrata (PCR) Not detected C. krusei (PCR) Not detected C. parapsilosis (PCR) Not detected C. tropicalis (PCR) Not detected C. neoform/gattii (PCR) Not detected Enterobacterales (PCR) Not detected E. cloacae complex PCR Not detected Enterococc faecalis PCR Not detected Enterococc faecium PCR Not detected E. coli (PCR) Not detected H. influenzae (PCR) Not detected Klebsiella aerogenes (PCR) Not detected Klebsiella oxytoca PCR Not detected Klebsiella pneumoniae Not detected List. monocytogenes PCR Not detected N. meningitidis (PCR) Not detected Proteus species (PCR) Not detected Salmonella spp. (PCR) Not detected Serratia marcescens PCR Not detected Staphylococcus sp PCR Not detected Staph aureus (PCR) Not detected mecA/C & MREJ Resist Gene Not applicable mecA/C-Methicil Resis Gene Not applicable mcr-1 Colistin Res Gene PCR Not applicable Staph epidermidis (PCR) Not detected Staph lugdunensis PCR Not detected S. maltophilia (PCR) Not detected Streptococcus sp PCR Detected Group A Strep (PCR) Detected Strep agalactiae (PCR) Not detected Strep pneumoniae (PCR) Not detected P. aeruginosa (PCR) Not detected Estefanía/B-Vanco Res Genes Not applicable blaIMP Car res Gene PCR Not applicable KPC-Carbap Res Gene PCR Not applicable blaNDM Car Res Gene PCR Not applicable OXA-48 Carbapenem Resis Gene (PCR) Not applicable blaVIM Car Res Gene PCR Not applicable CTX-M Gene Resistance (PCR) Not applicable 07/25/25 07/25/25 06:15 06:15 WBC RBC Hgb Hct MCV MCH MCHC RDW Plt Count Neut % (Auto) Lymph % (Auto) [place] % (Auto) Eos % (Auto) Baso % (Auto) Neut # (Auto) Lymph # (Auto) [place] # (Auto) Eos # (Auto) Baso # (Auto) Sodium Potassium Chloride Carbon Dioxide BUN Creatinine Estimated GFR BUN/Creatinine Ratio Glucose Lactate Uric Acid Calcium Total Bilirubin AST ALT Alkaline Phosphatase Total Protein Albumin Globulin Albumin/Globulin Ratio TSH Urine Color Yellow Urine Appearance Clear Urine pH 6.0 Normal Ur Specific [place] 1.015 Urine Protein 2+ H Urine Glucose (UA) Negative Urine Ketones Negative Urine Occult Blood Negative Urine Nitrate Negative Urine Bilirubin 1+ H Ur Bilirubin Confirm Negative Urine Urobilinogen 2.0 H Ur Leukocyte Esterase Negative Urine RBC None seen Urine WBC None seen Ur Squamous Epith Cells 0-1 /hpf Urine Bacteria None seen Ur Culture Indicated? Cult not indicated Vol Urine Centrifuged 10ml (spun) U Opiates 300ng/mL cut Positive H Ur Oxycodone Screen Negative Urine Methadone Screen Negative Ur Barbiturates Screen Negative U Tricyclic Antidepress Negative Ur Phencyclidine Scrn Negative Ur Amphetamines Screen Positive H U Methamphetamines Scrn Positive H Ur MDMA Scrn (Ecstasy) Negative U Benzodiazepines Scrn Positive H Urine Cocaine Screen Negative U Marijuana (THC) Screen Negative Urine Specific [place] Normal Ur Creatinine Normal A.calcoaceticus-baumannii cmplx PCR Bacteroides fragilis Eva albicans (PCR) Eva auris (PCR) C. glabrata (PCR) C. krusei (PCR) C. parapsilosis (PCR) C. tropicalis (PCR) C. neoform/gattii (PCR) Enterobacterales (PCR) E. cloacae complex PCR Enterococc faecalis PCR Enterococc faecium PCR E. coli (PCR) H. influenzae (PCR) Klebsiella aerogenes (PCR) Klebsiella oxytoca PCR Klebsiella pneumoniae List. monocytogenes PCR N. meningitidis (PCR) Proteus species (PCR) Salmonella spp. (PCR) Serratia marcescens PCR Staphylococcus sp PCR Staph aureus (PCR) mecA/C & MREJ Resist Gene mecA/C-Methicil Resis Gene mcr-1 Colistin Res Gene PCR Staph epidermidis (PCR) Staph lugdunensis PCR S. maltophilia (PCR) Streptococcus sp PCR Group A Strep (PCR) Strep agalactiae (PCR) Strep pneumoniae (PCR) P. aeruginosa (PCR) Estefanía/B-Vanco Res Genes blaIMP Car res Gene PCR KPC-Carbap Res Gene PCR blaNDM Car Res Gene PCR OXA-48 Carbapenem Resis Gene (PCR) blaVIM Car Res Gene PCR CTX-M Gene Resistance (PCR) [facility] Medical History Acquired hypothyroidism (05/15/11) Asthma (05/15/11) Foot pain, left Postoperative pain of extremity Overdose Migraine Abdominal wall pain Chronic abdominal pain Fibromyalgia Chronic pain disorder Chronic pain Social History Smoking Status: Former smoker alcohol intake: former Assessment & Plan Assessment & Plan narrative: Patient's ankle films yesterday did not show any evidence of any acute fractures. She likely has an ankle sprain from twisting it recently. As for the hand, she shows clinical progression and now has more clinical evidence of probable flexor tenosynovitis of the index finger. Additionally, her white cell count has increased substantially and she has positive blood cultures for Gram-positive cocci. In light of this clinical presentation, I think it is best for us to move forward with surgical incision and drainage of the hand and index finger flexor sheath. Risks of surgery were discussed with her. These included, but were not limited to: Bleeding, infection, drug reactions, neurovascular injury, incomplete pain relief, stiffness, flexor tendon disruption, and . Patient voiced understanding acceptance of the risks. We will get her onto the OR schedule for this afternoon and she is to be NPO until that time. Time-Based Coding :: [TOTAL MINUTES] spent with patient and on the chart (including review of chart, obtaining history, exam, reviewing outside data, placing orders, documenting exam and treatment plan, and counseling patient) on [DATE]. PROFEE Dye Tank Tender Document charge(s): Yes Charge Codes Subsequent inpatient/observation care: 25370
[2025-07-25 10:15] LABS: Streptococcus pyogenes (Gr A) Detected (Not Detect)
[2025-07-25] MEDS: VENLAFAXINE 37.5 MG TABLET 75 MG PO (10:18)
[2025-07-25] MEDS: VANCOMYCIN 750 MG/150 ML PIGGYBACK 150 MG IV ×2 (10:22→22:07)
[2025-07-25] MEDS: cefTRIAXone 2,000 MG in SODIUM CHLORIDE 0.9% 100 ML 200 MG IV (13:00)
--- NOTE | 2025-07-25 15:40 | CM.DANOTE ---
Patient is a 59 yo female who was admitted OBS Status on 07/24/25 for Hand Cellulitis. Pt has MEDICAID for insurance and her PCP is Suleman Stone at [facility]. EMR was reviewed. Per MD pt with active fentanyl use after recent relapse as she was on Suboxone tx but denies IV use but smokes fentanyl. Pt with injury to hand and knee and cellulitis of the hand and Surgeon recommending OR for I&D today and currently on IV-Abx. Pt also to get Echo to rule out endocarditis. SW attempted to meet bedside with pt and RN and BEVERAGE HOST bedside getting pt ready to go down to the OR for I&D right now. Pt on commode and was unsteady with self care. Pt resides in [facility] likely with family. SW to follow for bedside assessment after I&D to determine discharge planning needs and confirm if she is still established at [facility] for ongoing CARRILLO tx. LANDON Joyner Discharge Planning/Care Management CM Discharge Assessment Start: 07/24/25 15:04 Freq: Status: Active Protocol: Document 07/25/25 15:38 BF (Rec: 07/25/25 15:40 BF [id number]) Discharge Planning Assessment Assigned Discharge LANDON Bragg Annealing Furnace Operator Provider Suleman Stone Insurance Medicaid DPOA/Assigned none Designee Name Advance Directives? No Advance Directives No on File History Provided By Patient,Medical Record Has Patient been No admitted in last 30 days? Prior Living House Arrangements Independent with ADL Yes 's Is patient alert and Yes oriented? Caregiver for No Another Barriers to Yes Discharge Comment Straight Medicaid, active fentanyl use Discharge Plan Home Transportation Family might be able to transport Arrangement Additional Comment Follow after I&D for needs, was already set up at [facility] clinic Whiteboard Updated Yes in Patient Room with name and ext. # of Hot Air Furnace Installer And Repairer Review Status In Process Please Provide Date 07/25/25 Initial DC Assessment Was Performed Next Review Type Continued Stay Review
--- NOTE | 2025-07-25 16:03 | P.PN_ITS ---
Subjective Subjective Date Patient Seen: 07/25/25 Interval history: Chief complaint: Left hand redness swelling and stiffness with cellulitis and suppurative tenosynovitis History of present illness: 07/24: 59-year-old woman with chronic tobacco and active fentanyl use presented reporting an injury to her right hand, knee and ankle today. She states she was washing clothes in a basin hit her right hand against the back of level, falling backwards in hurting her knee and ankle. There was no head injury or loss of consciousness. She had been on Suboxone for opioid use disorder but stopped recently and started using inhaled fentanyl again. She denies IV drug use. Her last dose was at 1:00 a.m. this morning. She notes her right hand is swollen and painful with motion, as well as right knee and ankle, noting a right ankle is also swollen and hurts with movement and walking. She was noted to have a low blood pressure on route and was administered 2 L of normal saline. She is seen in the emergency department reporting ongoing pain. Hospital course: 07/25: Increasing pain and swelling with night sweats with count escalated from 12-22 and worsening swelling of the hand patient has been taken to the OR for incision and drainage vancomycin increased and high-dose ceftriaxone given her 2nd dose supplemented by rifampin for tissue penetration Blood cultures 2/2 Gram-positive cocci Echocardiogram ordered to evaluate for infective endocarditis Review of systems: No chest pain or palpitations No nausea vomiting diarrhea No urinary symptoms No paresthesia no paresis Physical examination Chronically ill elderly female HEENT unremarkable (poor dentition) No subconjunctival hemorrhages Heart sounds 2/6 systolic murmur loud of the apex Lungs clear No splenomegaly Various tenderness swollen right upper extremity No [place]ay lesions or Osler's nodes Assessment and plan: Sepsis with Gram-positive cocci highly suspicious for Staph or Streptococcus given opiate use disorder significant risk for infective endocarditis and deep infection in addition to suppurative tenosynovitis * Open debridement in the operating room today with Orthopedic surgery * Repeat blood cultures tomorrow * Escalate vancomycin * Re-dose ceftriaxone * Add rifampin for tissue penetration and Synergy * Patient had urticaria and respiratory distress reaction to amoxicillin consider cefepime if ceftriaxone is not proven to be effective 2. Right ankle pain and swelling. Likely due to contusion. Check uric acid for possible gout possibility. 3. Opioid use disorder, with active use of inhaled fentanyl on the morning of admission. 4. Leukocytosis likely due to infection. 5. Volume depletion with acute kidney injury. 6. Elevated transaminases, likely reactive. 7. Hypokalemia. 8. Hypothyroidism. 9. Fibromyalgia. 10. GERD. 11. Depression. Disposition: * Inpatient into [facility] of 3 days of hospitalization further Code status: * Full code Time based billing: * 35 minutes were involved in evaluation of this patient including [id number] evaluation physical examination of the patient discussion with Orthopedic surgery review of imaging and objective laboratory findings discussion with pharmacy targeted antimicrobial therapy Exam Vital Signs (past 8 hours): - 07/25/25 12:00 Temperature 97 F L Pulse Rate 99 H Respiratory Rate 18 Blood Pressure 86/50 L Pulse Oximetry 100 Oxygen Delivery Method Room Air Oxygen Flow Rate 0 Objective Labs 07/25/25 04:55 07/25/25 04:55 Labs: Laboratory Results - last 24 hr 07/24/25 07/25/25 07/25/25 08:37 04:55 06:15 WBC 22.6 H D RBC 3.82 L Hgb 10.2 L Hct 30.8 L MCV 80.5 MCH 26.6 MCHC 33.1 RDW 15.2 H Plt Count 205 Neut % (Auto) 95.4 H Lymph % (Auto) 2.4 L [place] % (Auto) 1.9 L Eos % (Auto) 0.1 L Baso % (Auto) 0.2 Neut # (Auto) 32070 H Lymph # (Auto) 600 L [place] # (Auto) 400 Eos # (Auto) 0 Baso # (Auto) 0 Sodium 135 L Potassium 4.0 Chloride 109 H Carbon Dioxide 18 L BUN 20 H Creatinine 0.94 Estimated GFR > 60 BUN/Creatinine Ratio 21.3 Glucose 71 Uric Acid 4.1 Calcium 7.7 L Total Bilirubin 0.7 AST 38 H ALT 30 Alkaline Phosphatase 124 C-Reactive Protein 32.8 H Total Protein 5.6 L Albumin 2.8 L Globulin 2.8 Albumin/Globulin Ratio 1.0 TSH 0.166 L Urine Color Yellow Urine Appearance Clear Urine pH 6.0 Ur Specific [place] 1.015 Urine Protein 2+ H Urine Glucose (UA) Negative Urine Ketones Negative Urine Occult Blood Negative Urine Nitrate Negative Urine Bilirubin 1+ H Ur Bilirubin Confirm Negative Urine Urobilinogen 2.0 H Ur Leukocyte Esterase Negative Urine RBC None seen Urine WBC None seen Ur Squamous Epith Cells 0-1 /hpf Urine Bacteria None seen Ur Culture Indicated? Cult not indicated Vol Urine Centrifuged 10ml (spun) U Opiates 300ng/mL cut Positive H Ur Oxycodone Screen Negative Urine Methadone Screen Negative Ur Barbiturates Screen Negative U Tricyclic Antidepress Negative Ur Phencyclidine Scrn Negative Ur Amphetamines Screen Positive H U Methamphetamines Scrn Positive H Ur MDMA Scrn (Ecstasy) Negative U Benzodiazepines Scrn Positive H Urine Cocaine Screen Negative U Marijuana (THC) Screen Negative Urine Specific [place] Ur Creatinine A.calcoaceticus-baumannii cmplx PCR Not detected Bacteroides fragilis Not detected Eva albicans (PCR) Not detected Eva auris (PCR) Not detected C. glabrata (PCR) Not detected C. krusei (PCR) Not detected C. parapsilosis (PCR) Not detected C. tropicalis (PCR) Not detected C. neoform/gattii (PCR) Not detected Enterobacterales (PCR) Not detected E. cloacae complex PCR Not detected Enterococc faecalis PCR Not detected Enterococc faecium PCR Not detected E. coli (PCR) Not detected H. influenzae (PCR) Not detected Klebsiella aerogenes (PCR) Not detected Klebsiella oxytoca PCR Not detected Klebsiella pneumoniae Not detected List. monocytogenes PCR Not detected N. meningitidis (PCR) Not detected Proteus species (PCR) Not detected Salmonella spp. (PCR) Not detected Serratia marcescens PCR Not detected Staphylococcus sp PCR Not detected Staph aureus (PCR) Not detected mecA/C & MREJ Resist Gene Not applicable mecA/C-Methicil Resis Gene Not applicable mcr-1 Colistin Res Gene PCR Not applicable Staph epidermidis (PCR) Not detected Staph lugdunensis PCR Not detected S. maltophilia (PCR) Not detected Streptococcus sp PCR Detected Group A Strep (PCR) Detected Strep agalactiae (PCR) Not detected Strep pneumoniae (PCR) Not detected P. aeruginosa (PCR) Not detected Estefanía/B-Vanco Res Genes Not applicable blaIMP Car res Gene PCR Not applicable KPC-Carbap Res Gene PCR Not applicable blaNDM Car Res Gene PCR Not applicable OXA-48 Carbapenem Resis Gene (PCR) Not applicable blaVIM Car Res Gene PCR Not applicable CTX-M Gene Resistance (PCR) Not applicable 07/25/25 06:15 WBC RBC Hgb Hct MCV MCH MCHC RDW Plt Count Neut % (Auto) Lymph % (Auto) [place] % (Auto) Eos % (Auto) Baso % (Auto) Neut # (Auto) Lymph # (Auto) [place] # (Auto) Eos # (Auto) Baso # (Auto) Sodium Potassium Chloride Carbon Dioxide BUN Creatinine Estimated GFR BUN/Creatinine Ratio Glucose Uric Acid Calcium Total Bilirubin AST ALT Alkaline Phosphatase C-Reactive Protein Total Protein Albumin Globulin Albumin/Globulin Ratio TSH Urine Color Urine Appearance Urine pH Normal Ur Specific [place] Urine Protein Urine Glucose (UA) Urine Ketones Urine Occult Blood Urine Nitrate Urine Bilirubin Ur Bilirubin Confirm Urine Urobilinogen Ur Leukocyte Esterase Urine RBC Urine WBC Ur Squamous Epith Cells Urine Bacteria Ur Culture Indicated? Vol Urine Centrifuged U Opiates 300ng/mL cut Ur Oxycodone Screen Urine Methadone Screen Ur Barbiturates Screen U Tricyclic Antidepress Ur Phencyclidine Scrn Ur Amphetamines Screen U Methamphetamines Scrn Ur MDMA Scrn (Ecstasy) U Benzodiazepines Scrn Urine Cocaine Screen U Marijuana (THC) Screen Urine Specific [place] Normal Ur Creatinine Normal A.calcoaceticus-baumannii cmplx PCR Bacteroides fragilis Eva albicans (PCR) Eva auris (PCR) C. glabrata (PCR) C. krusei (PCR) C. parapsilosis (PCR) C. tropicalis (PCR) C. neoform/gattii (PCR) Enterobacterales (PCR) E. cloacae complex PCR Enterococc faecalis PCR Enterococc faecium PCR E. coli (PCR) H. influenzae (PCR) Klebsiella aerogenes (PCR) Klebsiella oxytoca PCR Klebsiella pneumoniae List. monocytogenes PCR N. meningitidis (PCR) Proteus species (PCR) Salmonella spp. (PCR) Serratia marcescens PCR Staphylococcus sp PCR Staph aureus (PCR) mecA/C & MREJ Resist Gene mecA/C-Methicil Resis Gene mcr-1 Colistin Res Gene PCR Staph epidermidis (PCR) Staph lugdunensis PCR S. maltophilia (PCR) Streptococcus sp PCR Group A Strep (PCR) Strep agalactiae (PCR) Strep pneumoniae (PCR) P. aeruginosa (PCR) Estefanía/B-Vanco Res Genes blaIMP Car res Gene PCR KPC-Carbap Res Gene PCR blaNDM Car Res Gene PCR OXA-48 Carbapenem Resis Gene (PCR) blaVIM Car Res Gene PCR CTX-M Gene Resistance (PCR) [facility] Medical History Acquired hypothyroidism (05/15/11) Asthma (05/15/11) Foot pain, left Postoperative pain of extremity Overdose Migraine Abdominal wall pain Chronic abdominal pain Fibromyalgia Chronic pain disorder Chronic pain Social History Smoking Status: Former smoker alcohol intake: former Assessment & Plan Time-Based Coding :: [TOTAL MINUTES] spent with patient and on the chart (including review of chart, obtaining history, exam, reviewing outside data, placing orders, documenting exam and treatment plan, and counseling patient) on [DATE].
[2025-07-25] MEDS: LACTATED RINGERS 1,000 ML 42 ML IV (16:39)
--- NOTE | 2025-07-25 18:16 | SUR.OPER ---
Addendum entered by eJssica Hodgson RN 07/25/25 18:43: EDIT: Supine on padded OR bed, head on pillow, left arm secured on padded arm board at <90 degree abduction, right arm resting on hand table, legs uncrossed, safety strap at abdomen. Original Note: Supine on padded OR bed, head on pillow, left arm secured on padded arm boards at <90 degrees abduction, legs uncrossed, safety belt at thigh, tape over blanket over lower legs.
[2025-07-25] MEDS: BUPivacaine 0.25% (PF) 10 ML VIAL INJ (18:56)
--- NOTE | 2025-07-25 19:36 | PM.OP.1 ---
Operative Date/Time/Diagnoses Date of procedure: 07/25/25 Time of procedure: 19:36 Pre-op diagnosis: Right index finger pyogenic flexor tenosynovitis Post-op diagnosis: same Procedure & Clinicians Procedure: Incision and drainage of right index finger tendon sheath Same procedure(s) as scheduled: Yes Indications: Right index finger pyogenic tenosynovitis (CPT - 65227) Surgeon: Mic Carcamo Assisted?: No Anesthesia Type: General Operative Notes Findings: Purulent material was found within the index finger tendon sheath Closure Type: non-primary Specimen(s): none sent Applied: none Estimated Blood Loss (mL): 1 Blood products transfused: none Tourniquet time (min): 42 Procedure in detail: Patient presented yesterday with signs and symptoms concerning for cellulitis of the right hand and developed worsening pain, flexed positioning of the index finger, pain with passive stretch, and tenderness along the flexor tendon into the palm consistent with acute pyogenic flexor tenosynovitis over the next 24 hours while on antibiotics. Diagnosis and management options were discussed with the patient and it was recommended that we proceed with incision and drainage of the index finger flexor tendon sheath. Risks of surgery were discussed today. These included, but were not limited to: Bleeding, infection, drug reactions, neurovascular injury, incomplete pain relief, stiffness, recurrent infection, tendon ruptures, and . Patient voiced understanding acceptance of the risks. She was seen in the preop holding area where the surgical site was marked. She was then taken to the operating room and placed on the operating table in supine position. General anesthesia was then induced and the airway was secured. Prior to making incision, the ultrasound machine was used to assess the hand for any areas of additional fluid collections that would suggest a different abscess. The flexor tendon sheath of the index finger was found to have a hypoechoic halo around it consistent with fluid which was asymmetric compared to the other digits. No other fluid collections were appreciated on ultrasound of the hand. A tourniquet was then placed around the proximal right arm. The arm was then prepped and draped in the usual sterile fashion. A palmar incision was made over the neck of the index finger metacarpal in line with the palmar flexion crease and soft tissue dissection was carried down to the flexor tendon sheath this was then sharply incised transversely taking great care to not injure the tendon. The tendon was visualized and treat the mobile without evidence of damage. A pediatric feeding tube was then threaded into the tendon sheath. A mid lateral incision was then made on the ulnar aspect of the index finger at the level of the DIPJ joint. The distal end of the tendon sheath was then entered using an Angiocath. Normal saline was then irrigated through the tendon sheath and was observed exiting the distal end. As this began, a thick somewhat turbid fluid was evacuated from the tendon sheath consistent with pus. The tendon sheath was then irrigated with a total of approximately 500 mL of normal saline. After this was complete, inspection of the tendon showed improved overall appearance. The distal mid lateral incision was closed with a 4-0 nylon suture. A single 4-0 nylon suture was placed in the palmar incision as well on 1 side but left open on the other to allow for continued drainage. The hand was then dressed with Xeroform over the distal incision, 4x4s and Webril followed by an Mario. General anesthesia was reversed successfully without complication patient was taken to the recovery room in stable condition. Patient had positive blood cultures for Gram-positive cocci. Cultures were not obtained at the time of the surgery. Complications: none Post-operative Condition: stable Disposition: PACU
--- NOTE | 2025-07-25 19:57 | PC.NURSE ---
patient made NPO at 0900 a.m. after breakfast for procedure for I&D of R hand. she complains of severe pain to R hand and R swollen ankle. She is not able to bear weight on RLE and is a stand pivot to [facility]. SHe is hypotensive this a.m. and Hospitalist notified, she denies feeling dizzy. Per MD orders she receives an order for 1 liter NS bolus. Just as bolus hung RN arrives from PACU to transport patient via surgical chair to PRE OP area. She is transported at approximately 1430
--- NOTE | 2025-07-25 20:03 | PC.NURSE ---
correction- patient transported to PACU at approximately 1540 this afternoon
[2025-07-26] MEDS: ACETAMINOPHEN 325 MG TABLET 650 MG PO (01:46)
[2025-07-26 01:50] VITALS: BP 100/61; PULSE 99; RESP 16; TEMP 36.6; O2SAT 99
[2025-07-26] MEDS: LEVOTHYROXINE 25 MCG TABLET PO (05:27)
[2025-07-26] MEDS: SODIUM CHLORIDE 0.45% 1,000 ML 100 ML IV ×3 (05:33→23:29)
--- NOTE | 2025-07-26 05:58 | P.PN_ITS ---
Subjective Subjective Date Patient Seen: 07/26/25 Time Patient Seen: 05:58 Interval history: Postop day 1. From incision and drainage of right index finger for pyogenic flexor tenosynovitis. She reports minimal discomfort in the finger this morning. Exam Vital Signs (past 8 hours): - 07/26/25 01:50 Temperature 97.9 F Pulse Rate 99 H Respiratory Rate 16 Blood Pressure 100/61 Pulse Oximetry 99 Fraction of Inspired Oxygen 24 SaO2/FiO2 Ratio 400 Oxygen Delivery Method Nasal Cannula Oxygen Flow Rate 1 Narrative Exam Narrative: Right hand dressings are clean, dry, and intact. She has minimal discomfort with passive motion of the distal phalanx of the index finger. Sensation is intact. Objective Labs 07/25/25 04:55 07/25/25 04:55 Labs: Laboratory Results - last 24 hr 07/24/25 07/25/25 07/25/25 08:37 04:55 06:15 Sodium 135 L Potassium 4.0 Chloride 109 H Carbon Dioxide 18 L BUN 20 H Creatinine 0.94 Estimated GFR > 60 BUN/Creatinine Ratio 21.3 Glucose 71 Uric Acid 4.1 Calcium 7.7 L Total Bilirubin 0.7 AST 38 H ALT 30 Alkaline Phosphatase 124 C-Reactive Protein 32.8 H Total Protein 5.6 L Albumin 2.8 L Globulin 2.8 Albumin/Globulin Ratio 1.0 TSH 0.166 L Urine Color Yellow Urine Appearance Clear Urine pH 6.0 Ur Specific [place] 1.015 Urine Protein 2+ H Urine Glucose (UA) Negative Urine Ketones Negative Urine Occult Blood Negative Urine Nitrate Negative Urine Bilirubin 1+ H Ur Bilirubin Confirm Negative Urine Urobilinogen 2.0 H Ur Leukocyte Esterase Negative Urine RBC None seen Urine WBC None seen Ur Squamous Epith Cells 0-1 /hpf Urine Bacteria None seen Ur Culture Indicated? Cult not indicated Vol Urine Centrifuged 10ml (spun) U Opiates 300ng/mL cut Positive H Ur Oxycodone Screen Negative Urine Methadone Screen Negative Ur Barbiturates Screen Negative U Tricyclic Antidepress Negative Ur Phencyclidine Scrn Negative Ur Amphetamines Screen Positive H U Methamphetamines Scrn Positive H Ur MDMA Scrn (Ecstasy) Negative U Benzodiazepines Scrn Positive H Urine Cocaine Screen Negative U Marijuana (THC) Screen Negative Urine Specific [place] Ur Creatinine A.calcoaceticus-baumannii cmplx PCR Not detected Bacteroides fragilis Not detected Eva albicans (PCR) Not detected Eva auris (PCR) Not detected C. glabrata (PCR) Not detected C. krusei (PCR) Not detected C. parapsilosis (PCR) Not detected C. tropicalis (PCR) Not detected C. neoform/gattii (PCR) Not detected Enterobacterales (PCR) Not detected E. cloacae complex PCR Not detected Enterococc faecalis PCR Not detected Enterococc faecium PCR Not detected E. coli (PCR) Not detected H. influenzae (PCR) Not detected Klebsiella aerogenes (PCR) Not detected Klebsiella oxytoca PCR Not detected Klebsiella pneumoniae Not detected List. monocytogenes PCR Not detected N. meningitidis (PCR) Not detected Proteus species (PCR) Not detected Salmonella spp. (PCR) Not detected Serratia marcescens PCR Not detected Staphylococcus sp PCR Not detected Staph aureus (PCR) Not detected mecA/C & MREJ Resist Gene Not applicable mecA/C-Methicil Resis Gene Not applicable mcr-1 Colistin Res Gene PCR Not applicable Staph epidermidis (PCR) Not detected Staph lugdunensis PCR Not detected S. maltophilia (PCR) Not detected Streptococcus sp PCR Detected Group A Strep (PCR) Detected Strep agalactiae (PCR) Not detected Strep pneumoniae (PCR) Not detected P. aeruginosa (PCR) Not detected Estefanía/B-Vanco Res Genes Not applicable blaIMP Car res Gene PCR Not applicable KPC-Carbap Res Gene PCR Not applicable blaNDM Car Res Gene PCR Not applicable OXA-48 Carbapenem Resis Gene (PCR) Not applicable blaVIM Car Res Gene PCR Not applicable CTX-M Gene Resistance (PCR) Not applicable 07/25/25 06:15 Sodium Potassium Chloride Carbon Dioxide BUN Creatinine Estimated GFR BUN/Creatinine Ratio Glucose Uric Acid Calcium Total Bilirubin AST ALT Alkaline Phosphatase C-Reactive Protein Total Protein Albumin Globulin Albumin/Globulin Ratio TSH Urine Color Urine Appearance Urine pH Normal Ur Specific [place] Urine Protein Urine Glucose (UA) Urine Ketones Urine Occult Blood Urine Nitrate Urine Bilirubin Ur Bilirubin Confirm Urine Urobilinogen Ur Leukocyte Esterase Urine RBC Urine WBC Ur Squamous Epith Cells Urine Bacteria Ur Culture Indicated? Vol Urine Centrifuged U Opiates 300ng/mL cut Ur Oxycodone Screen Urine Methadone Screen Ur Barbiturates Screen U Tricyclic Antidepress Ur Phencyclidine Scrn Ur Amphetamines Screen U Methamphetamines Scrn Ur MDMA Scrn (Ecstasy) U Benzodiazepines Scrn Urine Cocaine Screen U Marijuana (THC) Screen Urine Specific [place] Normal Ur Creatinine Normal A.calcoaceticus-baumannii cmplx PCR Bacteroides fragilis Eva albicans (PCR) Eva auris (PCR) C. glabrata (PCR) C. krusei (PCR) C. parapsilosis (PCR) C. tropicalis (PCR) C. neoform/gattii (PCR) Enterobacterales (PCR) E. cloacae complex PCR Enterococc faecalis PCR Enterococc faecium PCR E. coli (PCR) H. influenzae (PCR) Klebsiella aerogenes (PCR) Klebsiella oxytoca PCR Klebsiella pneumoniae List. monocytogenes PCR N. meningitidis (PCR) Proteus species (PCR) Salmonella spp. (PCR) Serratia marcescens PCR Staphylococcus sp PCR Staph aureus (PCR) mecA/C & MREJ Resist Gene mecA/C-Methicil Resis Gene mcr-1 Colistin Res Gene PCR Staph epidermidis (PCR) Staph lugdunensis PCR S. maltophilia (PCR) Streptococcus sp PCR Group A Strep (PCR) Strep agalactiae (PCR) Strep pneumoniae (PCR) P. aeruginosa (PCR) Estefanía/B-Vanco Res Genes blaIMP Car res Gene PCR KPC-Carbap Res Gene PCR blaNDM Car Res Gene PCR OXA-48 Carbapenem Resis Gene (PCR) blaVIM Car Res Gene PCR CTX-M Gene Resistance (PCR) [facility] Medical History Acquired hypothyroidism (05/15/11) Asthma (05/15/11) Foot pain, left Postoperative pain of extremity Overdose Migraine Abdominal wall pain Chronic abdominal pain Fibromyalgia Chronic pain disorder Chronic pain Social History Smoking Status: Former smoker alcohol intake: former Assessment & Plan Assessment & Plan narrative: Postop day 1. From incision and drainage of right index finger for pyogenic flexor tenosynovitis, improving. Recommend continue antibiotics focused on the sensitivities from her blood cultures. Continue to monitor her white count and CRP for evidence of improvement. Would recommend dressing changes beginning tomorrow for the hand. Given her complaints of right ankle pain, it may be beneficial for imaging the ankle with an MRI to ensure that there is no secondary infection in that location too. Time-Based Coding :: [TOTAL MINUTES] spent with patient and on the chart (including review of chart, obtaining history, exam, reviewing outside data, placing orders, documenting exam and treatment plan, and counseling patient) on [DATE]. 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
[2025-07-26 07:00] LABS: Add Manual Diff / Slide Review NO; Hematocrit 32.2 % (36-46); Hemoglobin 10.5 g/dL (12.0-16.0); Lymphocytes Absolute Auto 600 /uL (1100-4500); Mean Corpuscular HGB Conc 32.6 % (30-36); Mean Corpuscular Hemoglobin 26.2 PG (26-34); Mean Corpuscular Volume 80.4 fL (80-100); Platelet Count 239 X10^3/uL (150-400)
[2025-07-26 09:00] VITALS: BP 104/56; PULSE 104; RESP 16; TEMP 36.4; O2SAT 98
[2025-07-26] MEDS: VENLAFAXINE 37.5 MG TABLET 75 MG PO ×2 (10:13→20:51)
[2025-07-26] MEDS: PANTOPRAZOLE DR 40 MG TABLET PO ×2 (10:14→20:51)
[2025-07-26] MEDS: GABAPENTIN 300 MG CAPSULE PO ×4 (10:14→20:51)
[2025-07-26] MEDS: PROPRANOLOL 10 MG TABLET 20 MG PO (10:15)
[2025-07-26] MEDS: CITALOPRAM 10 MG TABLET PO ×2 (10:15→20:51)
[2025-07-26] MEDS: DICYCLOMINE 10 MG CAPSULE 20 MG PO ×3 (10:15→20:51)
[2025-07-26] MEDS: VANCOMYCIN 750 MG/150 ML PIGGYBACK 150 MG IV (10:19)
--- NOTE | 2025-07-26 11:15 | CM.DPNOTE ---
DCP Continued: Reviewed EMR and team rounds for pt?s medical status. Per hospitalist, pt will have increased IV antibiotics and Ortho is consulting; ruling out endocarditis. Per Ortho, monitoring pt ankle pain and will have an MRI today. Plan: Anticipating dc home with family when medically cleared; already established with [facility]. CM Team will continue to follow for coordination of discharge plans. TREY Okeefe
[2025-07-26 11:49] VITALS: BP 85/53; PULSE 94; RESP 20; TEMP 36.1; O2SAT 98
[2025-07-26] MEDS: cefTRIAXone 2,000 MG in SODIUM CHLORIDE 0.9% 100 ML 200 MG IV (12:17)
--- NOTE | 2025-07-26 12:41 | DI.MRI.S_ITS ---
PROCEDURE: MR FOOT RT WO CON INDICATIONS: Suspected cellulitis/septic joint of right foot TECHNIQUE: Multiphasic, multisequence MRI of the forefoot was performed, without intravenous contrast administration. COMPARISON: None. FINDINGS: Image quality: Adequate. Focal susceptibility artifact at the tuft of the great toe. Bones: No fracture. No bone marrow edema. Joints: No effusion. Plantar plates are intact. Tendons: No tendon tear. No tenosynovitis. Plantar fascia: Unremarkable. Other soft tissue: Extensive subcutaneous edema. No discrete fluid collection. No interdigital neuroma. IMPRESSION: Nonspecific subcutaneous edema which could represent cellulitis in the clinical setting of infection. No evidence of abscess or osteomyelitis. Focal susceptibility artifact at the tip of the great toe could represent small metallic foreign body. Correlation with plain film recommended. Dictated by: Byron Henderson M.D. on 07/26/2025 at 15:17 Approved by: Byron Henderson M.D. on 07/26/2025 at 15:21
--- NOTE | 2025-07-26 12:53 | P.PN_ITS ---
Subjective Subjective Date Patient Seen: 07/26/25 Interval history: Chief complaint: Left hand redness swelling and stiffness with cellulitis and suppurative tenosynovitis History of present illness: 07/24: 59-year-old woman with chronic tobacco and active fentanyl use presented reporting an injury to her right hand, knee and ankle today. She states she was washing clothes in a basin hit her right hand against the back of level, falling backwards in hurting her knee and ankle. There was no head injury or loss of consciousness. She had been on Suboxone for opioid use disorder but stopped recently and started using inhaled fentanyl again. She denies IV drug use. Her last dose was at 1:00 a.m. this morning. She notes her right hand is swollen and painful with motion, as well as right knee and ankle, noting a right ankle is also swollen and hurts with movement and walking. She was noted to have a low blood pressure on route and was administered 2 L of normal saline. She is seen in the emergency department reporting ongoing pain. Hospital course: 07/25: Increasing pain and swelling with night sweats with count escalated from 12-22 and worsening swelling of the hand patient has been taken to the OR for incision and drainage vancomycin increased and high-dose ceftriaxone given her 2nd dose supplemented by rifampin for tissue penetration Excerpt from operative report: Procedure: Incision and drainage of right index finger tendon sheath Same procedure(s) as scheduled: Yes Indications: Right index finger pyogenic tenosynovitis (CPT - 93498) Surgeon: Mic Carcamo Assisted?: No Anesthesia Type: General Operative Notes Findings: Purulent material was found within the index finger tendon sheath Closure Type: non-primary The distal end of the tendon sheath was then entered using an Angiocath. Normal saline was then irrigated through the tendon sheath and was observed exiting the distal end. As this began, a thick somewhat turbid fluid was evacuated from the tendon sheath consistent with pus. The tendon sheath was then irrigated with a total of approximately 500 mL of normal saline. After this was complete, inspection of the tendon showed improved overall appearance. The distal mid lateral incision was closed with a 4-0 nylon suture. A single 4-0 nylon suture was placed in the palmar incision as well on 1 side but left open on the other to allow for continued drainage. The hand was then dressed with Xeroform over the distal incision, 4x4s and Webril followed by an Mario. 07/26: 2/2 blood cultures positive for strep pyogenes no fever or chills overnight TTE negative for infective endocarditis continuing to have pain and swelling at right hand and right foot we will repeat blood culture today vancomycin was discontinued per pharmacy management but continuing with ceftriaxone and rifampin. White count and CRP are still escalating which is of concern Blood cultures / 1. Strep pyogenes (grp a) M.I.C. RX --------- --- * Ampicillin <=0.25 S * Vancomycin 0.25 S * Cefotaxime <=0.12 S * Ceftriaxone <=0.12 S * Clindamycin R * Levofloxacin 0.5 S * Linezolid <=2 S * Penicillin <=0.06 S * Tetracycline R Echocardiogram ordered to evaluate for infective endocarditis appears negative: The ejection fraction is estimated to be 50-55%. There are no focal wall motion abnormalities. There is a mild dyssynchronous contraction pattern, consistent with a conduction abnormality. Diastolic parameters suggest a relaxation abnormality of the left ventricle, consistent with probable normal filling pressures. The right ventricle is normal in size and function. The left atrium is mildly dilated. There is mild to moderate mitral regurgitation. There is no other significant valvular heart disease. The aortic root is normal size. There is no obvious valvular vegetation identified on this exam. Consider VEL if there is a high degree of clinical suspicion for endocarditis and clinically appropriate. MRI of the ankle shows no osteomyelitis or deep infection: IMPRESSION: Nonspecific subcutaneous edema which could represent cellulitis in the clinical setting of infection. No evidence of abscess or osteomyelitis. Review of systems: No chest pain or palpitations No nausea vomiting diarrhea No urinary symptoms No paresthesia no paresis Physical examination Chronically ill elderly female HEENT unremarkable (poor dentition) No subconjunctival hemorrhages Heart sounds 2/6 systolic murmur loud of the apex Lungs clear No splenomegaly Various tenderness swollen right upper extremity Ankle joint right lower extremity swollen and tender as well but without erythema No Janeway lesions or Osler's nodes Cooperative but very depressed affect Assessment and plan: Sepsis with Gram-positive cocci highly suspicious for Staph or Streptococcus given opiate use disorder significant risk for infective endocarditis and deep infection in addition to suppurative tenosynovitis * Open debridement in the operating room today with Orthopedic surgery * Repeat blood cultures tomorrow * Escalate vancomycin * Re-dose ceftriaxone * Add rifampin for tissue penetration and Synergy * Patient had urticaria and respiratory distress reaction to amoxicillin consider cefepime if ceftriaxone is not proven to be effective 2. Right ankle pain and swelling. Likely due to contusion. Check uric acid for possible gout possibility. 3. Opioid use disorder, with active use of inhaled fentanyl on the morning of admission. 4. Leukocytosis likely due to infection. 5. Volume depletion with acute kidney injury. 6. Elevated transaminases, likely reactive. 7. Hypokalemia. 8. Hypothyroidism. 9. Fibromyalgia. 10. GERD. 11. Depression. Disposition: * Inpatient 3 days of hospitalization further Code status: * Full code Time based billing: * 35 minutes were involved in evaluation of this patient including [id number] evaluation physical examination of the patient discussion with Orthopedic surgery review of imaging and objective laboratory findings discussion with pharmacy targeted antimicrobial therapy Exam Vital Signs (past 8 hours): - 07/26/25 09:00 07/26/25 11:49 Temperature 97.6 F 97 F L Pulse Rate 104 H 94 H Respiratory Rate 16 20 Blood Pressure 104/56 L 85/53 L Pulse Oximetry 98 98 Fraction of Inspired Oxygen 24 SaO2/FiO2 Ratio 400 Oxygen Delivery Method Nasal Cannula Oxygen Flow Rate 1 Objective Labs 07/26/25 06:50 07/25/25 04:55 Labs: Laboratory Results - last 24 hr 07/26/25 06:50 WBC 23.3 H RBC 4.01 Hgb 10.5 L Hct 32.2 L MCV 80.4 MCH 26.2 MCHC 32.6 RDW 15.6 H Plt Count 239 Neut % (Auto) 95.1 H Lymph % (Auto) 2.5 L [place] % (Auto) 2.2 L Eos % (Auto) 0.2 L Baso % (Auto) 0.0 Neut # (Auto) 88390 H Lymph # (Auto) 600 L [place] # (Auto) 500 Eos # (Auto) 0 Baso # (Auto) 0 C-Reactive Protein 36.7 H PFSH Medical History Acquired hypothyroidism (05/15/11) Asthma (05/15/11) Foot pain, left Postoperative pain of extremity Overdose Migraine Abdominal wall pain Chronic abdominal pain Fibromyalgia Chronic pain disorder Chronic pain Social History Smoking Status: Former smoker alcohol intake: former Assessment & Plan Time-Based Coding :: [TOTAL MINUTES] spent with patient and on the chart (including review of chart, obtaining history, exam, reviewing outside data, placing orders, documenting exam and treatment plan, and counseling patient) on [DATE].
[2025-07-26] MEDS: ENOXAPARIN 40 MG/0.4 ML SYRINGE SUBCUT (13:43)
--- NOTE | 2025-07-26 13:54 | DI.RAD.S_ITS ---
PROCEDURE: XR ANKLE RT 2V INDICATIONS: Pain TECHNIQUE: 2 views of the ankle were acquired. COMPARISON: [facility], CR, XR ANKLE RT MIN 3V, 07/24/2025, 7:42. FINDINGS: Diffuse osseous demineralization and soft tissue edema. Minimal degenerative change with preserved joint spaces. Calcaneal spurring. No acute fracture or bone erosion. IMPRESSION: Soft tissue swelling without acute osseous abnormality. Dictated by: Byron Henderson M.D. on 07/26/2025 at 15:21 Approved by: Byron Henderson M.D. on 07/26/2025 at 15:22
[2025-07-26 18:22] VITALS: BP 78/52; PULSE 89; RESP 20; TEMP 36.6; O2SAT 100
[2025-07-26 20:00] VITALS: BP 96/57; PULSE 95; RESP 18; TEMP 36.8; O2SAT 98
[2025-07-26 22:00] VITALS: BP 90/54; PULSE 90; RESP 16; TEMP 36.1; O2SAT 96
[2025-07-27 04:00] VITALS: BP 91/59; PULSE 96; RESP 18; TEMP 36.8; O2SAT 99
[2025-07-27] MEDS: LEVOTHYROXINE 25 MCG TABLET PO (06:00)
[2025-07-27 06:02] LABS: Add Manual Diff / Slide Review NO; Hematocrit 29.7 % (36-46); Hemoglobin 9.8 g/dL (12.0-16.0); Lymphocytes Absolute Auto 900 /uL (1100-4500); Mean Corpuscular HGB Conc 33.1 % (30-36); Mean Corpuscular Hemoglobin 26.5 PG (26-34); Mean Corpuscular Volume 80.1 fL (80-100); Platelet Count 226 X10^3/uL (150-400)
[2025-07-27 08:16] VITALS: BP 116/70; PULSE 101; RESP 18; TEMP 36.2; O2SAT 97
[2025-07-27] MEDS: VENLAFAXINE 37.5 MG TABLET 75 MG PO (08:46)
[2025-07-27] MEDS: GABAPENTIN 300 MG CAPSULE PO ×3 (08:47→17:30)
[2025-07-27] MEDS: PROPRANOLOL 10 MG TABLET 20 MG PO (08:47)
[2025-07-27] MEDS: CITALOPRAM 10 MG TABLET PO (08:47)
[2025-07-27] MEDS: PANTOPRAZOLE DR 40 MG TABLET PO (08:48)
[2025-07-27] MEDS: ENOXAPARIN 40 MG/0.4 ML SYRINGE SUBCUT (08:48)
[2025-07-27] MEDS: DICYCLOMINE 10 MG CAPSULE 20 MG PO ×2 (08:48→15:51)
[2025-07-27] MEDS: SODIUM CHLORIDE 0.45% 1,000 ML 100 ML IV (10:43)
--- NOTE | 2025-07-27 11:21 | DI.MRI.S_ITS ---
PROCEDURE: MR ANKLE RT WO CON INDICATIONS: right ankle pain and swelling TECHNIQUE: Noncontrast sagittal T1 spin echo and T2 fast spin echo with fat saturation, axial proton density fast spin echo and T2 fast spin echo with fat saturation, coronal T1 spin echo and T2 fast spin echo with fat saturation through the ankle/hindfoot. COMPARISON: None. FINDINGS: Image quality: Excellent. Osseous structures: No confluent marrow replacing process. No fracture. Moderate tibiotalar joint effusion. No periarticular erosion. No periarticular edema. Physiologic fluid in the subtalar joint with areas of full-thickness articular cartilage thinning in the posterior facet of the talus. Otherwise physiologic joint fluid within the talonavicular, calcaneocuboid, and visualized midfoot Ligaments: Intact syndesmotic ligaments. Intact anterior talofibular ligament. Intact posterior talofibular ligament. Intact calcaneofibular ligament. Intact deltoid ligament. A spring ligament complex appears intact on axial sequence. Grossly intact Lisfranc ligament. Muscles / Tendons: Intact tibialis anterior, extensor hallucis longus, and extensor digitorum longus. Moderate retro malleolar and mild inframalleolar tenosynovitis tibialis posterior and flexor hallucis longus. Intact flexor digitorum longus. Moderate tenosynovitis of the retro malleolar inframalleolar peroneus longus and brevis tendons. Intact Achilles tendon. No visualized intramuscular collection. Plantar fascia: Mild thickening of the central band of plantar fascia with small plantar calcaneal spur. Miscellaneous: Diffuse subcutaneous fat edema along the dorsal ankle and foot, there is circumferential subcutaneous fat edema in the lower leg. Degraded assessment or abscess due to patient refusal to continue exam, resulting in a non contrasted exam. Neurovascular: Unremarkable. IMPRESSION: 1. Moderate tibiotalar joint effusion with moderate tenosynovitis of tibialis posterior, flexor hallucis longus, and peroneus longus. These findings are concerning for possible infectious versus inflammatory arthropathy and inflammatory tenosynovitis without secondary findings osteomyelitis or septic arthritis. Recommend correlation with laboratory studies and if indicated, joint fluid sampling. 2. Circumferential subcutaneous fat edema in the lower leg and visualized foot without discrete loculated fluid collection on noncontrast exam. Communication: The above findings were discussed with the hospitalist physician, Jacob Saldana MD by Dr. Chauhan via telephone on 07/27/2025 at 15:30 pm PDT. Dictated by: August Chauhan M.D. on 07/27/2025 at 15:18 Approved by: August Chauhan M.D. on 07/27/2025 at 15:49
--- NOTE | 2025-07-27 11:59 | PC.NURSE ---
Addendum entered by Lyn Dejesus RN 07/27/25 15:18: Patient was medicated with 2mg of po dilaudid. She was groggy and sleepy up until around 1400, she had company and was still in and out of sleep. Pain medication not given prior to MRI as patient was just to groggy.. She was able to get through half of the MRI and she just came back. Tech said that she was starting to hurt but they were able to get some images of the r.ankle. She was just brought back. Will see if patient is more awake and needs pain medication, if she falls right back to sleep will reassess. Original Note: Patient given iv dilaudid x1 and po dilaudid for r.arm and r.ankle discomfort. She pivots to the bsc with one person assist. Voiding orange colored urine from medication. Dressing to r.hand and wrist with acewrap and gauze, pulses good, dressing not to tight. Having an MRI around 1400. She is sleeping now.
[2025-07-27 12:00] VITALS: BP 136/43; PULSE 78; RESP 20; TEMP 36.4; O2SAT 95
[2025-07-27] MEDS: cefTRIAXone 2,000 MG in SODIUM CHLORIDE 0.9% 100 ML 200 MG IV (12:28)
--- NOTE | 2025-07-27 13:05 | P.PN_ITS ---
Subjective Subjective Date Patient Seen: 07/27/25 Interval history: Chief complaint: Left hand redness swelling and stiffness with cellulitis and suppurative tenosynovitis History of present illness: 07/24: 59-year-old woman with chronic tobacco and active fentanyl use presented reporting an injury to her right hand, knee and ankle today. She states she was washing clothes in a basin hit her right hand against the back of level, falling backwards in hurting her knee and ankle. There was no head injury or loss of consciousness. She had been on Suboxone for opioid use disorder but stopped recently and started using inhaled fentanyl again. She denies IV drug use. Her last dose was at 1:00 a.m. this morning. She notes her right hand is swollen and painful with motion, as well as right knee and ankle, noting a right ankle is also swollen and hurts with movement and walking. She was noted to have a low blood pressure on route and was administered 2 L of normal saline. She is seen in the emergency department reporting ongoing pain. Hospital course: 07/25-: Increasing pain and swelling with night sweats with count escalated from 12-22 and worsening swelling of the hand patient has been taken to the OR for incision and drainage vancomycin increased and high-dose ceftriaxone given her 2nd dose supplemented by rifampin for tissue penetration Excerpt from operative report: Procedure: Incision and drainage of right index finger tendon sheath Same procedure(s) as scheduled: Yes Indications: Right index finger pyogenic tenosynovitis (CPT - 76462) Surgeon: Mic Carcamo Assisted?: No Anesthesia Type: General Operative Notes Findings: Purulent material was found within the index finger tendon sheath Closure Type: non-primary The distal end of the tendon sheath was then entered using an Angiocath. Normal saline was then irrigated through the tendon sheath and was observed exiting the distal end. As this began, a thick somewhat turbid fluid was evacuated from the tendon sheath consistent with pus. The tendon sheath was then irrigated with a total of approximately 500 mL of normal saline. After this was complete, inspection of the tendon showed improved overall appearance. The distal mid lateral incision was closed with a 4-0 nylon suture. A single 4-0 nylon suture was placed in the palmar incision as well on 1 side but left open on the other to allow for continued drainage. The hand was then dressed with Xeroform over the distal incision, 4x4s and Webril followed by an Mario. 07/26: 2/ blood cultures positive for strep pyogenes no fever or chills overnight TTE negative for infective endocarditis continuing to have pain and swelling at right hand and right foot we will repeat blood culture today vancomycin was discontinued per pharmacy management but continuing with ceftriaxone and rifampin. White count and CRP are still escalating which is of concern 07/27: 2nd set of blood cultures negative after 24 hours swelling improving in right upper extremity and right ankle deescalation of white blood cell count from 23-16 and C-reactive protein from 37-27 1. Strep pyogenes (grp a) M.I.C. RX --------- --- * Ampicillin <=0.25 S * Vancomycin 0.25 S * Cefotaxime <=0.12 S * Ceftriaxone <=0.12 S * Clindamycin R * Levofloxacin 0.5 S * Linezolid <=2 S * Penicillin <=0.06 S * Tetracycline R Echocardiogram ordered to evaluate for infective endocarditis appears negative: The ejection fraction is estimated to be 50-55%. There are no focal wall motion abnormalities. There is a mild dyssynchronous contraction pattern, consistent with a conduction abnormality. Diastolic parameters suggest a relaxation abnormality of the left ventricle, consistent with probable normal filling pressures. The right ventricle is normal in size and function. The left atrium is mildly dilated. There is mild to moderate mitral regurgitation. There is no other significant valvular heart disease. The aortic root is normal size. There is no obvious valvular vegetation identified on this exam. Consider VEL if there is a high degree of clinical suspicion for endocarditis and clinically appropriate. MRI of the ankle shows no osteomyelitis or deep infection: IMPRESSION: Nonspecific subcutaneous edema which could represent cellulitis in the clinical setting of infection. No evidence of abscess or osteomyelitis. Review of systems: No chest pain or palpitations No nausea vomiting diarrhea No urinary symptoms No paresthesia no paresis Physical examination Chronically ill elderly female HEENT unremarkable (poor dentition) No subconjunctival hemorrhages Heart sounds 2/6 systolic murmur loud of the apex Lungs clear No splenomegaly Diminished tenderness swollen right upper extremity Ankle joint right lower extremity swollen and tender as well but without erythema No Janeway lesions or Osler's nodes Cooperative but very depressed affect Assessment and plan: Streptococcus bacteremia transthoracic echocardiogram without evidence of infective endocarditis and deep infection in addition to suppurative tenosynovitis * Open debridement in the operating room today with Orthopedic surgery 07/25 * Repeat blood cultures no growth in 24 hours * High-dose ceftriaxone through Friday 06/29 then consider combination antibiotics (Levaquin and rifampin might be very workable) * Combined with rifampin for tissue penetration and Synergy * Not a candidate for outpatient IV therapy due active opiate use disorder 2. Right ankle pain and swelling. Likely due to contusion. MRI negative for osteomyelitis suppurative tenosynovitis. 3. Opioid use disorder, with active use of inhaled fentanyl on the morning of admission. 4. Leukocytosis likely due to infection. 5. Volume depletion with acute kidney injury. 6. Elevated transaminases, likely reactive. 7. Hypokalemia. 8. Hypothyroidism. 9. Fibromyalgia. 10. GERD. 11. Depression. Disposition: * Inpatient 3 days of hospitalization further Code status: * Full code Time based billing: * 35 minutes were involved in evaluation of this patient including [id number] evaluation physical examination of the patient discussion with Orthopedic surgery review of imaging and objective laboratory findings discussion with pharmacy targeted antimicrobial therapy Exam Vital Signs (past 8 hours): - 07/27/25 08:16 07/27/25 12:00 Temperature 97.2 F L 97.6 F Pulse Rate 101 H 78 Respiratory Rate 18 20 Blood Pressure 116/70 136/43 L Pulse Oximetry 97 95 Fraction of Inspired Oxygen 24 SaO2/FiO2 Ratio 400 Oxygen Delivery Method Nasal Cannula Oxygen Flow Rate 0 Objective Labs 07/27/25 04:58 07/25/25 04:55 Labs: Laboratory Results - last 24 hr 07/27/25 04:58 WBC 16.0 H RBC 3.71 L Hgb 9.8 L Hct 29.7 L MCV 80.1 MCH 26.5 MCHC 33.1 RDW 15.7 H Plt Count 226 Neut % (Auto) 91.6 H Lymph % (Auto) 5.8 L [place] % (Auto) 2.2 L Eos % (Auto) 0.3 L Baso % (Auto) 0.1 Neut # (Auto) 21678 H Lymph # (Auto) 900 L [place] # (Auto) 400 Eos # (Auto) 100 Baso # (Auto) 0 C-Reactive Protein 27.2 H [facility] Medical History Acquired hypothyroidism (05/15/11) Asthma (05/15/11) Foot pain, left Postoperative pain of extremity Overdose Migraine Abdominal wall pain Chronic abdominal pain Fibromyalgia Chronic pain disorder Chronic pain Social History Smoking Status: Former smoker alcohol intake: former Assessment & Plan Time-Based Coding :: [TOTAL MINUTES] spent with patient and on the chart (including review of chart, obtaining history, exam, reviewing outside data, placing orders, documenting exam and treatment plan, and counseling patient) on [DATE].
--- NOTE | 2025-07-27 13:39 | PM.PNPO.1 ---
Exam Vital Signs (past 8 hours): - 07/27/25 08:16 07/27/25 12:00 Temperature 97.2 F L 97.6 F Pulse Rate 101 H 78 Respiratory Rate 18 20 Blood Pressure 116/70 136/43 L Pulse Oximetry 97 95 Fraction of Inspired Oxygen 24 SaO2/FiO2 Ratio 400 Oxygen Delivery Method Nasal Cannula Oxygen Flow Rate 0 Objective Labs 07/27/25 04:58 07/25/25 04:55 Labs: Laboratory Results - last 24 hr 07/27/25 04:58 WBC 16.0 H RBC 3.71 L Hgb 9.8 L Hct 29.7 L MCV 80.1 MCH 26.5 MCHC 33.1 RDW 15.7 H Plt Count 226 Neut % (Auto) 91.6 H Lymph % (Auto) 5.8 L [place] % (Auto) 2.2 L Eos % (Auto) 0.3 L Baso % (Auto) 0.1 Neut # (Auto) 56488 H Lymph # (Auto) 900 L [place] # (Auto) 400 Eos # (Auto) 100 Baso # (Auto) 0 C-Reactive Protein 27.2 H PFSH Medical History Acquired hypothyroidism (05/15/11) Asthma (05/15/11) Foot pain, left Postoperative pain of extremity Overdose Migraine Abdominal wall pain Chronic abdominal pain Fibromyalgia Chronic pain disorder Chronic pain Social History Smoking Status: Former smoker alcohol intake: former Assessment & Plan Post-op Postoperative Procedures: Procedures Operation Date: 07/25/25 16:30 Actual Procedure Side Surgeon p Incision and Drainage Right Hand Infection Right Mic Carcamo MD Postoperative plan narrative: ID: 59 yo F s/p right index finger incision and drainage for pyogenic flexor tenosynovitis on 07/26/25 S: Patient reports that her right hand pain has significantly improved. However she continues to complain of right ankle pain. She reports that this has not gotten any better. Denies F/C/NS/CP/SOB. Tolerating PO. O: Right Upper Extremity: Mild edema about hand. No tenderness to palpation along the volar aspect of the right index finger, palm or forearm. Incision sites look clean. No drainage. Fires AIN/PIN/median/radial/ulnar nerves. SILT all distributions. 2+ Radial pulse, brisk cap refil to all digits Right ankle: Skin intact. Extensive edema with no erythema. No fluctuance noted.. No proximal leg pain, knee pain or foot pain. SILT s/s/sp/dp/t. Fires ehl/fhl/ta/gs/per however describes significant pain with both active and passive motion of the ankle. Brisk cap refill to all digits. 2+ DP pulse. IMAGING: Right ankle xray radiographs on July 26, 2025: No fractures or dislocations. Soft tissue swelling. Right foot MRI on July 26, 2025: Edema throughout the subcutaneous tissues. No focal abscess noted. A/P: 59 yo F s/p incision and drainage of the right index finger for pyogenic flexor tenosynovitis. This is doing clinically quite well. She has had mild improvement in her inflammatory markers however she continues to complain of right ankle pain. A right ankle x-ray was obtained but a right foot MRI was obtained. I am unable to assess the ankle with this imaging. We will obtain a urgent right ankle MRI. ?Admitted to Hospitalist (Appreciate assistance with this patient) ?NWB RLE ?PT/OT ?DVT Proph per primary team ?Multimodal Pain Control Treatment plan we will be based on the MRI of the right ankle. ?DISPO: Pending however the patient will follow up with Orthopedics in 2 weeks Emil Gonsales MD Orthopedics [phone] cell Time Spent With Patient Time with patient: 25 - 35 minutes
[2025-07-27 16:00] VITALS: BP 127/69; PULSE 83; RESP 18; TEMP 36.6; O2SAT 94
[2025-07-27 20:00] VITALS: BP 101/64; PULSE 98; RESP 17; TEMP 36.4; O2SAT 99
[2025-07-28] VITALS (14 sets, daily range): BP systolic 90–114; BP diastolic 52–91; PULSE 84–94; RESP 14–23; TEMP 36.2–37.7; O2SAT 96–100
[2025-07-28] MEDS: CITALOPRAM 10 MG TABLET PO ×3 (00:37→21:25)
[2025-07-28] MEDS: VENLAFAXINE 37.5 MG TABLET 75 MG PO ×3 (00:37→21:25)
[2025-07-28] MEDS: DICYCLOMINE 10 MG CAPSULE 20 MG PO ×3 (00:37→21:25)
[2025-07-28] MEDS: PROPRANOLOL 10 MG TABLET 20 MG PO ×3 (00:37→21:25)
[2025-07-28] MEDS: PANTOPRAZOLE DR 40 MG TABLET PO ×3 (00:37→21:25)
[2025-07-28] MEDS: GABAPENTIN 300 MG CAPSULE PO ×4 (00:37→21:25)
[2025-07-28] MEDS: SODIUM CHLORIDE 0.45% 1,000 ML 100 ML IV (00:44)
[2025-07-28] MEDS: LEVOTHYROXINE 25 MCG TABLET PO (05:37)
--- NOTE | 2025-07-28 07:30 | PM.PNPO.1 ---
Subjective Subjective Date Patient Seen: 07/28/25 Time Patient Seen: 07:00 Interval history: ID: 59 yo F s/p right index finger incision and drainage for pyogenic flexor tenosynovitis on 07/26/25 S: Patient reports that her right hand pain has significantly improved. However she continues to complain of right ankle pain. She reports that this has not gotten any better. Denies F/C/NS/CP/SOB. She has been NPO since midnight. O: Right Upper Extremity: Mild edema about hand. No tenderness to palpation along the volar aspect of the right index finger, palm or forearm. Incision sites look clean. No drainage. Fires AIN/PIN/median/radial/ulnar nerves. SILT all distributions. 2+ Radial pulse, brisk cap refill to all digits Right ankle: Skin intact. Extensive edema with no erythema. No fluctuance noted.. No knee pain. Fires ehl/fhl/ta/gs/per however describes significant pain with both active and passive motion of the ankle. Brisk cap refill to all digits. 2+ DP pulse. IMAGING: Right ankle xray radiographs on July 26, 2025: No fractures or dislocations. Soft tissue swelling. Right foot MRI on July 26, 2025: Edema throughout the subcutaneous tissues. No focal abscess noted. Right ankle MRI on 07/27/25: I independently reviewed the MRI and agree with the impression below: IMPRESSION: 1. Moderate tibiotalar joint effusion with moderate tenosynovitis of tibialis posterior, flexor hallucis longus, and peroneus longus. These findings are concerning for possible infectious versus inflammatory arthropathy and inflammatory tenosynovitis without secondary findings osteomyelitis or septic arthritis. Recommend correlation with laboratory studies and if indicated, joint fluid sampling. 2. Circumferential subcutaneous fat edema in the lower leg and visualized foot without discrete loculated fluid collection on noncontrast exam. CRP pending A/P: 59 yo F s/p incision and drainage of the right index finger for pyogenic flexor tenosynovitis. This is doing clinically quite well. She has had mild improvement in her inflammatory markers however she continues to complain of right ankle pain. THe ankle MRI is concerning for septic arthritis and clinically she has significant pain with motion. I discussed with the patient the risks, benefits and alternatives of surgical versus nonsurgical treatment. I am concerned that her ankle might be infected and want to ensure that she has an adequate washout. My plan is for ankle arthroscopic washout unless there is significant purulence and then I will do an open washout. I discussed with her the risks of not doing the procedure and also discussed the risks of the procedure to include but not limited to damage to arteries, veins, nerves, need for additional surgery. She understands all the risks and wishes to proceed. She was consented for an I and D of the right ankle arthroscopic versus open. ?Admitted to Hospitalist (Appreciate assistance with this patient) ?NWB RLE ?PT/OT ?DVT Proph per primary team ?Multimodal Pain Control I & D of right ankle - arthroscopic vs open ?DISPO: Pending however the patient will follow up with Orthopedics in 2 weeks Exam Vital Signs (past 8 hours): - 07/28/25 01:00 07/28/25 04:00 Temperature 97.4 F L 98.2 F Pulse Rate 90 92 H Respiratory Rate 16 16 Blood Pressure 108/65 98/63 Pulse Oximetry 99 98 Oxygen Flow Rate 0 0 Fraction of Inspired Oxygen 24 SaO2/FiO2 Ratio 400 Oxygen Delivery Method Nasal Cannula Oxygen Flow Rate 0 Objective Labs 07/27/25 04:58 07/25/25 04:55 PFSH Medical History Abdominal wall pain Acquired hypothyroidism (05/15/11) Asthma (05/15/11) Chronic abdominal pain Chronic pain Chronic pain disorder Fibromyalgia Foot pain, left Migraine Overdose Postoperative pain of extremity Social History Smoking Status: Former smoker alcohol intake: former Assessment & Plan Post-op Postoperative Procedures: Procedures Operation Date: 07/25/25 16:30 Actual Procedure Side Surgeon p Incision and Drainage Right Hand Infection Right Mic Carcamo MD
--- NOTE | 2025-07-28 07:49 | PM.PN.1 ---
Subjective Subjective Interval history: S: She was having a lot of pain primarily related to her right ankle. She was status right ankle washout for septic arthritis. Her right hand is improved with less swelling and pain. She was using fentanyl before recent initiation of Suboxone. O: NAD, alert and oriented. Fluent speech. Lungs are clear, normal rate and effort. Heart is regular, no murmur gallop or rub. Abdomen is soft, non distended. Extremities are free of edema. Right ankle is in a boot. Right hand is swollen over the dorsal aspect, no fluctuant. She was able to tolerate flexion-extension of the wrist and joints without increased pain. A/P: 1. Streptococcus bacteremia transthoracic echocardiogram without evidence of infective endocarditis and deep infection in addition to suppurative tenosynovitis Open debridement in the operating room today with Orthopedic surgery 07/25 Repeat blood cultures no growth in 24 hours High-dose ceftriaxone through Friday 06/29 then consider combination antibiotics (Levaquin and rifampin might be very workable) Combined with rifampin for tissue penetration and Synergy Not a candidate for outpatient IV therapy due active opiate use disorder 2. Right ankle septic arthritis. Likely due to contusion. MRI negative for osteomyelitis suppurative tenosynovitis. 3. Opioid use disorder and tolerance, with active use of inhaled fentanyl on the morning of admission. 4. Leukocytosis likely due to infection. 5. Volume depletion with acute kidney injury. Improved. 6. Elevated transaminases, likely reactive. 7. Hypokalemia. Improved. 8. Hypothyroidism. 9. Fibromyalgia. 10. GERD. 11. Depression. 12. Right index finger tenosynovitis. S/P I&P. PLAN: -Continue IV Abx. -discussed with Orthopedics, they will re-evaluate the ankle tomorrow. We will continue to monitor the hand carefully. Exam Vital Signs (past 8 hours): - 07/28/25 01:00 07/28/25 04:00 Temperature 97.4 F L 98.2 F Pulse Rate 90 92 H Respiratory Rate 16 16 Blood Pressure 108/65 98/63 Pulse Oximetry 99 98 Oxygen Flow Rate 0 0 Fraction of Inspired Oxygen 24 SaO2/FiO2 Ratio 400 Oxygen Delivery Method Nasal Cannula Oxygen Flow Rate 0 Objective Labs 07/28/25 10:24 07/25/25 04:55 COUNT INCLUDES THE [facility] Medical History Acquired hypothyroidism (05/15/11) Asthma (05/15/11) Foot pain, left Postoperative pain of extremity Overdose Migraine Abdominal wall pain Chronic abdominal pain Fibromyalgia Chronic pain disorder Chronic pain Social History Smoking Status: Former smoker alcohol intake: former Assessment & Plan Time-Based Coding :: [TOTAL MINUTES] spent with patient and on the chart (including review of chart, obtaining history, exam, reviewing outside data, placing orders, documenting exam and treatment plan, and counseling patient) on [DATE].
[2025-07-28 10:31] LABS: Hematocrit 32.1 % (36-46); Hemoglobin 10.5 g/dL (12.0-16.0); Mean Corpuscular HGB Conc 32.7 % (30-36); Mean Corpuscular Hemoglobin 26.2 PG (26-34); Mean Corpuscular Volume 80.2 fL (80-100); Platelet Count 212 X10^3/uL (150-400)
[2025-07-28 10:32] LABS: Add Manual Diff / Slide Review YES
[2025-07-28 10:52] LABS: Basophils Percent Manual 1.0 % (0-1); Lymphocytes Percent Manual 10.0 % (25-45); Monocytes Percent Manual 1.0 % (2-11); Neutrophils Absolute Manual 13024 /uL (3000-5900); Segmented Neutrophils Percent 88.0 % (38-70); Total Cells Counted 100
[2025-07-28 10:53] LABS: Anisocytosis 1+
[2025-07-28] MEDS: LACTATED RINGERS 1,000 ML 42 ML IV (12:39)
--- NOTE | 2025-07-28 13:15 | PC.NURSE ---
Patient off to surgery for i/d of r.foot. Medicated with 2mg of oral dilaudid prior.
--- NOTE | 2025-07-28 13:22 | PM.PREOP ---
Pre-operative Note COVID-19 COVID-19 status: Not tested Interval Note History & Physical reviewed/Exam performed by Physician: Yes Changes to H&P: No
[2025-07-28] MEDS: SODIUM CHLORIDE IRRIG SOLUTION 3,000 ML, EPINEPHrine 3 MG IRR (14:10)
[2025-07-28] MEDS: ALBUTEROL 2.5 MG/3 ML NEB (ADULT) INH (15:00)
--- NOTE | 2025-07-28 15:00 | SUR.OPER ---
Supine on padded OR bed, head on pillow, arms secured on padded arm boards at <90 degrees abduction, non-operative leg secured, operative leg prepped into sterile field. safety belt at thigh. final positioning done by provider
--- NOTE | 2025-07-28 15:30 | CM.DPC ---
DCP Cont: Per Ortho Surgeon, pt had I&D of her finger on 07/26 and now taken to OR for washout of her ankle today 07/28. Continues on IV abx and cultures pending. SW attempted to meet bedside with pt but off floor still in OR and met with primary contact Dtr Jaida Nguyễn ([phone]) and her and she confirms that pt lives at home in [facility] with her Life Partner (not legally ) and they state he is a poor influence on the pt and did not help pt to seek medical tx and he has obtained around 15-20 cats on their property and the household is not a sterile environment. Dtr states pt is agreeable to d/c to their home in [facility] for ongoing recovery after being admitted to the hospital and also towards ongoing abstinence from drugs/alcohol. They are aware of pt's recent relapse on Fentanyl and are supporting pt in remaining sober and attending [facility] tx. SW provided the medical DPOA brochure and pwk to discuss with pt when she returns to the OR as Dtr very supportive and involved in pt's care and would be helpful to have a formal POA for possible future needs. They will review with pt when she returns to the floor and will follow up with SW tomorrow. SW discussed need to maybe work with PT mine inspector federalstaff radiologist after wash out to confirm pt can mobilize well once pain and swelling reduced after washout. Discussed plan of hopeful transition to PO abx at d/c due to pt's current drug use and risks with IV abx at d/c. Plan: SW to follow for plan of discharge to Dtr Jaida's house for additional support and outpt f/u. LANDON Joyner
[2025-07-28 15:31] LABS: Body Fluid Clotted? SPECIMEN CLOTTED
[2025-07-28 15:39] LABS: Lymphocytes Body Fluid 9 %; Neutrophils Body Fluid 91 %
--- NOTE | 2025-07-28 15:53 | PM.OP.1 ---
Operative Date/Time/Diagnoses Date of procedure: 07/28/25 Time of procedure: 14:00 Pre-op diagnosis: Right septic ankle Post-op diagnosis: same Procedure & Clinicians Procedure: Arthroscopic irrigation and debridement right ankle Same procedure(s) as scheduled: Yes Surgeon: Deanna Lopez Assisted?: Yes [employer] Member: Elaine Carpenter Anesthesia Type: General Operative Notes Findings: See below Closure Type: primary Specimen(s): other (Aerobic, gram stain, anaerobic, fungal, and fluid sent for Cell count, crystals) Applied: none Estimated Blood Loss (mL): 5 Procedure in detail: The patient's right lower extremity was signed as the correct extremity. She was taken back to the operating room and placed in supine position. All bony prominences were padded. A well-padded tourniquet was placed her right thigh but was not inflated throughout the case. A well leg walters was utilized to flex her hip and knee and put her ankle in a position for possible traction. General anesthesia was induced. The patient was prepped and draped in the standard sterile fashion. A time-out was performed, confirming the correct patient, correct procedure, correct extremity and initials on the operative site. A 22 gauge needle was placed in the joint from the anteromedial portal site and the ankle was aspirated. Around 3 cc of purulent fluid was aspirated from the joint. Next an 11 blade was used to make a bob in the skin and a mosquito was used to enter into the joint space. The arthroscope was introduced into the joint. I then utilized a spinal needle for localization to place an anterolateral portal a bob was made in the skin with 11 blade and a mosquito was utilized to enter into the joint. A diagnostic arthroscopy was performed. The talar cartilage and tibial cartilage was intact. The deltoid ligament was intact. The FHL was intact. The talar cartilage appeared to be intact and there was no damage from the infection visible. Copious amounts of fluid were irrigated through the ankle joint. A total of 6 L was irrigated through the joint. Prior to cultures were obtained of the ankle prior to washing ankle out utilizing the purulent material that was aspirated. These were sent to the lab for diagnosis. After copious irrigation I then closed the incisions with 3-0 nylon a sterile dressing was obtained and placed consisting of Xeroform plain gauze and an Mario wrap. The placed in which patient placed into a cam walker. The patient was awoken and taken to the recovery room in stable condition. She will be readmitted to the Internal Medicine service for IV antibiotics. I will continue to follow her and ensure her ankle range motion improves and cellulitic component improves. She can be touchdown weight-bearing at the ankle but recommend rest ice and elevation as much as possible. Complications: none Post-operative Condition: stable Disposition: PACU
[2025-07-28] MEDS: cefTRIAXone 2,000 MG in SODIUM CHLORIDE 0.9% 100 ML 200 MG IV (16:21)
[2025-07-28 16:57] LABS: Crystals Body Fluid - IN-HOUSE NONE Present
[2025-07-28] MEDS: ONDANSETRON 4 MG ODT PO (17:25)
--- NOTE | 2025-07-28 18:23 | PC.NURSE ---
Patient back from surgery at 1316, she had a washout of her r.ankle joint, patient has an immobilizer boot in place. Given dilaudid oral and zofran for discomfort. This has been helpful.
[2025-07-28] MEDS: ACETAMINOPHEN 325 MG TABLET 650 MG PO (19:34)
[2025-07-28] MEDS: DOCUSATE 100 MG CAPSULE PO (21:25)
[2025-07-29] VITALS: BP 102/60; PULSE 75; RESP 17; TEMP 36.6; O2SAT 98
[2025-07-29] MEDS: ACETAMINOPHEN 325 MG TABLET 650 MG PO ×3 (00:30→18:43)
[2025-07-29 05:00] VITALS: BP 94/56; PULSE 72; RESP 17; TEMP 36.1; O2SAT 98
[2025-07-29 06:09] LABS: Hematocrit 29.4 % (36-46); Hemoglobin 9.6 g/dL (12.0-16.0); Mean Corpuscular HGB Conc 32.7 % (30-36); Mean Corpuscular Hemoglobin 26.1 PG (26-34); Mean Corpuscular Volume 79.7 fL (80-100); Platelet Count 255 X10^3/uL (150-400)
[2025-07-29 06:15] LABS: Add Manual Diff / Slide Review YES
[2025-07-29 06:37] LABS: Lymphocytes Percent Manual 13.0 % (25-45); Monocytes Percent Manual 3.0 % (2-11); Neutrophils Absolute Manual 10836 /uL (3000-5900); Segmented Neutrophils Percent 84.0 % (38-70); Total Cells Counted 100
[2025-07-29] MEDS: LEVOTHYROXINE 25 MCG TABLET PO ×2 (06:37→11:49)
[2025-07-29 06:38] LABS: Anisocytosis 1+; Microcytosis 1+
[2025-07-29 08:00] VITALS: BP 95/65; PULSE 75; RESP 20; TEMP 36.5; O2SAT 99
--- NOTE | 2025-07-29 08:29 | PM.PN.1 ---
Subjective Subjective Interval history: [facility] complaint: Left hand redness swelling and stiffness with cellulitis and suppurative tenosynovitis History of present illness: 07/24: 59-year-old woman with chronic tobacco and active fentanyl use presented reporting an injury to her right hand, knee and ankle today. She states she was washing clothes in a basin hit her right hand against the back of level, falling backwards in hurting her knee and ankle. There was no head injury or loss of consciousness. She had been on Suboxone for opioid use disorder but stopped recently and started using inhaled fentanyl again. She denies IV drug use. Her last dose was at 1:00 a.m. this morning. She notes her right hand is swollen and painful with motion, as well as right knee and ankle, noting a right ankle is also swollen and hurts with movement and walking. She was noted to have a low blood pressure on route and was administered 2 L of normal saline. She is seen in the emergency department reporting ongoing pain. Hospital course: 07/25-: Increasing pain and swelling with night sweats with count escalated from - and worsening swelling of the hand patient has been taken to the OR for incision and drainage vancomycin increased and high-dose ceftriaxone given her 2nd dose supplemented by rifampin for tissue penetration 07/27: Ankle aspirated and washed out. S: She declined Suboxone at this point. It interferes with her pain medication. Decreased pain in ankle and hand. There was much less swelling in the hand. O: NAD, alert and oriented. Fluent speech. Lungs are clear, normal rate and effort. Heart is regular, no murmur gallop or rub. Abdomen is soft, non distended. Extremities are free of edema. IMAGING: Ankle MRI: 1. Moderate tibiotalar joint effusion with moderate tenosynovitis of tibialis posterior, flexor hallucis longus, and peroneus longus. These findings are concerning for possible infectious versus inflammatory arthropathy and inflammatory tenosynovitis without secondary findings osteomyelitis or septic arthritis. Recommend correlation with laboratory studies and if indicated, joint fluid sampling. 2. Circumferential subcutaneous fat edema in the lower leg and visualized foot without discrete loculated fluid collection on noncontrast exam. Ankle x-ray: Soft tissue swelling without acute osseous abnormality. Foot MRI: Nonspecific subcutaneous edema which could represent cellulitis in the clinical setting of infection. No evidence of abscess or osteomyelitis. Focal susceptibility artifact at the tip of the great toe could represent small metallic foreign body. Correlation with plain film recommended. Echo: The ejection fraction is estimated to be 50-55%. There are no focal wall motion abnormalities. There is a mild dyssynchronous contraction pattern, consistent with a conduction abnormality. Diastolic parameters suggest a relaxation abnormality of the left ventricle, consistent with probable normal filling pressures. The right ventricle is normal in size and function. The left atrium is mildly dilated. There is mild to moderate mitral regurgitation. There is no other significant valvular heart disease. The aortic root is normal size. There is no obvious valvular vegetation identified on this exam. Consider VEL if there is a high degree of clinical suspicion for endocarditis and clinically appropriate. Upper extremity CT: Diffuse subcutaneous edema and soft tissue swelling is noted particularly over the dorsum of the wrist. No organized in capsulated fluid collection present to suggest focal abscess. Underlying osseous structures are appropriately mineralized without lytic lesion. Joint spaces are maintained. No marginal erosions Diffuse cellulitis without evidence of organized abscess or osseous erosion Chest x-ray: No acute cardiopulmonary abnormality is seen. Knee x-ray: A/P: 1. Streptococcus bacteremia (transthoracic echocardiogram without evidence of infective endocarditis). Open debridement in the operating room today with Orthopedic surgery 07/25 Repeat blood cultures no growth in 24 hours High-dose ceftriaxone through Friday 06/29 then consider combination antibiotics (Levaquin and rifampin might be very workable) Combined with rifampin for tissue penetration and Synergy Not a candidate for outpatient IV therapy due active opiate use disorder 2. Right ankle septic arthritis. Likely due to contusion. MRI negative for osteomyelitis suppurative tenosynovitis. 3. Opioid use disorder and tolerance, with active use of inhaled fentanyl on the morning of admission. 4. Leukocytosis likely due to infection. 5. Volume depletion with acute kidney injury. Improved. 6. Elevated transaminases, likely reactive. 7. Hypokalemia. Improved. 8. Hypothyroidism. 9. Fibromyalgia. 10. GERD. 11. Depression. 12. Right index finger tenosynovitis. S/P I&P. PLAN: -Continue IV Abx. Discussing optimal therapy with pharm (on Ceftriaxone now). -discussed with Orthopedics, she underwent ankle washout on 07/28. -we will discuss with ortho again today after they re-evaluate the ankle. -continue pain control, she declined Suboxone as she feels it will interfere with her pain control. -she currently denies injection drug use to me today. Exam Vital Signs (past 8 hours): - 07/29/25 05:00 07/29/25 08:00 Temperature 97.0 F L 97.7 F Pulse Rate 72 75 Respiratory Rate 17 20 Blood Pressure 94/56 L 95/65 Pulse Oximetry 98 99 Oxygen Flow Rate 0 0 Fraction of Inspired Oxygen 24 SaO2/FiO2 Ratio 400 Oxygen Delivery Method Room Air Oxygen Flow Rate 0 Objective Labs 07/29/25 05:30 07/25/25 04:55 Labs: Laboratory Results - last 24 hr 07/28/25 07/28/25 07/29/25 10: 14:55 05:30 WBC 14.8 H 12.9 H RBC 4.01 3.70 L Hgb 10.5 L 9.6 L Hct 32.1 L 29.4 L MCV 80.2 79.7 L MCH 26.2 26.1 MCHC 32.7 32.7 RDW 15.7 H 16.0 H Plt Count 212 255 Neut % (Auto) Not Reportable Not Reportable Lymph % (Auto) Not Reportable Not Reportable [place] % (Auto) Not Reportable Not Reportable Eos % (Auto) Not Reportable Not Reportable Baso % (Auto) Not Reportable Not Reportable Lymph # (Auto) Not Reportable Not Reportable [place] # (Auto) Not Reportable Not Reportable Baso # (Auto) Not Reportable Not Reportable Total Counted 100 100 Seg Neutrophils % 88.0 H 84.0 H Lymphocytes % (Manual) 10.0 L 13.0 L Monocytes % (Manual) 1.0 L 3.0 Basophils % (Manual) 1.0 Neutrophils # (Manual) 87349 H 11302 H RBC Morphology See below See below Anisocytosis 1+ H 1+ H Microcytosis 1+ H C-Reactive Protein 23.5 H 19.8 H Fluid Color [place] Fluid Appearance Cloudy Fluid RBC Not Reportable [place] Tot Nucleated Cell Not Reportable Fluid Neutrophils % 91 Fluid Lymphocytes % 9 Fluid Crystals None present Body Fluid Clot Specimen clotted [facility] Medical History Acquired hypothyroidism (05/15/11) Asthma (05/15/11) Foot pain, left Postoperative pain of extremity Overdose Migraine Abdominal wall pain Chronic abdominal pain Fibromyalgia Chronic pain disorder Chronic pain Social History Smoking Status: Former smoker alcohol intake: former Assessment & Plan Time-Based Coding :: [TOTAL MINUTES] spent with patient and on the chart (including review of chart, obtaining history, exam, reviewing outside data, placing orders, documenting exam and treatment plan, and counseling patient) on [DATE].
[2025-07-29] MEDS: ONDANSETRON 4 MG/2 ML INJ IV (09:35)
[2025-07-29] MEDS: ENOXAPARIN 40 MG/0.4 ML SYRINGE SUBCUT (09:35)
[2025-07-29] MEDS: GABAPENTIN 300 MG CAPSULE PO ×4 (10:03→20:59)
[2025-07-29] MEDS: VENLAFAXINE 37.5 MG TABLET 75 MG PO ×2 (10:03→20:59)
[2025-07-29] MEDS: PANTOPRAZOLE DR 40 MG TABLET PO ×2 (10:04→20:59)
[2025-07-29] MEDS: CITALOPRAM 10 MG TABLET PO ×2 (10:04→20:59)
[2025-07-29] MEDS: DICYCLOMINE 10 MG CAPSULE 20 MG PO ×3 (10:04→21:00)
[2025-07-29] MEDS: PROPRANOLOL 10 MG TABLET 20 MG PO ×2 (10:05→20:59)
--- NOTE | 2025-07-29 10:25 | PT.IIE ---
Current Diagnoses Sepsis, unspecified organism (07/24/25) Unspecified sprain of unspecified finger, initial encounter (07/24/25) Surgery Performed Operation Date: 07/25/25 16:30 Actual Procedures p Incision and Drainage Right Hand Infection(Right) - Mic Carcamo MD Operation Date: 07/28/25 13:00 Actual Procedures p right ankle arthroscopic washout vs open(Right) - Deanna Lopez DO Medical History (Last Reviewed 07/24/25 @ 15:43 by Chris Fagan MD) Abdominal wall pain Acquired hypothyroidism (05/15/11) Asthma (05/15/11) Chronic abdominal pain Chronic pain Chronic pain disorder Fibromyalgia Foot pain, left Migraine Overdose Postoperative pain of extremity Physical Therapy Inpatient Evaluation/Re-Eval M1 PT/OT-IP Prior Functional Status Start: 07/29/25 13:04 Freq: NEEDED Status: Active Protocol: Document 07/29/25 10:25 AB (Rec: 07/29/25 13:25 AB [id number]) Medical Review Prior Functional Status Medical History Yes Reviewed Communication able to make needs known Mobility and Gait pt stated that she was independent with all mobilities and ambulation without AD Social History Household Members significant other Living Arrangements House Number of Floors ( One Floor Floors) Number of Stairs To 2 steps without rails to enter Enter/Railing? Home Environment Standard Height Toilet,Tub/Shower Home Equipment Hand Held Shower,Grab Bars In Shower Additional Social pt lives with her boyfriend but plans to go to her History Comment daughter's house upon d/c: info provided is regarding daughter's home set up. M2 PT-IP Current Condition Start: 07/29/25 13:04 Freq: NEEDED Status: Active Protocol: Document 07/29/25 10:25 AB (Rec: 07/29/25 13:25 AB [id number]) Physical Therapy Current Condition Current Condition Evaluation Date 07/29/25 Treatment Diagnosis R hand cellulitis s/p I&D; R ankle I&D; difficulty in walking Onset Date 07/24/25 M3 PT-IP Subjective Start: 07/29/25 13:04 Freq: NEEDED Status: Active Protocol: Document 07/29/25 10:25 AB (Rec: 07/29/25 13:25 AB [id number]) Subjective Physical Therapy Visit Type Type Initial Evaluation Visit Start Time 10:25 Visit Stop Time 10:55 [employer] of [employer] Visits 0 Physical Therapy Visit Comments Patient Comments agreeable to do PT Therapy Pain Assessment Pain When Pain Assessed At Rest Pain Present Pain Present Pain Reported Location Right Leg Intensity 10 Scale Used Numeric (0 - 10) Pain Management Distraction,Modification of Treatment,Re-positioning, Techniques Timing of Activity with Medications M4 PT-IP Mobility and Gait Start: 07/29/25 13:04 Freq: NEEDED Status: Active Protocol: Document 07/29/25 10:25 AB (Rec: 07/29/25 13:25 AB [id number]) PT-Bed Mobility Assessment Supine to Sit Supine to Sit Standby Assistance PT-Transfer Assessment Sit to and From Stand Sit to and from Contact Guard Assistance,1 Person Assistance,Use of Stand Upper Extremities Equipment Transfer Assistive Gait Belt,Front Wheeled Walker Device Orthotic/Prosthetic No Devices or Brace: Transfers Transfer Destination Chair,Bedside Commode Transfer Technique ambulated Transfer Ability Level of Assist Contact Guard Assistance,Minimal Assistance,1 Person Assistance,Use of Upper Extremities Comments Mobility Comments pt in bed and agreeable to do PT. also requesting to use the toilet. obtained PLOF and home set up. pt refused to ambulate to the toilet but agreed to take steps to use bedside commode. supine to sit SBA. able to sit on EOB SBA. Pt with R walking boot on and educated on TDWB but if unable to maintain, will have to do NWB on RLE. sit to stand CGA and cues and able to ambulate to the bedside commode ~ 5 ft using fWW CGA to min A and cues. required assist with brief management. sit to stand from the commode CGA and cues and able to take steps to the chair using FWW CGA to min A. pt refused further ambulation but agreed to stay up on the chair. positioned pt on the chair. call light and table placed within reach. pt lives with her boyfriend but plans to go to her daughter's house upon d/c. pt does not know daughter's home set up but gave PT permission to call her daughter Jaida. Called pt's daughter and got info needed. also informed family that pt will need a FWW and a manual w/c. daughter stated that they will get one from the [facility]. pt also will have 2 steps to enter the house and daughter stated that they have 2 adults that can get pt inside the house. Gait Assessment Gait Gait Assistance Contact Guard Assist,Minimum Assistance Required: Distance (Feet) 5 Able to Maintain Yes Weight Bearing Status During Gait Assistive Devices Assistive Device Gait Belt,Front Wheeled Walker Orthotic/Prosthetic No Devices or Brace: Factors Limiting Gait Function Factors Limiting Decreased Activity Tolerance,Decreased Strength, Gait Function Difficulty Following Directions,Limited Range of Motion ,Pain,Poor Balance,Poor Safety Awareness PT-Balance Assessment Sitting Balance and Reactions Static Sitting Good Balance Ability Dynamic Sitting Good Balance Ability Standing Balance and Reactions Static Standing Fair Balance Ability Dynamic Standing Fair Balance Ability Device Used FWW M5 PT-IP Objective Assessments Start: 07/29/25 13:04 Freq: NEEDED Status: Active Protocol: Document 07/29/25 10:25 AB (Rec: 07/29/25 13:25 AB [id number]) Orientation Orientation/Cognition Level of Alertness Alert Orientation Name,Place,Situation Language Function No Deficits Noted Ability Safety Awareness Decreased Safety Awareness Memory Description No Deficits Noted Gross Range of Motion Lower Extremity ROM Assessment Within Functional Limits Impairments R ankle: NT: on walking boot Strength Lower Extremity Strength Assessment Right Impaired Ankle NT Muscle Tone Muscle Tone WNL Yes M6 PT-IP Treatment Start: 07/29/25 13:04 Freq: NEEDED Status: Active Protocol: Document 07/29/25 10:25 AB (Rec: 07/29/25 13:25 AB [id number]) Physical Therapy Treatment Education Education Provided Precautions,Weight Bearing Status,Safety M7 PT-IP Assessment and Plan Start: 07/29/25 13:04 Freq: NEEDED Status: Active Protocol: Document 07/29/25 10:25 AB (Rec: 07/29/25 13:25 AB [id number]) PT Summary Assessment and Plan Potential Rehabilitation Fair Potential Status of Condition Evolving at Evaluation Summary Impairments Pain,ROM,Strength,Balance,Coordination,Sensation,Tone, Cognition,Bed Mobility,Transfers,Gait,Activity Tolerance Assessment Summary pt is a 59 y/o F who is admitted for R hand cellulitis s/p I&D and also had R ankle I&D. pt is TDWB on RLE. pt with difficulty doing TDWB on RLE but able to do NWB on RLE. pt requiring CGA to min A with mobility using FWW. pt plans to go home and will have her daughter to assist her. pt will benefit from HHPT. Goals Bed Mobility Goal Independent Transfer Goal Independent,Front Wheeled Walker Gait Goal Independent,Front Wheel Walker Gait Distance 40 Days to Meet Goals 10 Frequency of Treatment Frequency Of Once a Day Treatment Treatment Plan Physical Therapy Bed Mobility Training,Transfer Training,Gait Training, Treatment Plan Therapeutic Exercise,Balance Retraining,Post Op Education,Discharge Planning,Hot or Cold Pack, Neuromuscular Re-ed,Coordination Retraining,Manual Therapy Precautions Brace RLE walking boot Weight Bearing Status Weight Bearing Touch Down Weight Bearing Status Allowed Weight RLE TDWB Bearing Amount ( enter % or #) (%) Recommendations To Nursing Amount of Assist 1 Person Assist Needed Discharge Recommendations PT Discharge Home with Assistance,Home Health Recommendations Equipment Needed for FWW, W/C Home Before Discharge Transportation Needs Private Vehicle at Discharge - PT assist 1
[2025-07-29] MEDS: MONTELUKAST 10 MG TABLET PO (11:45)
[2025-07-29] MEDS: BUDESONIDE FORMOTEROL 2 EACH INH ×2 (11:46→21:00)
[2025-07-29 12:30] VITALS: BP 90/56; PULSE 77; RESP 26; TEMP 36.6; O2SAT 99
--- NOTE | 2025-07-29 13:58 | DIET.CONS ---
Dietary Consultation Note Admission Date: 07/24/2025 11:11 Assessment: 59 y F admitted for cellulitis. Dietitian screened for LOS. Met with pt at bedside. Reports good appetite recently, trying to eat all 3 meals. Outside hospital usually just does 1 meal. Reports around a year ago was 200#. Contributes this loss to less frequent eating. Hx of active fentanyl use. Likely inadequate oral intakes and inadequate protein intake. Variable PO intakes 25-100%. DFM reviewed. NFPE unable to be performed at this time. Ht: 154.94 cm Wt: 60 kg BMI: 24.4 UBW: 70 lb loss in around 1 year, severe (-34% loss in 1 yr); EMR reviewed- 09/13/22 was 43 kg, 04/2018 was 88 kg Last BM: 07/28/25 (07/28/25 00:55) MNA: Tristan Score: 21 Diet: 07/28/25 Lunch General (Regular) Diet Diet Modifications: Food Texture: Level 7 - Regular Liquid Consistency: Level 0 - Thin Nutrition Percent Meal Consumed 50% 07/28/25 18:00 Percent Meal Consumed 25% 07/27/25 18:00 Labs: RBC 3.70 X10^6/uL (4.0-5.2) L 07/29/25 05:30 Hgb 9.6 g/dL (12.0-16.0) L 07/29/25 05:30 Hct 29.4 % (36-46) L 07/29/25 05:30 Creatinine 0.94 mg/dL (0.52-1.04) 07/25/25 04:55 Lactate 2.1 mmol/L (0.7-2.1) 07/24/25 09:35 Nutrition Diagnosis: Unintentional weight loss r/t inadequate oral intakes aeb 70 lb weight loss over a year Interventions: Encouraged 3 meals daily with good protein sources upon d/c (per [employer] note, likely to daughter's home), discussed protein sources Discussed ONS to support energy intake here, ONS 1x/d trial EER: 1500 kcals (25kcals/kg per BMI) 60 g protein (16% kcals) Monitoring/Evaluations: po intakes, ons intake Electronically Signed by: Jyotsna Osborne 07/29/25 13:58 Clinical Dietitian [address] [address]
--- NOTE | 2025-07-29 14:45 | PM.PNPO.1 ---
Subjective Subjective Date Patient Seen: 07/29/25 Time Patient Seen: 13:30 Interval history: ID: 59 yo F s/p right index finger incision and drainage for pyogenic flexor tenosynovitis on 07/26/25 and right septic arthritis on 07/28/25. S: Patient reports that her right hand pain has significantly improved. She also states that her right ankle feels better today. Denies F/C/NS/CP/SOB. O: Right Upper Extremity: Mild edema about hand. No tenderness to palpation along the volar aspect of the right index finger, palm or forearm. Incision sites look clean. No drainage. Fires AIN/PIN/median/radial/ulnar nerves. SILT all distributions. 2+ Radial pulse, brisk cap refill to all digits Right ankle: I did not take down the dressing today. ROM has improved. She states that when she moves her ankle it is not painful. IMAGING: Right ankle xray radiographs on July 26, 2025: No fractures or dislocations. Soft tissue swelling. Right foot MRI on July 26, 2025: Edema throughout the subcutaneous tissues. No focal abscess noted. Right ankle MRI on 07/27/25: I independently reviewed the MRI and agree with the impression below: IMPRESSION: 1. Moderate tibiotalar joint effusion with moderate tenosynovitis of tibialis posterior, flexor hallucis longus, and peroneus longus. These findings are concerning for possible infectious versus inflammatory arthropathy and inflammatory tenosynovitis without secondary findings osteomyelitis or septic arthritis. Recommend correlation with laboratory studies and if indicated, joint fluid sampling. 2. Circumferential subcutaneous fat edema in the lower leg and visualized foot without discrete loculated fluid collection on noncontrast exam. CRP 19.8 Cultures pending. A/P: 59 yo F s/p incision and drainage of the right index finger for pyogenic flexor tenosynovitis. This is doing clinically quite well. Her ankle is also doing much better and I will take her dressing down tomorrow to take a look at the incisions. Otherwise she can be touch down weightbearing on the right lower extremity and advance as tolerated. ?Admitted to Hospitalist (Appreciate assistance with this patient) ?PT/OT ?DVT Proph per primary team ?Multimodal Pain Control ?DISPO: Pending however the patient will follow up with Orthopedics in 2 weeks Exam Vital Signs (past 8 hours): - 07/29/25 08:00 07/29/25 12:30 Temperature 97.7 F 97.9 F Pulse Rate 75 77 Respiratory Rate 20 26 H Blood Pressure 95/65 90/56 L Pulse Oximetry 99 99 Oxygen Flow Rate 0 0 Fraction of Inspired Oxygen 24 SaO2/FiO2 Ratio 400 Oxygen Delivery Method Room Air Oxygen Flow Rate 0 Objective Labs 07/29/25 05:30 07/25/25 04:55 Labs: Laboratory Results - last 24 hr 07/28/25 07/29/25 14:55 05:30 WBC 12.9 H RBC 3.70 L Hgb 9.6 L Hct 29.4 L MCV 79.7 L MCH 26.1 MCHC 32.7 RDW 16.0 H Plt Count 255 Neut % (Auto) Not Reportable Lymph % (Auto) Not Reportable [place] % (Auto) Not Reportable Eos % (Auto) Not Reportable Baso % (Auto) Not Reportable Lymph # (Auto) Not Reportable [place] # (Auto) Not Reportable Baso # (Auto) Not Reportable Total Counted 100 Seg Neutrophils % 84.0 H Lymphocytes % (Manual) 13.0 L Monocytes % (Manual) 3.0 Neutrophils # (Manual) 15194 H RBC Morphology See below Anisocytosis 1+ H Microcytosis 1+ H C-Reactive Protein 19.8 H Fluid Color [place] Fluid Appearance Cloudy Fluid RBC Not Reportable Fld Tot Nucleated Cell Not Reportable Fluid Neutrophils % 91 Fluid Lymphocytes % 9 Fluid Crystals None present Body Fluid Clot Specimen clotted [facility] Medical History Abdominal wall pain Acquired hypothyroidism (05/15/11) Asthma (05/15/11) Chronic abdominal pain Chronic pain Chronic pain disorder Fibromyalgia Foot pain, left Migraine Overdose Postoperative pain of extremity Social History household members: significant other alcohol intake: former Assessment & Plan Post-op Postoperative Procedures: Procedures Operation Date: 07/25/25 16:30 Actual Procedure Side Surgeon p Incision and Drainage Right Hand Infection Right Mic Carcamo MD Operation Date: 07/28/25 13:00 Actual Procedure Side Surgeon p right ankle arthroscopic washout vs open Right Deanna Lopez, DO
--- NOTE | 2025-07-29 15:11 | OT.IP.EVAL ---
Current Diagnoses Sepsis, unspecified organism (07/24/25) Unspecified sprain of unspecified finger, initial encounter (07/24/25) Surgery Performed Operation Date: 07/25/25 16:30 Actual Procedures p Incision and Drainage Right Hand Infection(Right) - Mic Carcamo MD Operation Date: 07/28/25 13:00 Actual Procedures p right ankle arthroscopic washout vs open(Right) - Deanna Lopez, Past Medical History (Last Reviewed 07/24/25 @ 15:43 by Chris Fagan MD) Abdominal wall pain Acquired hypothyroidism (05/15/11) Asthma (05/15/11) Chronic abdominal pain Chronic pain Chronic pain disorder Fibromyalgia Foot pain, left Migraine Overdose Postoperative pain of extremity Occupational Therapy Inpatient Evaluation/Re-Eval M1 PT/OT-IP Prior Functional Status Start: 07/29/25 13:04 Freq: NEEDED Status: Active Protocol: Document 07/29/25 14:52 KEL (Rec: 07/29/25 15:10 SUSHILAOKANIL Desktop) Medical Review Prior Functional Status Medical History Yes Reviewed Communication able to make needs known Mobility and Gait pt stated that she was independent with all mobilities and ambulation without AD Activities of Daily Pt reports being I with BADL and IADL, to include Living and IADL's 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 Social History Household Members significant other Living Arrangements House Number of Floors ( One Floor Floors) Number of Stairs To 2 steps without rails to enter Enter/Railing? Home Environment Standard Height Toilet,Tub/Shower Home Equipment Hand Held Shower,Grab Bars In Shower Additional Social pt lives with her boyfriend but plans to go to her History Comment daughter's house upon d/c: info provided is regarding daughter's home set up. Pts dtr reports that she ordered a tub slide bench, BSC, FWW and is working on getting a WC. M2 OT-IP Current Condition Start: 07/29/25 14:52 Freq: Status: Active Protocol: Document 07/29/25 14:52 KEL (Rec: 07/29/25 15:10 SUSHILAOKANIL Desktop) Occupational Therapy Current Condition Current Condition Evaluation Date 07/29/25 Treatment Diagnosis R hand cellulitis s/p I&D, R ankle I&D, decreased self care Diagnosis Onset Date 10/19/25 Weight Bearing Status Weight Bearing Touch Down Weight Bearing Status M3 OT- IP Subjective and Pain Start: 07/29/25 14:52 Freq: Status: Active Protocol: Document 07/29/25 14:52 KEL (Rec: 07/29/25 15:10 KEL Despriscillaop) OT- Subjective Occupational Therapy Visit Type Type Initial Evaluation Visit Start Time 13:45 Visit Stop Time 14:12 Occupational Therapy Visit Comments Patient Comments Pt reclined in bed on entrance of OT. Pt agreeable to getting up to recliner and participating in OT eval. Patient/Caregiver To get better. Goals OT Pain Assessment Pain When Pain Assessed After Treatment Pain Present Pain Present Pain Reported Location R hand Intensity 4 Scale Used Numeric (0 - 10) M4 OT- IP ADL's Start: 07/29/25 14:52 Freq: Status: Active Protocol: Document 07/29/25 14:52 KEL (Rec: 07/29/25 15:10 KEL priscilla) OT [id number]-Hyxy-[id number] Comments OT Self-Feeding not meal time Comments OT ADL-Grooming General Evaluation Grooming Ability Standby Assistance,Total Assistance Comments OT Grooming Comments Pt washes her face on setup, pt brushes her hair on setup, pt requires total A to put her hair up. OT ADL-Oral Care Comments Oral Care Comments not observed. Pt is edentulous OT ADL-Dressing General Eval Lower Body Dressing Minimal Assistance Ability Areas Needing Socks Assistance OT ADL-Toileting Comments OT Toileting pt declined need at time of eval Comments OT ADL-Bathing Comments OT Bathing Comments pt declined at time of eval. Pt may benefit from sponge bath at this time. M5 OT- IP IADL's Start: 07/29/25 14:52 Freq: Status: Active Protocol: Document 07/29/25 14:52 KEL (Rec: 07/29/25 15:10 SUSHILAOKANLI [place]) OT-Instrumental Activities of Daily Living Deficits IADL Deficits Deficits Identified Home Safety Awareness Awareness of Need Good Awareness for Assistance at Home Home Safety Comments Pts dtr and spouse plan to assist pt. They are present during eval and discuss plans for pt safety. Medication Management Medication Caregiver Provides Supervision Management Medication dtr will assist prn Management Comments Money Management Money Management Caregiver Provides Supervision Money Management dtr will assist prn Comments Meal Preparation Meal Preparation Caregiver Provides Assist Meal Preparation dtr will assist prn Comments Hog Dropper Hog Dropper Caregiver Provides Assist Hog Dropper dtr will assist prn Comments Driving Driving Caregiver Provides Assist M6 OT- IP Functional Cognition Start: 07/29/25 14:52 Freq: Status: Active Protocol: Document 07/29/25 14:52 KEL (Rec: 07/29/25 15:10 [facility] Desktop) Cognitive Factors Limiting Selfcare Function Cognitive Ability Level of Alertness Alert Patient Orientation Name,Place,Situation Attention Span Capable of Focused Attention,Capable of Sustained Ability Attention Ability to Follow Able to Follow Multi-Step Commands Commands Memory Description No Deficits Noted Safety Awareness No Deficits Noted OT- Vision and Hearing OT- Hearing Assessment OT- Hearing WFL Assessment OT- Vision Assessment Visual Acuity WFL,Glasses All The Time M7 OT- IP Mobility and Balance Start: 07/29/25 14:52 Freq: Status: Active Protocol: Document 07/29/25 14:52 KEL (Rec: 07/29/25 15:10 [facility]- Bed Mobility Assessment Supine to Sit Supine to Sit Assist Standby Assistance Scooting Scooting to Edge of Standby Assistance Bed OT-Transfer Assessment Sit to and From Stand Sit to and from Contact Guard Assistance,1 Person Assistance Stand Transfers Transfer Ability Contact Guard Assistance,Minimal Assistance,1 Person Assistance Technique Transfer Destination Chair Transfer Technique Stand Step Pivot Devices Transfer Assistive Gait Belt,Front Wheeled Walker Devices Comments Mobility Comments Pt chose to hop and follow NWB status as opposed to TTWB when t/f to chair Pt denies increased hand pain when performing this. Pt does not need vcs to push up from bed or to reach back to surface. OT- Balance Assessment Sitting Balance and Reactions Static Sitting Good Balance Ability Dynamic Sitting Good Balance Ability Standing Balance and Reactions Static Standing Fair Balance Ability Dynamic Standing Fair Balance Ability M8 OT- IP Objective Assessments Start: 07/29/25 14:52 Freq: Status: Active Protocol: Document 07/29/25 14:52 KEL (Rec: 07/29/25 15:10 [facility] OT Gross Range of Motion Upper Extremity Range of Motion Assessment Right Impaired ROM Impairments Pt's R hand has decreased AROM/PROM. Pt is able to make ~75% of full fist actively and tolerates minimally beyond this with PROM. Pt can touch thumb to each finger tip and base of 5th digit. OT Strength Upper Extremity Strength Assessment Bilaterally Impaired Shoulder L 3+, R 4- Elbow L 4-, R 4- Hand L 4, R 3+ Hand Activities Concierge Strength Hand Dominance Right OT- Coordination Assessment Upper Extremity Finger Tapping Test Right UE Impaired OT Sensation Assessment Edema Edema Present Edema Comments Pt with increased edema R digits and palm. OT educates pt on elevating UE, gentle retrograde massage, and AROM for edema mgmt. M9 OT- IP Assessment and Plan Start: 07/29/25 14:52 Freq: Status: Active Protocol: Document 07/29/25 14:52 SUSHILAOKANIL (Rec: 07/29/25 15:10 SUSHILAOKANIL Desktop) OT Summary Assessment and Plan Potential Rehabilitation Good Potential Analytic Complexity Moderate at Evaluation Summary OT Impairments Pain,Range of Motion,Strength,Balance,Coordination, Functional Mobility,Self-Feeding,Grooming,Dressing, Toileting,Bathing,Toilet Transfers,Shower Transfers Progress Towards Progressing Toward Goals Goals Assessment Summary Pt is a 59 y/o F who is admitted for R hand cellulitis s/p I&D and also had R ankle I&D. Pt is TDWB on RLE, although pt opted to be NWB during tf with OT instead. Pt has decreased AROM R dominant hand, increased edema, decreased FMC, decreased BADLS, decreased functional mobility, and muscle weakness. Skilled OT services are appropriate to address these deficits and promote return towards PLOF. Pt plans to go home and will have her daughter to assist her. Pts dtr reports someone will be with pt 28/04. Pt will benefit from HHPT/OT. Goals Self-Feeding Goal Independent Grooming Goal Independent Dressing Goal Independent,Take Out Waiter/Waitress,Sock Aid Toileting Goal Independent Bathing Goal Minimal Assistance Toilet Transfer Goal Independent Shower Transfer Goal Standby Assistance,Tub/Shower Combination,Tub Transfer Bench Days to Meet Goals 15 Frequency of Treatment Other frequency 5x/wk Treatment Plan OT Treatment Plan ADL Training,Functional Mobility,Therapeutic Exercises, Patient/Family Education,Discharge Planning Discharge Recommendations OT Discharge Home with Assistance,Home Health Recommendations Transportation Needs Private Vehicle at Discharge
--- NOTE | 2025-07-29 15:19 | CM.DPC ---
DCP Cont: Per RN, family has questions about the medical POA pwk provided to them yesterday. SW met bedside with pt, Dtr Jaida, and Dtr's and reviewed the medical POA pwk. Pt confirms that her preference is her Dtr to be primary POA and currently does not want to assign any back up POAs. Pt did not have much feedback regarding her preferences regarding DNR/DNI or other medical wishes at this time and due to her hand swelling and pain she does not feel she can sign at this time. Preference is to finalize POA pwk closer to discharge and will likely need witnesses unless Notary available in-house. Family confirms that pt was able to ambulate some with FWW in room and boot on her foot but limited. They still feel she is mobilizing well enough to d/c to their house at discharge. Likely another couple to few days to confirm no further I&D needed and will continue on IV abx during her admission. LANDON Joyner
--- NOTE | 2025-07-29 15:31 | CM.SWNOTE ---
Discharge Planning/Care Management CM Discharge Assessment Start: 07/24/25 15:04 Freq: Status: Active Protocol: Document 07/25/25 15:38 BF (Rec: 07/25/25 15:40 BF [id number]) Discharge Planning Assessment Assigned Discharge LANDON Bragg Safety And Security Officer Provider [place] [employer] Insurance Medicaid DPOA/Assigned none Designee Name Advance Directives? No Advance Directives No on File History Provided By Patient,Medical Record Has Patient been No admitted in last 30 days? Prior Living House Arrangements Independent with ADL Yes 's Is patient alert and Yes oriented? Caregiver for No Another Barriers to Yes Discharge Comment Straight Medicaid, active fentanyl use Discharge Plan Home Transportation Family might be able to transport Arrangement Additional Comment Follow after I&D for needs, was already set up at Suboxone clinic Whiteboard Updated Yes in Patient Room with name and ext. # of High School History Teacher Review Status In Process Please Provide Date 07/25/25 Initial DC Assessment Was Performed Next Review Type Continued Stay Review CREMATORIUM OPERATOR - Stretcher Leveler Operator Assessment Start: 07/29/25 15:11 Freq: Status: Active Protocol: Document 07/29/25 15:12 DPL (Rec: 07/29/25 15:28 DPL [id number]) CREMATORIUM OPERATOR/Stretcher Leveler Operator Assessment Start date 07/29/25 Visit Start Time 14:00 End date 07/29/25 Visit End Time 15:30 Total time Care 90 minutes Management spent on patient visit-in minutes Presenting Problem Pt presented to the ED via [email or web address] [facility]/EMS after he was found on the [place] bridge with suicidal ideation. Pt had already realized that he did not want to , and was heading back to his van when the PD arrived. Pt had called his prior to going out on the bridge, told her he loved her and their 4-year old son, and said his goodbyes. She then called 911 and PD was dispatched to the bridge. Precipitating Event( Pt and his have been recently made homeless after s) a safety situation involving their landlord. 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 Right before he went to the bridge, he misunderstood his when she told him she was trying to get into a snf with her son. He had thought that she meant he was taking their son and leaving him, so became acutely suicidal and drove to the bridge. He realized after he called her that he had misunderstood, and that he did not want to , and wanted to live for his family. He was no longer suicidal by the time the [facility] arrived. He had not had prior attempts in the past. Patient Strengths Actively working and doing everything he can to better his life for his family, loves his family, values his own life, and understands that he felt a profound hopelessness that he could not at the time see his way forward from. Current Behavioral N/A Health Provider(s) Include Facility, Provider, Ph. # Psych. Hx Mental N/A Health and Chemical Dependency Family Hx of None Behavioral Abuse Psychiatric N/A Hospitalizations ( date(s)/location) Psychosocial He had already made contact with the [facility] information & Center and is wanting to get involved in their Support Systems supportive program for transitional housing. School/Work Works any odd jobs he can. Legal Matters - N/A Outstanding Issues Orientation (Person/ Oriented x4. Place/Time) Stated Mood Grateful, tearful, relieved. Affect (Congruent yes with Mood?) Thought Content - Congruent thought processes and stable mood, other than Specify/Describe being tearful out of gratitude of the assistance that Obsessions, he received in the ED. Delusions, Hallucinations Thought Processes ( Goal directed, appropriate to situation. Logical-Coherent- Goal Directed- Detailed-Tangential- Circumstantial- Logical-Disorganized -Thought Blocking) Speech (Normal-Slow- Normal Kwmtkvi-Hxrqu-Pwmr- Loud-Pressured) Motor (Normal- Normal Ijgnsykln-Rrbz-Nyygr ) Insight (Good-Fair- Good Poor/Limited) Judgement (Good-Fair Good -Poor/Limited) Impulse Control ( Adequate Adequate-Impaired) Memory (Immediate- Intact Recent-Remote, Impaired-Intact) Concentration ( Intact Intact-Impaired) Attention (Intact- Intact Impaired) Behavior ( Appropriate Appropriate- Inappropriate) Suicidal Ideation ( No Plan) Homicidal Ideation ( No Plan) Intervention CREMATORIUM OPERATOR met with pt for thorough assessment of suicidal ideation and impulse intent to complete suicide. Provided supportive counseling and problem solving re: next steps for stabilization. Pt is no longer suicidal and denies any lingering thoughts of self-harm. His and son were en route to the ED following this assessment. RA Plan No need for DCR or placement intervention. This CREMATORIUM OPERATOR was able to utilize the [employer] for a reimbursement for motel reservations made to cover tonight (Friday), Sat, and Sun (July 29) at the [facility]. He will plan to meet with the [facility] on Friday morning for an intake appointment. CREMATORIUM OPERATOR also called the [facility] and left a message advocating in his behalf. The [facility] was also able to provide a food gift card to [facility], and our kitchen staff provided sack lunch meals for the family for this evening. No further CREMATORIUM OPERATOR needs are identified at this time.
[2025-07-29 16:17] VITALS: BP 90/57; PULSE 82; RESP 22; TEMP 36.5; O2SAT 98
[2025-07-29] MEDS: cefTRIAXone 2,000 MG in SODIUM CHLORIDE 0.9% 100 ML 200 MG IV (16:17)
[2025-07-29 20:00] VITALS: BP 105/68; PULSE 87; RESP 18; TEMP 36.9; O2SAT 98
[2025-07-30] VITALS (10 sets, daily range): BP systolic 93–129; BP diastolic 59–79; PULSE 78–104; RESP 16–18; TEMP 36.1–37.1; O2SAT 94–100
[2025-07-30] MEDS: IPRATROPIUM 0.5 MG/2.5 ML NEB INH ×2 (00:45→15:29)
[2025-07-30] MEDS: LEVOTHYROXINE 25 MCG TABLET PO (06:01)
[2025-07-30 06:19] LABS: Hematocrit 27.2 % (36-46); Hemoglobin 9.0 g/dL (12.0-16.0); Mean Corpuscular HGB Conc 33.0 % (30-36); Mean Corpuscular Hemoglobin 26.4 PG (26-34); Mean Corpuscular Volume 79.9 fL (80-100); Platelet Count 286 X10^3/uL (150-400)
[2025-07-30 06:24] LABS: Add Manual Diff / Slide Review YES
[2025-07-30 07:32] LABS: Lymphocytes Percent Manual 20.0 % (25-45); Monocytes Percent Manual 5.0 % (2-11); Neutrophils Absolute Manual 6225 /uL (3000-5900); Segmented Neutrophils Percent 75.0 % (38-70); Total Cells Counted 100
--- NOTE | 2025-07-30 07:32 | P.PN_ITS ---
Subjective Subjective Date Patient Seen: 07/30/25 Interval history: This is a 59-year-old woman with chronic tobacco and active fentanyl use presented reporting an injury to her right hand, knee and ankle today. She states she was washing clothes in a basin hit her right hand against the back of level, falling backwards in hurting her knee and ankle. There was no head injury or loss of consciousness. She had been on Suboxone for opioid use disorder but stopped recently and started using inhaled fentanyl again. She denies IV drug use. Her last dose was at 1:00 a.m. this morning. She notes her right hand is swollen and painful with motion, as well as right knee and ankle, noting a right ankle is also swollen and hurts with movement and walking. She was noted to have a low blood pressure on route and was administered 2 L of normal saline. She is seen in the emergency department reporting ongoing pain. Hospital course: 07/25-: Increasing pain and swelling with night sweats with count escalated from 12-22 and worsening swelling of the hand patient has been taken to the OR for incision and drainage vancomycin increased and high-dose ceftriaxone given her 2nd dose supplemented by rifampin for tissue penetration 07/27: Right Ankle aspirated and washed out. 07/29: She declined Suboxone at this point. It interferes with her pain medication. Decreased pain in ankle and hand. There was much less swelling in the hand. 07/30: She is complaining of hunger while waiting for her NPO status to be determined pending possible reoperation. The white blood count has dropped steadily from 20/3 now down to 8.3. The hemoglobin is 9.0. The CRP has dropped steadily from 30/6 0.7, now down to 12.0. The BNP was normal in 07/25. She remains on ceftriaxone and rifampin with the 07/24 blood culture growing strep pyogenes. She has the protective right-sided walking boot on. Her admission urine drug screen was positive for methamphetamines, benzodiazepines and opioids. O: NAD, alert and oriented. Fluent speech. Lungs are clear, normal rate and effort. Heart is regular, no murmur gallop or rub. Abdomen is soft, non distended. Extremities are free of edema. She has wearing a protective postop boot on the right leg. The right hand is swollen. IMAGING: Ankle MRI: 1. Moderate tibiotalar joint effusion with moderate tenosynovitis of tibialis posterior, flexor hallucis longus, and peroneus longus. These findings are concerning for possible infectious versus inflammatory arthropathy and inflammatory tenosynovitis without secondary findings osteomyelitis or septic arthritis. Recommend correlation with laboratory studies and if indicated, joint fluid sampling. 2. Circumferential subcutaneous fat edema in the lower leg and visualized foot without discrete loculated fluid collection on noncontrast exam. Ankle x-ray: Soft tissue swelling without acute osseous abnormality. Foot MRI: Nonspecific subcutaneous edema which could represent cellulitis in the clinical setting of infection. No evidence of abscess or osteomyelitis. Focal susceptibility artifact at the tip of the great toe could represent small metallic foreign body. Correlation with plain film recommended. Echo: The ejection fraction is estimated to be 50-55%. There are no focal wall motion abnormalities. There is a mild dyssynchronous contraction pattern, consistent with a conduction abnormality. Diastolic parameters suggest a relaxation abnormality of the left ventricle, consistent with probable normal filling pressures. The right ventricle is normal in size and function. The left atrium is mildly dilated. There is mild to moderate mitral regurgitation. There is no other significant valvular heart disease. The aortic root is normal size. There is no obvious valvular vegetation identified on this exam. Consider VEL if there is a high degree of clinical suspicion for endocarditis and clinically appropriate. Upper extremity CT: Diffuse subcutaneous edema and soft tissue swelling is noted particularly over the dorsum of the wrist. No organized in capsulated fluid collection present to suggest focal abscess. Underlying osseous structures are appropriately mineralized without lytic lesion. Joint spaces are maintained. No marginal erosions Diffuse cellulitis without evidence of organized abscess or osseous erosion Chest x-ray: No acute cardiopulmonary abnormality is seen. Knee x-ray: A/P: 1. Streptococcus bacteremia (transthoracic echocardiogram without evidence of infective endocarditis). * Open debridement in the operating room right foot with Orthopedic surgery 07/25 * Repeat blood cultures no growth * High-dose ceftriaxone was given through Friday 06/29 then changed to Levaquin and rifampin. * Combined with rifampin for tissue penetration and Synergy * Not a candidate for outpatient IV therapy due active opiate use disorder 2. Right ankle septic arthritis. Likely due to contusion. MRI negative for osteomyelitis suppurative tenosynovitis. 3. Opioid use disorder and tolerance, with active use of inhaled fentanyl on the morning of admission. 4. Leukocytosis likely due to infection. 5. Volume depletion with acute kidney injury. Improved. 6. Elevated transaminases, likely reactive. 7. Hypokalemia. Improved. 8. Hypothyroidism. 9. Fibromyalgia. 10. GERD. 11. Depression. 12. Right index finger tenosynovitis. S/P I&P. PLAN: -Change to PO Rifampin and Levofloxacin on 07/30. We will complete 2 week course from 07/27-08/10. -discussed with Orthopedics today, she underwent ankle washout on 07/28. No further surgery anticipated. -continue pain control, she declined Suboxone as she feels it will interfere with her pain control. -she denies injection drug use -discharge home in 1-2 days. Exam Vital Signs (past 8 hours): - 07/30/25 00:00 07/30/25 00:47 07/30/25 04:00 Temperature 98.1 F 98.7 F Pulse Rate 81 104 H 89 Respiratory Rate 16 18 16 Blood Pressure 110/72 125/79 Pulse Oximetry 98 95 98 Oxygen Delivery Method Nasal Cannula Oxygen Flow Rate 0 2 0 Fraction of Inspired Oxygen 28 Fraction of Inspired Oxygen 28 SaO2/FiO2 Ratio 339 Oxygen Delivery Method Nasal Cannula Oxygen Flow Rate 0 Objective Labs 07/30/25 05:48 07/25/25 04:55 Labs: Laboratory Results - last 24 hr 07/30/25 05:48 WBC 8.3 RBC 3.40 L Hgb 9.0 L Hct 27.2 L MCV 79.9 L MCH 26.4 MCHC 33.0 RDW 15.6 H Plt Count 286 Neut % (Auto) Not Reportable Lymph % (Auto) Not Reportable [place] % (Auto) Not Reportable Eos % (Auto) Not Reportable Baso % (Auto) Not Reportable Lymph # (Auto) Not Reportable [place] # (Auto) Not Reportable Baso # (Auto) Not Reportable C-Reactive Protein 12.0 H [facility] Medical History Acquired hypothyroidism (05/15/11) Asthma (05/15/11) Foot pain, left Postoperative pain of extremity Overdose Migraine Abdominal wall pain Chronic abdominal pain Fibromyalgia Chronic pain disorder Chronic pain Social History household members: significant other Smoking Status: Former smoker alcohol intake: former Assessment & Plan Time-Based Coding :: [TOTAL MINUTES] spent with patient and on the chart (including review of chart, obtaining history, exam, reviewing outside data, placing orders, documenting exam and treatment plan, and counseling patient) on [DATE].
[2025-07-30 07:34] LABS: Anisocytosis 1+; Microcytosis 1+
[2025-07-30] MEDS: ACETAMINOPHEN 325 MG TABLET 650 MG PO ×3 (08:53→20:11)
[2025-07-30] MEDS: VENLAFAXINE 37.5 MG TABLET 75 MG PO ×2 (08:53→20:08)
[2025-07-30] MEDS: PANTOPRAZOLE DR 40 MG TABLET PO ×2 (08:54→20:07)
[2025-07-30] MEDS: ENOXAPARIN 40 MG/0.4 ML SYRINGE SUBCUT (08:54)
[2025-07-30] MEDS: CITALOPRAM 10 MG TABLET PO ×2 (08:54→20:07)
[2025-07-30] MEDS: GABAPENTIN 300 MG CAPSULE PO ×4 (08:54→20:07)
[2025-07-30] MEDS: PROPRANOLOL 10 MG TABLET 20 MG PO ×2 (08:54→20:07)
[2025-07-30] MEDS: DICYCLOMINE 10 MG CAPSULE 20 MG PO ×3 (08:54→20:08)
[2025-07-30] MEDS: MONTELUKAST 10 MG TABLET PO (08:54)
--- NOTE | 2025-07-30 12:36 | PM.PNPO.1 ---
Subjective Subjective Interval history: Interval history: ID: 59 yo F s/p right index finger incision and drainage for pyogenic flexor tenosynovitis on 07/26/25 and right septic arthritis on 07/28/25. S: Patient reports that her right hand pain has significantly improved. She also states that her right ankle feels better today. Denies F/C/NS/CP/SOB. O: Right Upper Extremity: Mild edema about hand. No tenderness to palpation along the volar aspect of the right index finger, palm or forearm. Incision sites look clean. No drainage. She is able to nearly make a composite fist. Right ankle: Incisions sites: Clean, dry, no surrounding erythema or warmth. Sutures in place ROM has improved. No joint irritability. IMAGING: Right ankle xray radiographs on July 26, 2025: No fractures or dislocations. Soft tissue swelling. Right foot MRI on July 26, 2025: Edema throughout the subcutaneous tissues. No focal abscess noted. Right ankle MRI on 07/27/25: I independently reviewed the MRI and agree with the impression below: IMPRESSION: 1. Moderate tibiotalar joint effusion with moderate tenosynovitis of tibialis posterior, flexor hallucis longus, and peroneus longus. These findings are concerning for possible infectious versus inflammatory arthropathy and inflammatory tenosynovitis without secondary findings osteomyelitis or septic arthritis. Recommend correlation with laboratory studies and if indicated, joint fluid sampling. 2. Circumferential subcutaneous fat edema in the lower leg and visualized foot without discrete loculated fluid collection on noncontrast exam. CRP 12.0 Cultures pending. Ankle cultures have so far showed no growth. A/P: 59 yo F s/p incision and drainage of the right index finger for pyogenic flexor tenosynovitis and arthroscopic irrigation and debridement right ankle. This is doing clinically quite well. Her ankle is also doing much better. She should start moving her ankle. Otherwise she can be touch down weightbearing on the right lower extremity and advance as tolerated. ?Admitted to Hospitalist (Appreciate assistance with this patient) ?PT/OT ?DVT Proph per primary team ?Multimodal Pain Control ?DISPO: Pending however the patient will follow up with Orthopedics in 2 weeks Exam Vital Signs (past 8 hours): - 07/30/25 07:35 07/30/25 08:00 07/30/25 12:00 Temperature 98.4 F 98.2 F Pulse Rate 95 H 80 Respiratory Rate 18 17 Blood Pressure 129/77 108/66 Pulse Oximetry 98 99 Oxygen Delivery Method Room Air Fraction of Inspired Oxygen 28 SaO2/FiO2 Ratio 339 Oxygen Delivery Method Room Air Oxygen Flow Rate 0 Objective Labs 07/30/25 05:48 07/25/25 04:55 Labs: Laboratory Results - last 24 hr 07/30/25 05:48 WBC 8.3 RBC 3.40 L Hgb 9.0 L Hct 27.2 L MCV 79.9 L MCH 26.4 MCHC 33.0 RDW 15.6 H Plt Count 286 Neut % (Auto) Not Reportable Lymph % (Auto) Not Reportable [place] % (Auto) Not Reportable Eos % (Auto) Not Reportable Baso % (Auto) Not Reportable Lymph # (Auto) Not Reportable [place] # (Auto) Not Reportable Baso # (Auto) Not Reportable Total Counted 100 Seg Neutrophils % 75.0 H Lymphocytes % (Manual) 20.0 L Monocytes % (Manual) 5.0 Neutrophils # (Manual) 6225 H Platelet Estimate Adequate on smear RBC Morphology See below Anisocytosis 1+ H Microcytosis 1+ H C-Reactive Protein 12.0 H PFSH Medical History Abdominal wall pain Acquired hypothyroidism (05/15/11) Asthma (05/15/11) Chronic abdominal pain Chronic pain Chronic pain disorder Fibromyalgia Foot pain, left Migraine Overdose Postoperative pain of extremity Social History household members: significant other Smoking Status: Former smoker alcohol intake: former Assessment & Plan Post-op Postoperative Procedures: Procedures Operation Date: 07/25/25 16:30 Actual Procedure Side Surgeon p Incision and Drainage Right Hand Infection Right Mic Carcamo MD Operation Date: 07/28/25 13:00 Actual Procedure Side Surgeon p right ankle arthroscopic washout vs open Right Deanna Lopez DO Postoperative status: doing well Postoperative plan: routine post-op care
--- NOTE | 2025-07-30 16:10 | PT.IPTN ---
Current Diagnoses Sepsis, unspecified organism (07/24/25) Unspecified sprain of unspecified finger, initial encounter (07/24/25) Surgery Performed Operation Date: 07/25/25 16:30 Actual Procedures p Incision and Drainage Right Hand Infection(Right) - Mic Carcamo MD Operation Date: 07/28/25 13:00 Actual Procedures p right ankle arthroscopic washout vs open(Right) - Deanna Lopez, DO Physical Therapy Treatment Note M2 PT-IP Current Condition Start: 07/29/25 13:04 Freq: NEEDED Status: Active Protocol: Document 07/29/25 10:25 AB (Rec: 07/29/25 13:25 AB [id number]) Physical Therapy Current Condition Current Condition Evaluation Date 07/29/25 Treatment Diagnosis R hand cellulitis s/p I&D; R ankle I&D; difficulty in walking Onset Date 07/24/25 M3 PT-IP Subjective Start: 07/29/25 13:04 Freq: NEEDED Status: Active Protocol: Document 07/30/25 16:10 AB (Rec: 07/30/25 16:57 AB Desktop) Subjective Physical Therapy Visit Type Type Treatment Note Visit Start Time 16:10 Visit Stop Time 16:30 Number of ONION TOPPER Visits 0 Physical Therapy Visit Comments Patient Comments agreeable to do PT Therapy Pain Assessment Pain When Pain Assessed At Rest Pain Present Pain Present Pain Reported Location Right Leg Scale Used pain scale not stated M4 PT-IP Mobility and Gait Start: 07/29/25 13:04 Freq: NEEDED Status: Active Protocol: Document 07/30/25 16:10 AB (Rec: 07/30/25 16:57 AB Desktop) PT-Bed Mobility Assessment Supine to Sit Supine to Sit Standby Assistance Sit to Supine Sit to Supine Standby Assistance PT-Transfer Assessment Sit to and From Stand Sit to and from Contact Guard Assistance,1 Person Assistance,Use of Stand Upper Extremities Equipment Transfer Assistive Gait Belt,Front Wheeled Walker Device Orthotic/Prosthetic No Devices or Brace: Comments Mobility Comments pt in bed and family in room. pt's daughter stated that she was able to get a FWW and w/c for pt and also has a bedside commode. pt agreed to do PT. pt in bed without walking boot on RLE and pt refused to use walking boot. supine to sit SBA. caregiver training conducted. educated daughter on how to use safety belt and how to assist pt. daughter was able to put safety belt on pt and assisted pt with ambulation in room using FWW. pt able to maintain NWB on RLE. pt requested to go back to bed. sit to supine SBA. positioned pt in bed. call light and table placed within reach. educated daughter on how to assist pt to enter the house using a w/c. also informed to get a ramp in if possible for safety. daughter understood. Gait Assessment Gait Gait Assistance Contact Guard Assist Required: Distance (Feet) 20 Able to Maintain Yes Weight Bearing Status During Gait Assistive Devices Assistive Device Gait Belt,Front Wheeled Walker Orthotic/Prosthetic No Devices or Brace: Factors Limiting Gait Function Factors Limiting Decreased Activity Tolerance,Decreased Strength, Gait Function Difficulty Following Directions,Limited Range of Motion ,Pain,Poor Balance,Poor Safety Awareness M5 PT-IP Objective Assessments Start: 07/29/25 13:04 Freq: NEEDED Status: Active Protocol: Document 07/29/25 10:25 AB (Rec: 07/29/25 13:25 AB [id number]) Orientation Orientation/Cognition Level of Alertness Alert Orientation Name,Place,Situation Language Function No Deficits Noted Ability Safety Awareness Decreased Safety Awareness Memory Description No Deficits Noted Gross Range of Motion Lower Extremity ROM Assessment Within Functional Limits Impairments R ankle: NT: on walking boot Strength Lower Extremity Strength Assessment Right Impaired Ankle NT Muscle Tone Muscle Tone WNL Yes M6 PT-IP Treatment Start: 07/29/25 13:04 Freq: NEEDED Status: Active Protocol: Document 07/30/25 16:10 AB (Rec: 07/30/25 16:57 AB Desktop) Physical Therapy Treatment Education Education Provided Precautions,Weight Bearing Status,Safety M7 PT-IP Assessment and Plan Start: 07/29/25 13:04 Freq: NEEDED Status: Active Protocol: Document 07/30/25 16:10 AB (Rec: 07/30/25 16:57 AB Desktop) PT Summary Assessment and Plan Potential Rehabilitation Fair Potential Summary Impairments Pain,ROM,Strength,Balance,Coordination,Sensation,Tone, Cognition,Bed Mobility,Transfers,Gait,Activity Tolerance Progress Towards Slow Progress due to Medical Issues,Slow Progress due Goals to Activity Tolerance,Slow Progress - Other Assessment Summary caregiver training conducted and daughter was able to assist pt with mobility using FWW. daughter was also able to obtained a FWW, manual w/c and bedside commode for pt to use at home. pt will benefit from HHPT. Goals Bed Mobility Goal Independent Transfer Goal Independent,Front Wheeled Walker Gait Goal Independent,Front Wheel Walker Gait Distance 40 Days to Meet Goals 10 Frequency of Treatment Frequency Of Once a Day Treatment Treatment Plan Physical Therapy Bed Mobility Training,Transfer Training,Gait Training, Treatment Plan Therapeutic Exercise,Balance Retraining,Post Op Education,Discharge Planning,Hot or Cold Pack, Neuromuscular Re-ed,Coordination Retraining,Manual Therapy Precautions Brace RLE walking boot Weight Bearing Status Weight Bearing Touch Down Weight Bearing Status Allowed Weight RLE TDWB Bearing Amount ( enter % or #) (%) Recommendations To Nursing Amount of Assist 1 Person Assist Needed Discharge Recommendations PT Discharge Home with Assistance,Home Health Recommendations Transportation Needs Private Vehicle at Discharge - PT assist 1
[2025-07-30] MEDS: DOCUSATE 100 MG CAPSULE PO (20:07)
[2025-07-30] MEDS: BUDESONIDE FORMOTEROL 2 EACH INH (20:13)
[2025-07-31 03:26] VITALS: BP 112/62; PULSE 87; RESP 16; TEMP 36.6; O2SAT 100
[2025-07-31 03:27] VITALS: BP 112/62; PULSE 87; RESP 16; TEMP 36.6; O2SAT 100
[2025-07-31] MEDS: LEVOTHYROXINE 25 MCG TABLET PO (05:38)
[2025-07-31 07:00] VITALS: BP 124/69; PULSE 93; RESP 16; TEMP 36.8; O2SAT 100
[2025-07-31 07:14] LABS: Alanine Aminotransferase 11 IU/L (<35); Albumin 2.6 g/dL (3.5-5.0); Albumin Globulin Ratio 0.7 (1.0-2.8); Alkaline Phosphatase 123 U/L (38-126); Blood Urea Nitrogen 12 mg/dL (7-17); Calcium 6.7 mg/dL (8.4-10.2); Carbon Dioxide 20 mmol/L (22-32); Chloride 104 mmol/L (98-107); Estimated Glomerular Filt Rate > 60 mL/min (>60); Globulin 3.5 g/dL (1.7-4.1); Glucose 122 mg/dL (70-99); HEMOLYSIS < 15 (0-50); Potassium 4.0 mmol/L (3.4-5.1); Sodium 130 mmol/L (137-145); Total Protein 6.1 g/dL (6.3-8.2)
[2025-07-31 07:25] LABS: Hematocrit 27.8 % (36-46); Hemoglobin 9.3 g/dL (12.0-16.0); Mean Corpuscular HGB Conc 33.5 % (30-36); Mean Corpuscular Hemoglobin 26.4 PG (26-34); Mean Corpuscular Volume 78.8 fL (80-100); Platelet Count 343 X10^3/uL (150-400)
[2025-07-31 07:27] LABS: Add Manual Diff / Slide Review YES
[2025-07-31] MEDS: IPRATROPIUM 0.5 MG/2.5 ML NEB INH (07:32)
[2025-07-31] MEDS: BUDESONIDE FORMOTEROL 2 EACH INH (07:36)
--- NOTE | 2025-07-31 07:38 | PM.DS.1 ---
History of Present Illness History of Present Illness Date Patient Seen: 07/31/25 Chief complaint: R Hand injury Narrative: 59-year-old woman with chronic tobacco and active fentanyl use presented reporting an injury to her right hand, knee and ankle today. She states she was washing clothes in a basin hit her right hand against the back of level, falling backwards in hurting her knee and ankle. There was no head injury or loss of consciousness. She had been on Suboxone for opioid use disorder but stopped recently and started using inhaled fentanyl again. She denies IV drug use. Her last dose was at 1:00 a.m. this morning. She notes her right hand is swollen and painful with motion, as well as right knee and ankle, noting a right ankle is also swollen and hurts with movement and walking. She was noted to have a low blood pressure on route and was administered 2 L of normal saline. She is seen in the emergency department reporting ongoing pain. Discharge Providers Provider Date of admission: 07/24/25 11:11 Discharge Date: 07/31/25 Primary care physician: Suleman Stone MD Consults: 07/25/25 19:54 Consult to Pharmacy Routine Comment: High fall risk 07/28/25 15:14 Consult to Occupational Therapy Evaluate & Treat Comment: Toe touch weight bearing right foot Physician Instructions: Evaluate and treat Consult to Physical Therapy Evaluate & Treat Comment: Toe touch weight bearing right foot Physician Instructions: Evaluate and Treat Discharge provider: Po Fagan MD Summary Hospital Course Hospital Course: Hospital course: 07/25-: Increasing pain and swelling with night sweats with count escalated from 12-22 and worsening swelling of the hand patient has been taken to the OR for incision and drainage vancomycin increased and high-dose ceftriaxone given her 2nd dose supplemented by rifampin for tissue penetration 07/27: Right Ankle aspirated and washed out. 07/29: She declined Suboxone at this point. It interferes with her pain medication. Decreased pain in ankle and hand. There was much less swelling in the hand. 07/30: She is complaining of hunger while waiting for her NPO status to be determined pending possible reoperation. The white blood count has dropped steadily from 20/3 now down to 8.3. The hemoglobin is 9.0. The CRP has dropped steadily from 30/6 0.7, now down to 12.0. The BNP was normal in 07/25. She remains on ceftriaxone and rifampin with the 07/24 blood culture growing strep pyogenes. She has the protective right-sided walking boot on. Her admission urine drug screen was positive for methamphetamines, benzodiazepines and opioids. 07/31: Her Hemoglobin is stable at 9.3 with a white blood count of 7.5. The CRP alona slightly from 12.0 up to 13.9. There are no other signs of recurrent infection. That will need to be monitored again at follow-up. The calcium dropped from 7.7 down to 6.7. Her appetite has returned and she is eating a normal range of foods so that should also recover. She is getting used to wearing the boot and standing on the right foot. Her sodium level of 130 should also be recovering with a return to normal diet. She will follow up with Orthopedics in 1 week. 1. Streptococcus bacteremia (transthoracic echocardiogram without evidence of infective endocarditis). Open debridement in the operating room right foot with Orthopedic surgery 07/25 Repeat blood cultures no growth High-dose ceftriaxone was given through Friday 06/29 then changed to Levaquin and rifampin. Combined with rifampin for tissue penetration and Synergy Not a candidate for outpatient IV therapy due active opiate use disorder 2. Right ankle septic arthritis. Likely due to contusion. MRI negative for osteomyelitis suppurative tenosynovitis. 3. Opioid use disorder and tolerance, with active use of inhaled fentanyl on the morning of admission. 4. Leukocytosis likely due to infection. 5. Volume depletion with acute kidney injury. Improved. 6. Elevated transaminases, likely reactive. 7. Hypokalemia. Improved. 8. Hypothyroidism. 9. Fibromyalgia. 10. GERD. 11. Depression. 12. Right index finger tenosynovitis. S/P I&P. PLAN: -Changed to PO Rifampin and Levofloxacin on 07/30. We will complete 2 week course of treatment from 07/27-08/10. -discussed with Orthopedics today, No further surgery anticipated. Status at Discharge Cognitive/behavioral status at discharge: at baseline, oriented Functional status at discharge: independent ambulation Overall status at discharge: patient is progressing back to baseline Time Spent with Patient Time spent: Greater than 30 minutes Exam Vital Signs (past 8 hours): - 07/31/25 03:26 07/31/25 03:27 Temperature 98 F 98 F Pulse Rate 87 87 Respiratory Rate 16 16 Blood Pressure 112/62 112/62 Pulse Oximetry 100 100 Fraction of Inspired Oxygen 28 SaO2/FiO2 Ratio 339 Oxygen Delivery Method Room Air Oxygen Flow Rate 0 Narrative Exam Narrative: NAD, alert and oriented. Fluent speech. Lungs are clear, normal rate and effort. Heart is regular, no murmur gallop or rub. Abdomen is soft, non distended. Extremities are free of edema. She is wearing a protective postop boot on the right leg. The right hand dorsal swelling is resolving and the incision/sutures on the palm of the hand look intact. Objective Labs 07/31/25 06:28 07/31/25 06:28 Labs: Laboratory Results - last 24 hr 07/31/25 06:28 WBC 7.5 RBC 3.53 L Hgb 9.3 L Hct 27.8 L MCV 78.8 L MCH 26.4 MCHC 33.5 RDW 15.2 H Plt Count 343 Neut % (Auto) Not Reportable Lymph % (Auto) Not Reportable [place] % (Auto) Not Reportable Eos % (Auto) Not Reportable Baso % (Auto) Not Reportable Lymph # (Auto) Not Reportable [place] # (Auto) Not Reportable Baso # (Auto) Not Reportable Sodium 130 L Potassium 4.0 Chloride 104 Carbon Dioxide 20 L BUN 12 Creatinine 0.69 Estimated GFR > 60 BUN/Creatinine Ratio 17.4 Glucose 122 H Calcium 6.7 L Total Bilirubin 0.7 AST 17 ALT 11 Alkaline Phosphatase 123 C-Reactive Protein 13.9 H Total Protein 6.1 L Albumin 2.6 L Globulin 3.5 Albumin/Globulin Ratio 0.7 L [facility] Medical History Acquired hypothyroidism (05/15/11) Asthma (05/15/11) Foot pain, left Postoperative pain of extremity Overdose Migraine Abdominal wall pain Chronic abdominal pain Fibromyalgia Chronic pain disorder Chronic pain Social History household members: significant other Smoking Status: Former smoker alcohol intake: former Discharge Plan Discharge Plan Patient Disposition: Home Provider Discharge Comment: Toe touch weight bearing to the right lower extremity with advancement to weight bearing as tolerated CAM boot at all times except for showering Follow up with orthopedics within 1 week of discharge Antibiotics per medicine team Discharge orders & Medications Prescriptions: New citalopram 10 mg Tablet 10 mg PO BID Qty: 60 0RF levofloxacin 250 mg Tablet 750 mg PO 0700 Qty: 10 0RF propranolol 10 mg Tablet 20 mg PO BID Qty: 60 0RF pantoprazole 40 mg Tablet,Delayed Release (Dr/Ec) 40 mg PO BID Qty: 60 0RF buprenorphine-naloxone 8-2 mg Tablet, Sublingual 1 tab sublingual DAILY Qty: 10 0RF Continued gabapentin [Neurontin] 300 MG capsule 900 mg PO QID Qty: 360 5RF diltiazem HCl 240 mg capsule,extended release 24hr 240 mg PO QDAY Qty: 30 0RF Rx Instructions: PT NEEDS TO EST CARE WTIH NEW PCP BEFORE ANY MORE FILLS venlafaxine 75 mg tablet 75 mg PO BID Qty: 1 0RF Rx Instructions: DENIED. Needs to establish care dicyclomine 20 mg tablet 20 mg PO TID Qty: 90 0RF levothyroxine 25 MCG tablet 25 mcg PO DAILY loratadine 10 MG tablet 10 mg PO QDAYP PRN (Reason: Allergy Symptoms) Combivent Respimat 4 GM mist 1 puff INH BID ondansetron 4 mg tablet,disintegrating 4 mg PO QID PRN (Reason: nausea and vomiting) Qty: 20 0RF omeprazole 20 mg capsule,delayed release(DR/EC) 20 mg PO QAM montelukast 10 mg tablet 10 mg PO DAILY budesonide-formoterol 160-4.5 mcg/actuation HFA aerosol inhaler 2 puff INHALATION BID Follow up/Referrals: Suleman Stone MD [Primary Care Provider, Family Practice] Diet/Activity/Treatments Diet: Diet as Tolerated Visit Report/Discharge Packet Stand Alone Forms: Patient Portal/API, Stroke Signs & Symptoms Discharge Data Primary Care Provider: Suleman Stone
[2025-07-31 07:44] VITALS: PULSE 90; RESP 18; O2SAT 100
[2025-07-31 07:59] LABS: Lymphocytes Percent Manual 14.0 % (25-45); Monocytes Percent Manual 14.0 % (2-11); Neutrophils Absolute Manual 5400 /uL (3000-5900); Segmented Neutrophils Percent 72.0 % (38-70); Total Cells Counted 100
[2025-07-31 08:00] LABS: Microcytosis 1+
[2025-07-31] MEDS: PANTOPRAZOLE DR 40 MG TABLET PO (08:46)
[2025-07-31] MEDS: DICYCLOMINE 10 MG CAPSULE 20 MG PO (08:46)
[2025-07-31] MEDS: PROPRANOLOL 10 MG TABLET 20 MG PO (08:48)
[2025-07-31] MEDS: ENOXAPARIN 40 MG/0.4 ML SYRINGE SUBCUT (08:48)
[2025-07-31] MEDS: VENLAFAXINE 37.5 MG TABLET 75 MG PO (08:48)
[2025-07-31] MEDS: MONTELUKAST 10 MG TABLET PO (08:48)
[2025-07-31] MEDS: GABAPENTIN 300 MG CAPSULE PO ×2 (08:48→12:59)
[2025-07-31] MEDS: CITALOPRAM 10 MG TABLET PO (08:48)
[2025-07-31] MEDS: ACETAMINOPHEN 325 MG TABLET 650 MG PO ×2 (08:49→12:59)
--- NOTE | 2025-07-31 11:20 | P.PN_ITS ---
Subjective Subjective Date Patient Seen: 07/31/25 Interval history: 59 year old female with a past medical history of fibromyalgia, migraines and opiate use is status post incision and drainage of the right index finger for pyogenic flexor tenosynovitis on 07/26/[address] Carcamo at [facility]. She then underwent incision and drainage of the right ankle for septic arthritis on 07/28/[address] Lopez at [facility]. SUBJECTIVE: Today she reports continued improvement in right hand and ankle pain. The CAM boot was discontinued yesterday and she was up walking around when she struck the right ankle causing increased pain. she denies fever, chills, chest pain, dypsnea, nausea and emesis. She has transitioned to oral antibiotics per medicine. OBJECTIVE: WBC 7.5 down from 8.3 yesterday CRP is 13.9 up from 12 yesterda Ankle cultures: Fungal culture - no growth Aerobic culture - no growth Anerobic culture - no growth Blood cultures 07/24/25 - Strep pyogenes (group a) Blood cultures 07/27/25 - no growth Right Upper Extremity: Reduced edema about hand. No tenderness to palpation along the volar aspect of the right index finger, palm or forearm. Incision sites look clean. No drainage. She is able to nearly make a complete fist. Right ankle: Incisions sites: Clean, dry, no surrounding erythema or warmth. Sutures in place. Improving ankle range of motion with no pain with short arc range of motion. Mild tenderness about the peroneal tendons only. Effusion about right foot is increased. Foot is resting in a dependent position in the bed without the CAM boot. IMAGING: Right ankle xray radiographs on July 26, 2025: No fractures or dislocations. Soft tissue swelling. Right foot MRI on July 26, 2025: Edema throughout the subcutaneous tissues. No focal abscess noted. Right ankle MRI on 07/27/25: I independently reviewed the MRI and agree with the impression below: IMPRESSION: 1. Moderate tibiotalar joint effusion with moderate tenosynovitis of tibialis posterior, flexor hallucis longus, and peroneus longus. These findings are concerning for possible infectious versus inflammatory arthropathy and inflammatory tenosynovitis without secondary findings osteomyelitis or septic arthritis. Recommend correlation with laboratory studies and if indicated, joint fluid sampling. 2. Circumferential subcutaneous fat edema in the lower leg and visualized foot without discrete loculated fluid collection on noncontrast exam. Assessment: 59 year old female with a past medical history of fibromyalgia, migraines and opiate use is status post incision and drainage of the right index finger for pyogenic flexor tenosynovitis on 07/26/[address] Carcamo at [facility]. She then underwent incision and drainage of the right ankle for septic arthritis on 07/28/[address] Lopez at [facility]. She has improving ankle range of motion with decreased pain however there is increased swelling about the foot. Her right hand has no pain or erythema. No systemic symptoms, vital signs stable. She shows clinical improvement and has transitioned to oral analgesics with plan to discharge home. This patient was seen and examined by myself and Dr Lopez, orthopedic surgeon. Plan:? * Touch down weight bearing with advancement to weightbearing as tolerated to right lower extremity with CAM boot walker * Begin gentle range of motion to right hand and ankle * DVT prophylaxis per primary team - enoxaparin * Continue multimodal analgesia with Tylenol, diluadid * Bowel regimen as needed? * Follow up with orthopedics 2 weeks post operatively?from I&D right hand - 08/08/25 * Ice to surgical site as needed? * Strict elevation of right foot with CAM boot to decrease swelling. * Appreciate expertise of internal medicine in co-managed care from chronic medical conditions associated with this patient * Disposition home pending internal medicine team * Given clinical improvement, orthopedics will sign off at this time. Please re- consult orthopedic surgery with any questions or concerns Exam Vital Signs (past 8 hours): - 07/31/25 03:26 07/31/25 03:27 07/31/25 07:44 Temperature 98 F 98 F Pulse Rate 87 87 90 Respiratory Rate 16 16 18 Blood Pressure 112/62 112/62 Pulse Oximetry 100 100 100 Oxygen Delivery Method Room Air Fraction of Inspired Oxygen 28 SaO2/FiO2 Ratio 339 Oxygen Delivery Method Room Air Oxygen Flow Rate 0 Objective Labs 07/31/25 06:28 07/31/25 06:28 Labs: Laboratory Results - last 24 hr 07/31/25 06:28 WBC 7.5 RBC 3.53 L Hgb 9.3 L Hct 27.8 L MCV 78.8 L MCH 26.4 MCHC 33.5 RDW 15.2 H Plt Count 343 Neut % (Auto) Not Reportable Lymph % (Auto) Not Reportable [place] % (Auto) Not Reportable Eos % (Auto) Not Reportable Baso % (Auto) Not Reportable Lymph # (Auto) Not Reportable [place] # (Auto) Not Reportable Baso # (Auto) Not Reportable Total Counted 100 Seg Neutrophils % 72.0 H Lymphocytes % (Manual) 14.0 L Monocytes % (Manual) 14.0 H Neutrophils # (Manual) 5400 Platelet Estimate Adequate on smear RBC Morphology See below Microcytosis 1+ H Sodium 130 L Potassium 4.0 Chloride 104 Carbon Dioxide 20 L BUN 12 Creatinine 0.69 Estimated GFR > 60 BUN/Creatinine Ratio 17.4 Glucose 122 H Calcium 6.7 L Total Bilirubin 0.7 AST 17 ALT 11 Alkaline Phosphatase 123 C-Reactive Protein 13.9 H Total Protein 6.1 L Albumin 2.6 L Globulin 3.5 Albumin/Globulin Ratio 0.7 L [facility] Medical History Acquired hypothyroidism (05/15/11) Asthma (05/15/11) Foot pain, left Postoperative pain of extremity Overdose Migraine Abdominal wall pain Chronic abdominal pain Fibromyalgia Chronic pain disorder Chronic pain Social History household members: significant other Smoking Status: Former smoker alcohol intake: former Assessment & Plan Time-Based Coding :: [TOTAL MINUTES] spent with patient and on the chart (including review of chart, obtaining history, exam, reviewing outside data, placing orders, documenting exam and treatment plan, and counseling patient) on [DATE]. PROFEE Clinical Sociologist Document charge(s): Yes
--- NOTE | 2025-07-31 14:18 | PC.NURSE ---
Discharge instructions given and understood by pt. PIV removed by SUZETTE Watkins. Pt received pt's pwn medication from pharmacy. Pt discharged with pt's family via private vehicle.
--- NOTE | 2025-07-31 14:38 | CM.DPNOTE ---
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 will go to dtrs house on pO abx. no further CM needs at this time P: dc home with dtr support/PO abx and OP f/u as needed. will continue to follow as needed for DCP Coordination. dtr to come pick pt up and transport home. Lissette Ayoub, [place]
== END 2025-07-31 14:40 | disposition home or self-care (01) | DRG 501 ==
LOC: ED 10:54 → AC 07-25 08:13
PROVIDERS: Family Medicine; Internal Medicine; Orthopaedic Surgery; Orthopaedic Surgery Adult Reconstructive Orthopaedic Surgery; Physician Assistant Surgical; Admitting Provider Internal Medicine; Emergency Provider Emergency Medicine; PCP Family Medicine; Referring Provider Emergency Medicine; Visit Provider Internal Medicine
PROC: 0L970ZZ Drainage of Right Hand Tendon, Open Approach (ICD-10-PCS; principal; 2025-07-25 16:30)
PROC: 0MD Bursae and Ligaments, Extraction (ICD-10-PCS; principal; 2025-07-28 13:00)
DX: M00.9 Pyogenic arthritis, unspecified (principal); N17.9 Acute kidney failure, unspecified; R78.81 Bacteremia; L03.011 Cellulitis of right finger; M25.561 Pain in right knee; F11.90 Opioid use, unspecified, uncomplicated; E87.6 Hypokalemia; E03.9 Hypothyroidism, unspecified; M79.7 Fibromyalgia; K21.9 Gastro-esophageal reflux disease without esophagitis; F32.A Depression, unspecified; S90.01XA Contusion of right ankle, initial encounter; M65.141 Other infective (teno)synovitis, right hand; E86.9 Volume depletion, unspecified; B95.0 Streptococcus, group A, as the cause of diseases classified elsewhere; I10 Essential (primary) hypertension; W18.30XA Fall on same level, unspecified, initial encounter; Z87.891 Personal history of nicotine dependence; Z79.890 Hormone replacement therapy
CPT/HCPCS: 36415; 71045; 73130; 73201; 73562; 73600; 73610; 73718; 73721; 80053; 80305; 80320; 81001; 82550; 83605; 84145; 84443; 84484; 84550; 85007; 85025; 86140; 87040; 87070; 87075; 87076; 87077; 87102; 87147; 87154; 87186; 87205; 89051; 89060; 93005; 93010; 93306; 94640; 96361; 96365; 96366; 96367; 96375; 97162; 97166; 97530; 99284; J0131; J0165; J0696; J1100; J1171; J1650; J1885; J2060; J2405; J2470; J2704; J3010; J3375; J3490; J7030; J7050; J7120; J7613; Q9967